=== PATIENT | male | born 1930 | race Caucasian/White ===

== ENCOUNTER 2016-08-01 09:15 | Inpatient (IN) | payer OTHER ==
[~2016-08-01] VITALS: Ht 180.3 cm; Wt 95.8 kg
[2016-08-01] MEDS ORDERED: IV NORMAL SALINE 500ML BAG 500 ML IV SCH (09:30)
--- NOTE | 2016-08-01 09:42 | ED.ADGEN ---
Adult General HPI HPI Patient is a 86 year old man, with history of CAD status post a "silent" IA that occurred about 14 years ago, no stents in place, hypertension, who presents to the emergency department with report of generalized weakness, dizziness and diaphoresis that occurred shortly after eating breakfast this morning. He was seated in the cafeteria at [facility], he comes her daily to visit his who is in rehabilitation, and had eaten breakfast, when he began to feel sweaty, slightly dizzy, and generally weak. He denies any chest pain or shortness of breath, any nausea or vomiting, any focal weakness numbness or tingling, any similar symptoms previously. He states he was feeling well up until this happened this morning. He states that he takes all of his medications as directed by his primary care provider, he does follow at the [place] for [place]. He states that he does not check his blood sugars on a regular basis, blood sugars noted to be 217 in the ED. Denies any injuries, any recent travel or surgery, any swelling in his extremities. 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 States that he did not feel as though he was going to quite pass out, although he was dizzy, denies any loss of consciousness. Does not take any blood thinners. Review of Systems Review of Systems Constitutional: Denies fever or chills. [] Eyes: Denies change in visual acuity. [] HENT: Denies nasal congestion or sore throat. [] Respiratory: Denies cough or shortness of breath. [] Cardiovascular: Denies chest pain or edema. [] GI: Denies abdominal pain, nausea, vomiting, bloody stools or diarrhea. [] : Denies dysuria. [] Musculoskeletal: Denies back pain or joint pain. [] Integument: Denies rash. [] Neurologic: Denies headache, focal weakness or sensory changes. Generalized weakness. Diaphoresis, lightheadedness and dizziness. [] Endocrine: Denies polyuria or polydipsia. [] Lymphatic: Denies swollen glands. [] Psychiatric: Denies depression or anxiety. [] Current Medications Current Medications Current Medications Medications (Trade) Dose Ordered Sig/Brendon Start Time Stop Time Status Last Admin Dose Admin Sodium Chloride (Iv Sodium Chloride 0.9% 1000ml Bag) 1,000 ml @ 1,000 mls/hr 1X ONCE 08/01/16 10:45 08/01/16 11:44 DC 08/01/16 11:17 1,000 MLS/HR Vancomycin HCl 250 ml @ 250 mls/hr 1X ONCE 08/01/16 12:30 08/01/16 13:29 UNV Vancomycin HCl 1 each 1 each PRN DAILY PRN 08/01/16 12:30 Allergies Allergies Allergies Coded Allergies Type Severity Reaction Last Updated Verified Penicillins Allergy Unknown Hives 08/01/16 Yes Physical Exam Physical Exam Constitutional: Well developed, well nourished, no acute distress, non-toxic appearance. [] HENT: Normocephalic, atraumatic, bilateral external ears normal, oropharynx moist, no oral exudates, nose normal. [] Eyes: PERRLA, EOMI, conjunctiva normal, no discharge. [] Neck: Normal range of motion, no tenderness, supple, no stridor. [] Cardiovascular:Heart rate irregular, no murmur , S1, S2, soft heart sounds, no rubs or gallops. [] Lungs & Thorax: Bilateral breath sounds clear to auscultation, no wheezing, rhonchi, rales. No chest wall tenderness or crepitus. [] Abdomen: Bowel sounds normal, soft, no tenderness, no masses, no rebound, rigidity, no guarding, no pulsatile masses. [] Skin: Warm, dry, no erythema, no rash. [] Back: No tenderness, no CVA tenderness. [] Extremities: No tenderness, no cyanosis, no clubbing, ROM intact, no edema. Negative Homans sign. Patient able to the cane at baseline.] Neurologic: Alert and oriented X 3, normal motor function, normal sensory function, no focal deficits noted. [] 5 out of 5 strength in all extremities, normal neurologic examination. Psychologic: Affect normal, judgement normal, mood normal. [] Current Patient Data Vital Signs Vital Signs Date Time Temp Pulse Resp B/P Pulse Ox O2 Delivery O2 Flow Rate FiO2 08/01/16 11:52 60 18 99/62 97 Room Air 08/01/16 09:15 97.7 97.7 Lab Values Laboratory Tests Test 08/01/16 09:30 08/01/16 09:37 08/01/16 09:38 08/01/16 10:35 White Blood Count 8.1x10^3/uL (4.0-11.0) Red Blood Count 4.71x10^6/uL (4.30-5.70) Hemoglobin 14.8g/dL (13.0-17.5) Hematocrit 43.2% (39.0-53.0) Mean Corpuscular Volume 92fL (79-100) Mean Corpuscular Hemoglobin 32pg (25-35) Mean Corpuscular Hemoglobin Concent 34g/dL (31-37) Red Cell Distribution Width 14.0% (11.5-14.5) Platelet Count 168x10^3/uL (140-400) Neutrophils (%) (Auto) 81% (31-73) H Lymphocytes (%) (Auto) 11% (24-48) L Monocytes (%) (Auto) 6% (0-9) Eosinophils (%) (Auto) 1% (0-3) Basophils (%) (Auto) 1% (0-3) Neutrophils # (Auto) 6.5x10^3uL (1.8-7.7) Lymphocytes # (Auto) 0.9x10^3/uL (1.0-4.8) L Monocytes # (Auto) 0.5x10^3/uL (0.0-1.1) Eosinophils # (Auto) 0.1x10^3/uL (0.0-0.7) Basophils # (Auto) 0.1x10^3/uL (0.0-0.2) Prothrombin Time 13.7SEC (11.7-14.0) Prothrombin Time INR 1.1 (0.8-1.1) PTT 26SEC (24-38) Sodium Level 141mmol/L (136-145) Potassium Level 4.2mmol/L (3.5-5.1) Chloride Level 105mmol/L (98-107) Carbon Dioxide Level 27mmol/L (21-32) Anion Gap 9 (6-14) 20mmol/L (6-14) H Blood Urea Nitrogen 26mg/dL (8-26) Creatinine 1.5mg/dL (0.7-1.3) H Estimated GFR (Cockcroft-Gault) 44.4 BUN/Creatinine Ratio 17 (6-20) Glucose Level 257mg/dL (70-99) H 239mg/dL (70-99) H Lactic Acid Level 4.2mmol/L (0.4-2.0) *H 4.1mmol/L (0.4-2.0) *H Calcium Level 8.9mg/dL (8.5-10.1) Total Bilirubin 0.8mg/dL (0.2-1.0) Aspartate Amino Transferase (AST) 18U/L (15-37) Alanine Aminotransferase (ALT) 18U/L (16-63) Alkaline Phosphatase 83U/L (46-116) Troponin I Quantitative < 0.017ng/mL (0.000-0.055) LX-Sfp-Q-Type Natriuretic Peptide 308pg/mL (0-449) Total Protein 6.9g/dL (6.4-8.2) Albumin 3.6g/dL (3.4-5.0) Albumin/Globulin Ratio 1.1 (1.0-1.7) POC Troponin I 0.00ng/ml (<0.08) POC Hemoglobin 13.6g/dL (14-18) L POC Hematocrit 40% (37-52) POC Sodium 140mmol/L (135-145) POC Potassium 4.2mmol/L (3.5-5.0) POC Chloride 105mmol/L (98-110) POC Total CO2 21mmol/L (23-32) L POC Blood Urea Nitrogen 26mg/dL (8-26) POC Creatinine 1.3mg/dL (0.5-1.4) POC Ionized Calcium (Dewayne) 1.05mmol/L (1.13-1.32) L Test 08/01/16 11:00 08/01/16 11:08 Influenza Type A Antigen Negative (NEGATIVE) Influenza Type B Antigen Negative (NEGATIVE) Urine Collection Type U cath Urine Color Yellow Urine Clarity Clear Urine pH 5.5 Urine Specific [place] 1.020 Urine Protein Negativemg/dL (NEG-TRACE) Urine Glucose (UA) 500mg/dL (NEG) Urine Ketones (Stick) Negativemg/dL (NEG) Urine Blood Negative (NEG) Urine Nitrite Negative (NEG) Urine Bilirubin Negative (NEG) Urine Urobilinogen Dipstick 0.2mg/dL (0.2 mg/dL) Urine Leukocyte Esterase Negative (NEG) Urine RBC 0/HPF (0-2) Urine WBC 0/HPF (0-4) Urine Bacteria 0/HPF (0-FEW) Urine Opiates Screen Neg (NEG) Urine Methadone Screen Neg (NEG) Urine Barbiturates Neg (NEG) Urine Phencyclidine Screen Neg (NEG) Urine Amphetamine/Methamphetamine Neg (NEG) Urine Benzodiazepines Screen Neg (NEG) Urine Cocaine Screen Neg (NEG) Urine Cannabinoids Screen Neg (NEG) Urine Ethyl Alcohol Neg (NEG) Laboratory Tests 08/01/16 09:30 Laboratory Tests 08/01/16 09:30 08/01/16 09:38 EKG EKG EC: Irregular rhythm, atrial flutter, heart rate 56 bpm, left axis deviation, Q waves noted in the inferior leads, QTc of 417, QRS of 84, mild baseline artifact noted, low limb lead voltage noted, no prior for comparison. As interpreted by me. [] Radiology/Procedures Radiology/Procedures [] [facility] [address] [place] [address] IMAGING REPORT Signed PATIENT: NANCY LYNN ACCOUNT: [id number] : 1930 LOCATION: ER AGE: 86 SEX: M EXAM STATUS: PRE ER ORD. PHYSICIAN: KELLY MANE DO REASON: near syncope PROCEDURE: PORTABLE CHEST 1V Portable chest, 08/01/2016: History: Near syncope The heart size and pulmonary vascularity are normal. There is calcific plaquing and tortuosity of the thoracic aorta. A small dense nodule in the left midlung is probably a granuloma. No acute infiltrates are seen. There is no evidence of pleural fluid. Moderate hypertrophic spurring is present in the spine IMPRESSION: No acute cardiopulmonary abnormality is detected. DICTATED and SIGNED BY: LEXX MARIE MD DATE: 08/01/16 1006 CC: KELLY MANE DO ~ Course & Med Decision Making Course & Med Decision Making Pertinent Labs and Imaging studies reviewed. (See chart for details) Patient noted to be atrial fibrillation, heart rate is in the 50s to 60s, no history of arrhythmia. He denies any chest pain, shortness of breath, nausea, vomiting, or any symptoms or complaints at this time, denies any preceding symptoms, states that he was feeling fairly well until this episode of diaphoresis and lightheadedness occurred this morning. Blood pressures noted to be low 100s over 60s on arrival, patient did drop his pressure is 80/50, received fluid bolus in the ED, noted to have a lactic of 4.2, a second 500 L bolus was given, patient's blood pressures did improve to low 100s, and 90s over 60s. He continues to deny any complaints at this time. Chest x-ray was unremarkable, laboratory studies do not reveal any evidence of infection or other significant abnormality, aside from the lactic acidosis stated. Patient placed on additional IV fluids, repeat lactic ordered, along with troponins. Although no source of infection identified, due to lactic acidosis, patient given a dose of broad-spectrum antibiotics, and infectious disease was consulted for further evaluation. Blood and urine cultures are pending, although urine culture was negative for bacteria. Findings as above discussed with Dr. Andino of internal medicine, patient accepted to her service as a full admission to the cardiac telemetry floor, with consultation for cardiology and infectious disease as stated. Patient remained comfortable, atrial flutter on the monitor, transfer to the floor without issue. Dragon Disclaimer Dragon Disclaimer This electronic medical record was generated, in whole or in part, using a voice recognition dictation system. Departure Impression: Primary Impression: Near syncope Additional Impressions: Hypotension Lactic acidosis Disposition: 09 ADMITTED INPATIENT Admitting Physician: Jorge Andino Condition: IMPROVED Problem Qualifiers Additional Impressions: Hypotension Hypotension type: unspecified hypotension type Qualified Code: I95.9 - Hypotension, unspecified KELLY MANE DO Aug 01, 2016 09:42
[2016-08-01 09:43] LABS: BASO # 0.1 x10^3/uL (0.0-0.2); BASO % 1 % (0-3); EOS % 1 % (0-3); HEMATOCRIT 43.2 % (39.0-53.0); HEMOGLOBIN 14.8 g/dL (13.0-17.5); LYMPH # 0.9 x10^3/uL (1.0-4.8); LYMPH % 11 % (24-48); MEAN CORPUSCULAR HEMOGLOBIN 32 pg (25-35); MEAN CORPUSCULAR HGB CONC 34 g/dL (31-37); MEAN CORPUSCULAR VOLUME 92 fL (79-100); MONO % 6 % (0-9); NEUT % 81 % (31-73); PLATELET COUNT 168 x10^3/uL (140-400); RED BLOOD COUNT 4.71 x10^6/uL (4.30-5.70); WHITE BLOOD COUNT 8.1 x10^3/uL (4.0-11.0)
[2016-08-01 09:44] LABS: POTASSIUM ISTAT 4.2 mmol/L (3.5-5.0)
[2016-08-01 09:54] LABS: CALCIUM 8.9 mg/dL (8.5-10.1); CREATININE 1.5 mg/dL (0.7-1.3); GFR 44.4; POTASSIUM 4.2 mmol/L (3.5-5.1)
[2016-08-01 09:59] LABS: INR 1.1 (0.8-1.1); PROTHROMBIN TIME PATIENT 13.7 SEC (11.7-14.0)
[2016-08-01 10:00] LABS: ALBUMIN 3.6 g/dL (3.4-5.0); ALBUMIN/GLOBULIN RATIO 1.1 (1.0-1.7); TOTAL BILIRUBIN 0.8 mg/dL (0.2-1.0); TOTAL PROTEIN 6.9 g/dL (6.4-8.2)
[2016-08-01] MEDS ORDERED: IV NORMAL SALINE 500ML BAG 500 ML IV ONE ×2 (10:00→10:30)
--- NOTE | 2016-08-01 10:09 | RAD ---
Portable chest, 08/01/2016: History: Near syncope The heart size and pulmonary vascularity are normal. There is calcific plaquing and tortuosity of the thoracic aorta. A small dense nodule in the left midlung is probably a granuloma. No acute infiltrates are seen. There is no evidence of pleural fluid. Moderate hypertrophic spurring is present in the spine IMPRESSION: No acute cardiopulmonary abnormality is detected.
[2016-08-01] MEDS ORDERED: IV NORMAL SALINE 1000ML BAG 1,000 ML IV ONE (10:45)
[2016-08-01 11:22] LABS: BILIRUBIN,URINE NEGATIVE (NEG); GLUCOSE,URINE 500 mg/dL (NEG); NITRITE,URINE NEGATIVE (NEG); PH,URINE 5.5; PROTEIN,URINE NEGATIVE (NEG-TRACE); UROBILINOGEN,URINE 0.2 mg/dL (0.2 mg/dL)
[2016-08-01 11:29] LABS: BARBITURATES NEG (NEG); BENZODIAZEPINES NEG (NEG); CANNABINOIDS NEG (NEG); COCAINE NEG (NEG); METHADONE NEG (NEG); OPIATES NEG (NEG); PHENCYCLIDINE NEG (NEG)
[2016-08-01 11:31] LABS: BACTERIA,URINE 0 /HPF (0-FEW); RBC,URINE 0 /HPF (0-2); WBC,URINE 0 /HPF (0-4)
[2016-08-01 11:34] LABS: ETHANOL, URINE NEG (NEG)
--- NOTE | 2016-08-01 11:45 | EKG ---
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
[2016-08-01 12:04] LABS: OBC FLU VALID
[2016-08-01] MEDS ORDERED: VANCOMYCIN 1GM IVPB FOR OMNI 250 ML IV ONE (12:30)
[2016-08-01] MEDS ORDERED: VANCOMYCIN PER PHARMACY MC PRN (12:30)
[2016-08-01] MEDS ORDERED: VANCOMYCIN 2 GM in IV NORMAL SALINE 500ML BAG 500 ML IV ONE (12:45)
[2016-08-01] MEDS ORDERED: CEFEPIME HCL 2 GM in IV NORMAL SALINE 100ML 100 ML IV ONE (13:00)
[2016-08-01] MEDS ORDERED: ONDANSETRON PF 4 MG/2 ML VIAL. IV PRN ×2 (14:00→15:30)
[2016-08-01] MEDS ORDERED: ACETAMINOPHEN 325 MG TABLET. PO PRN ×2 (14:00→15:30)
[2016-08-01] MEDS ORDERED: DEXTROSE 50% 25 GM / 50ML DISP.SYRIN. IV PRN (14:00)
[2016-08-01 15:00] VITALS: BP 108/65
--- NOTE | 2016-08-01 15:25 | PDOC1 ---
History and Physical Date of Admission Date of Admission 08/01/16 Identification/Chief Complaint Chief Complaint lightheaded, shaky Problems: Source Source: Chart review, Patient History of Present Illness History of Present Illness Patient is a 86 year old man, with history of CAD status post a "silent" [place] that occurred about 14 years ago, no stents in place, denies HTN, was sen to ER for lightheaded and shaky today. pt was in our cafeteria and will visit his in [facility] for [facility]. He suddenly feels lightheadd, diaphoresis, shaky, cannot stand up or walk. Some nurse get wheelchair and sent him to ER. pT DEnies fever, cough, sob. He said he dosento remember if had irregular heart beat, saying normal IN the past few days, no N/V, Diarrhea. Denies feeling fainting. He said not taking any home meds, not seen a Vice [employer]ing Services. blood sugars noted to be 217 in the ED. Denies any injuries, any recent travel or surgery, any swelling in his extremities. in ER was found santiago A flutter, which is new to him , low BP, got 2L ivf BOLUS ,back to sinus later. LA 4 Past Medical History Cardiovascular: [place] Past Surgical History Past Surgical History: No pertinent history Family History Family History: No Significant Social History Smoke: No ALCOHOL: none Drugs: None Current Problem List Problem List Problems Medical Problems: (1) Hypotension Status: Acute (2) Lactic acidosis Status: Acute (3) Near syncope Status: Acute Current Medications Current Medications Current Medications Medications (Trade) Dose Ordered Sig/Brendon Start Time Stop Time Status Last Admin Dose Admin Acetaminophen (Tylenol) 650 mg PRN Q4HRS PRN 08/01/16 14:00 08/02/16 13:59 Cefepime HCl/ Sodium Chloride (Maxipime/Iv Sodium Chloride 0.9% 100ml) 100 ml @ 200 mls/hr 1X ONCE 08/01/16 13:00 08/01/16 13:29 DC 08/01/16 12:59 200 MLS/HR Dextrose 12.5 gm PRN Q15MIN PRN 08/01/16 14:00 Insulin Aspart (Novolog) 0-5 UNITS TIDWMEALS 08/01/16 17:00 Ondansetron HCl 4 mg 4 mg PRN Q8HRS PRN 08/01/16 14:00 08/02/16 13:59 Sodium Chloride (Iv Sodium Chloride 0.9% 1000ml Bag) 1,000 ml @ 125 mls/hr Q8H 08/01/16 13:46 08/02/16 13:45 Vancomycin HCl 250 ml @ 250 mls/hr 1X ONCE 08/01/16 12:30 08/01/16 13:29 UNV Vancomycin HCl 1 each 1 each PRN DAILY PRN 08/01/16 12:30 Vancomycin HCl/ Sodium Chloride (Iv Sodium Chloride 0.9% 500ml Bag) 500 ml @ 250 mls/hr 1X ONCE 08/01/16 12:45 08/01/16 14:44 DC Allergies Allergies Allergies Coded Allergies Type Severity Reaction Last Updated Verified Penicillins Allergy Unknown Hives 08/01/16 Yes ROS Review of System CONSTITUTIONAL: No fever or chills EYES: No recent changes SKIN: No rash or itching CARDIOVASCULAR: No chest pain, syncope, palpitations, or edema RESPIRATORY: No SOB or cough GASTROINTESTINAL: No nausea, vomiting or abdominal pain NEUROLOGICAL: No headaches or weakness ENDOCRINE: No cold or heat intolerance GENITOURINARY: No urgency or frequency of urination MUSCULOSKELETAL: No back pain or joint pain LYMPHATICS: No enlarged lymph nodes PSYCHIATRIC: No anxiety or depression Physical Exam Physical Exam GEN.: No apparent distress. Alert and oriented. HEENT: Head is normocephalic, atraumatic NECK: Supple. LUNGS: Clear to auscultation. HEART: RRR, S1, S2 present. Peripheral pulses intact ABDOMEN: Soft, nontender. Positive bowel sounds. EXTREMITIES: Without any cyanosis. bl legs 1+edema NEUROLOGIC: Normal speech, normal tone PSYCHIATRIC: Normal affect, normal mood. SKIN: No ulcerations Vitals Vitals Vital Signs Date Time Temp Pulse Resp B/P Pulse Ox O2 Delivery O2 Flow Rate FiO2 08/01/16 12:52 75 18 108/66 97 Room Air 08/01/16 09:15 97.7 97.7 Labs Labs Laboratory Tests Test 08/01/16 09:30 08/01/16 09:37 08/01/16 09:38 08/01/16 10:35 White Blood Count 8.1x10^3/uL (4.0-11.0) Red Blood Count 4.71x10^6/uL (4.30-5.70) Hemoglobin 14.8g/dL (13.0-17.5) Hematocrit 43.2% (39.0-53.0) Mean Corpuscular Volume 92fL (79-100) Mean Corpuscular Hemoglobin 32pg (25-35) Mean Corpuscular Hemoglobin Concent 34g/dL (31-37) Red Cell Distribution Width 14.0% (11.5-14.5) Platelet Count 168x10^3/uL (140-400) Neutrophils (%) (Auto) 81% (31-73) Lymphocytes (%) (Auto) 11% (24-48) Monocytes (%) (Auto) 6% (0-9) Eosinophils (%) (Auto) 1% (0-3) Basophils (%) (Auto) 1% (0-3) Neutrophils # (Auto) 6.5x10^3uL (1.8-7.7) Lymphocytes # (Auto) 0.9x10^3/uL (1.0-4.8) Monocytes # (Auto) 0.5x10^3/uL (0.0-1.1) Eosinophils # (Auto) 0.1x10^3/uL (0.0-0.7) Basophils # (Auto) 0.1x10^3/uL (0.0-0.2) Prothrombin Time 13.7SEC (11.7-14.0) Prothromb Time International Ratio 1.1 (0.8-1.1) Activated Partial Thromboplast Time 26SEC (24-38) Sodium Level 141mmol/L (136-145) Potassium Level 4.2mmol/L (3.5-5.1) Chloride Level 105mmol/L (98-107) Carbon Dioxide Level 27mmol/L (21-32) Anion Gap 9 (6-14) 20mmol/L (6-14) Blood Urea Nitrogen 26mg/dL (8-26) Creatinine 1.5mg/dL (0.7-1.3) Estimated GFR (Cockcroft-Gault) 44.4 BUN/Creatinine Ratio 17 (6-20) Glucose Level 257mg/dL (70-99) 239mg/dL (70-99) Lactic Acid Level 4.2mmol/L (0.4-2.0) 4.1mmol/L (0.4-2.0) Calcium Level 8.9mg/dL (8.5-10.1) Total Bilirubin 0.8mg/dL (0.2-1.0) Aspartate Amino Transf (AST/SGOT) 18U/L (15-37) Alanine Aminotransferase (ALT/SGPT) 18U/L (16-63) Alkaline Phosphatase 83U/L (46-116) Troponin I Quantitative < 0.017ng/mL (0.000-0.055) OQ-Aip-X-Type Natriuretic Peptide 308pg/mL (0-449) Total Protein 6.9g/dL (6.4-8.2) Albumin 3.6g/dL (3.4-5.0) Albumin/Globulin Ratio 1.1 (1.0-1.7) Bedside Troponin I 0.00ng/ml (<0.08) Bedside Hemoglobin 13.6g/dL (14-18) Bedside Hematocrit 40% (37-52) Bedside Sodium 140mmol/L (135-145) Bedside Potassium 4.2mmol/L (3.5-5.0) Bedside Chloride 105mmol/L (98-110) Bedside Total CO2 21mmol/L (23-32) Bedside Blood Urea Nitrogen 26mg/dL (8-26) Bedside Creatinine 1.3mg/dL (0.5-1.4) Bedside Ionized Calcium (Dewayne) 1.05mmol/L (1.13-1.32) Test 08/01/16 11:00 08/01/16 11:08 Influenza Type A Antigen Negative (NEGATIVE) Influenza Type B Antigen Negative (NEGATIVE) Urine Collection Type U cath Urine Color Yellow Urine Clarity Clear Urine pH 5.5 Urine Specific [place] 1.020 Urine Protein Negativemg/dL (NEG-TRACE) Urine Glucose (UA) 500mg/dL (NEG) Urine Ketones (Stick) Negativemg/dL (NEG) Urine Blood Negative (NEG) Urine Nitrite Negative (NEG) Urine Bilirubin Negative (NEG) Urine Urobilinogen Dipstick 0.2mg/dL (0.2 mg/dL) Urine Leukocyte Esterase Negative (NEG) Urine RBC 0/HPF (0-2) Urine WBC 0/HPF (0-4) Urine Bacteria 0/HPF (0-FEW) Urine Opiates Screen Neg (NEG) Urine Methadone Screen Neg (NEG) Urine Barbiturates Neg (NEG) Urine Phencyclidine Screen Neg (NEG) Urine Amphetamine/Methamphetamine Neg (NEG) Urine Benzodiazepines Screen Neg (NEG) Urine Cocaine Screen Neg (NEG) Urine Cannabinoids Screen Neg (NEG) Urine Ethyl Alcohol Neg (NEG) Laboratory Tests Test 08/01/16 09:30 08/01/16 09:37 08/01/16 09:38 08/01/16 10:35 White Blood Count 8.1x10^3/uL (4.0-11.0) Red Blood Count 4.71x10^6/uL (4.30-5.70) Hemoglobin 14.8g/dL (13.0-17.5) Hematocrit 43.2% (39.0-53.0) Mean Corpuscular Volume 92fL (79-100) Mean Corpuscular Hemoglobin 32pg (25-35) Mean Corpuscular Hemoglobin Concent 34g/dL (31-37) Red Cell Distribution Width 14.0% (11.5-14.5) Platelet Count 168x10^3/uL (140-400) Neutrophils (%) (Auto) 81% (31-73) Lymphocytes (%) (Auto) 11% (24-48) Monocytes (%) (Auto) 6% (0-9) Eosinophils (%) (Auto) 1% (0-3) Basophils (%) (Auto) 1% (0-3) Neutrophils # (Auto) 6.5x10^3uL (1.8-7.7) Lymphocytes # (Auto) 0.9x10^3/uL (1.0-4.8) Monocytes # (Auto) 0.5x10^3/uL (0.0-1.1) Eosinophils # (Auto) 0.1x10^3/uL (0.0-0.7) Basophils # (Auto) 0.1x10^3/uL (0.0-0.2) Prothrombin Time 13.7SEC (11.7-14.0) Prothromb Time International Ratio 1.1 (0.8-1.1) Activated Partial Thromboplast Time 26SEC (24-38) Sodium Level 141mmol/L (136-145) Potassium Level 4.2mmol/L (3.5-5.1) Chloride Level 105mmol/L (98-107) Carbon Dioxide Level 27mmol/L (21-32) Anion Gap 9 (6-14) 20mmol/L (6-14) Blood Urea Nitrogen 26mg/dL (8-26) Creatinine 1.5mg/dL (0.7-1.3) Estimated GFR (Cockcroft-Gault) 44.4 BUN/Creatinine Ratio 17 (6-20) Glucose Level 257mg/dL (70-99) 239mg/dL (70-99) Lactic Acid Level 4.2mmol/L (0.4-2.0) 4.1mmol/L (0.4-2.0) Calcium Level 8.9mg/dL (8.5-10.1) Total Bilirubin 0.8mg/dL (0.2-1.0) Aspartate Amino Transf (AST/SGOT) 18U/L (15-37) Alanine Aminotransferase (ALT/SGPT) 18U/L (16-63) Alkaline Phosphatase 83U/L (46-116) Troponin I Quantitative < 0.017ng/mL (0.000-0.055) HT-Vij-P-Type Natriuretic Peptide 308pg/mL (0-449) Total Protein 6.9g/dL (6.4-8.2) Albumin 3.6g/dL (3.4-5.0) Albumin/Globulin Ratio 1.1 (1.0-1.7) Bedside Troponin I 0.00ng/ml (<0.08) Bedside Hemoglobin 13.6g/dL (14-18) Bedside Hematocrit 40% (37-52) Bedside Sodium 140mmol/L (135-145) Bedside Potassium 4.2mmol/L (3.5-5.0) Bedside Chloride 105mmol/L (98-110) Bedside Total CO2 21mmol/L (23-32) Bedside Blood Urea Nitrogen 26mg/dL (8-26) Bedside Creatinine 1.3mg/dL (0.5-1.4) Bedside Ionized Calcium (Dewayne) 1.05mmol/L (1.13-1.32) Test 08/01/16 11:00 08/01/16 11:08 Influenza Type A Antigen Negative (NEGATIVE) Influenza Type B Antigen Negative (NEGATIVE) Urine Collection Type U cath Urine Color Yellow Urine Clarity Clear Urine pH 5.5 Urine Specific [place] 1.020 Urine Protein Negativemg/dL (NEG-TRACE) Urine Glucose (UA) 500mg/dL (NEG) Urine Ketones (Stick) Negativemg/dL (NEG) Urine Blood Negative (NEG) Urine Nitrite Negative (NEG) Urine Bilirubin Negative (NEG) Urine Urobilinogen Dipstick 0.2mg/dL (0.2 mg/dL) Urine Leukocyte Esterase Negative (NEG) Urine RBC 0/HPF (0-2) Urine WBC 0/HPF (0-4) Urine Bacteria 0/HPF (0-FEW) Urine Opiates Screen Neg (NEG) Urine Methadone Screen Neg (NEG) Urine Barbiturates Neg (NEG) Urine Phencyclidine Screen Neg (NEG) Urine Amphetamine/Methamphetamine Neg (NEG) Urine Benzodiazepines Screen Neg (NEG) Urine Cocaine Screen Neg (NEG) Urine Cannabinoids Screen Neg (NEG) Urine Ethyl Alcohol Neg (NEG) VTE Prophylaxis Ordered VTE Prophylaxis Devices: Yes VTE Pharmacological Prophylaxi: Yes Assessment/Plan Assessment/Plan 1. new syncope 2. bradycardia with aflutter with hypotension 3. lactate acidosis 4. CKD3 plan: 1. card, id consult 2. ivf 2 L in ER 3. repeat LA 4. echo 5. check tsh, cycle CE pt likely dosenot have infection, got vanco and cefepime in ER, waiting for ID consult. fu miguelx, bcx EMI MOORE MD Aug 01, 2016 15:25
--- NOTE | 2016-08-01 16:05 | PDOC ---
Infectious Disease Note Vital Sign Vital Signs Vital Signs Date Time Temp Pulse Resp B/P Pulse Ox O2 Delivery O2 Flow Rate FiO2 08/01/16 12:52 75 18 108/66 97 Room Air 08/01/16 09:15 97.7 97.7 Labs Lab Laboratory Tests Test 08/01/16 09:30 08/01/16 09:37 08/01/16 09:38 08/01/16 10:35 White Blood Count 8.1x10^3/uL (4.0-11.0) Red Blood Count 4.71x10^6/uL (4.30-5.70) Hemoglobin 14.8g/dL (13.0-17.5) Hematocrit 43.2% (39.0-53.0) Mean Corpuscular Volume 92fL (79-100) Mean Corpuscular Hemoglobin 32pg (25-35) Mean Corpuscular Hemoglobin Concent 34g/dL (31-37) Red Cell Distribution Width 14.0% (11.5-14.5) Platelet Count 168x10^3/uL (140-400) Neutrophils (%) (Auto) 81% (31-73) Lymphocytes (%) (Auto) 11% (24-48) Monocytes (%) (Auto) 6% (0-9) Eosinophils (%) (Auto) 1% (0-3) Basophils (%) (Auto) 1% (0-3) Neutrophils # (Auto) 6.5x10^3uL (1.8-7.7) Lymphocytes # (Auto) 0.9x10^3/uL (1.0-4.8) Monocytes # (Auto) 0.5x10^3/uL (0.0-1.1) Eosinophils # (Auto) 0.1x10^3/uL (0.0-0.7) Basophils # (Auto) 0.1x10^3/uL (0.0-0.2) Prothrombin Time 13.7SEC (11.7-14.0) Prothromb Time International Ratio 1.1 (0.8-1.1) Activated Partial Thromboplast Time 26SEC (24-38) Sodium Level 141mmol/L (136-145) Potassium Level 4.2mmol/L (3.5-5.1) Chloride Level 105mmol/L (98-107) Carbon Dioxide Level 27mmol/L (21-32) Anion Gap 9 (6-14) 20mmol/L (6-14) Blood Urea Nitrogen 26mg/dL (8-26) Creatinine 1.5mg/dL (0.7-1.3) Estimated GFR (Cockcroft-Gault) 44.4 BUN/Creatinine Ratio 17 (6-20) Glucose Level 257mg/dL (70-99) 239mg/dL (70-99) Lactic Acid Level 4.2mmol/L (0.4-2.0) 4.1mmol/L (0.4-2.0) Calcium Level 8.9mg/dL (8.5-10.1) Total Bilirubin 0.8mg/dL (0.2-1.0) Aspartate Amino Transf (AST/SGOT) 18U/L (15-37) Alanine Aminotransferase (ALT/SGPT) 18U/L (16-63) Alkaline Phosphatase 83U/L (46-116) Troponin I Quantitative < 0.017ng/mL (0.000-0.055) QB-Owl-M-Type Natriuretic Peptide 308pg/mL (0-449) Total Protein 6.9g/dL (6.4-8.2) Albumin 3.6g/dL (3.4-5.0) Albumin/Globulin Ratio 1.1 (1.0-1.7) Bedside Troponin I 0.00ng/ml (<0.08) Bedside Hemoglobin 13.6g/dL (14-18) Bedside Hematocrit 40% (37-52) Bedside Sodium 140mmol/L (135-145) Bedside Potassium 4.2mmol/L (3.5-5.0) Bedside Chloride 105mmol/L (98-110) Bedside Total CO2 21mmol/L (23-32) Bedside Blood Urea Nitrogen 26mg/dL (8-26) Bedside Creatinine 1.3mg/dL (0.5-1.4) Bedside Ionized Calcium (Dewayne) 1.05mmol/L (1.13-1.32) Test 08/01/16 11:00 08/01/16 11:08 Influenza Type A Antigen Negative (NEGATIVE) Influenza Type B Antigen Negative (NEGATIVE) Urine Collection Type U cath Urine Color Yellow Urine Clarity Clear Urine pH 5.5 Urine Specific [place] 1.020 Urine Protein Negativemg/dL (NEG-TRACE) Urine Glucose (UA) 500mg/dL (NEG) Urine Ketones (Stick) Negativemg/dL (NEG) Urine Blood Negative (NEG) Urine Nitrite Negative (NEG) Urine Bilirubin Negative (NEG) Urine Urobilinogen Dipstick 0.2mg/dL (0.2 mg/dL) Urine Leukocyte Esterase Negative (NEG) Urine RBC 0/HPF (0-2) Urine WBC 0/HPF (0-4) Urine Bacteria 0/HPF (0-FEW) Urine Opiates Screen Neg (NEG) Urine Methadone Screen Neg (NEG) Urine Barbiturates Neg (NEG) Urine Phencyclidine Screen Neg (NEG) Urine Amphetamine/Methamphetamine Neg (NEG) Urine Benzodiazepines Screen Neg (NEG) Urine Cocaine Screen Neg (NEG) Urine Cannabinoids Screen Neg (NEG) Urine Ethyl Alcohol Neg (NEG) Objective Assessment Lactic acidosis Hypotension PCN allergy A-flutter Renal insufficiency Diabetes Plan Plan of Care vanc and cefepime Check procalcitonin level monitor labs/temp f/u BC Supportive care Thank you Patient examined. Chart reviewed. Case discussed with TRAIN CONDUCTOR. Agree with above plan. MILLIE LINDER APRN Aug 01, 2016 16:05 ZAN CARRERA MD Aug 01, 2016 16:31
[2016-08-01] MEDS: IV NORMAL SALINE 1000ML BAG 1,000 ML IV SCH (16:35)
[2016-08-01] MEDS: ENOXAPARIN 40 MG/0.4 ML DISP.SYRIN. SQ SCH (16:49)
[2016-08-01] MEDS: VANCOMYCIN 1.5 GM in IV NORMAL SALINE 500ML BAG 500 ML IV SCH (17:00)
[2016-08-01] MEDS: INSULIN ASPART 300 UNITS/3 ML INSULN.PEN SQ SCH (17:00)
[2016-08-01] MEDS ORDERED: METF10002 PO (18:53)
[2016-08-01] MEDS ORDERED: LORA10TA3 PO (18:53)
[2016-08-01] MEDS ORDERED: TERA5CAP3 PO (18:54)
[2016-08-01] MEDS ORDERED: SIMV80TA3 PO (18:54)
[2016-08-01] MEDS ORDERED: FOSI20TA PO (18:55)
[2016-08-01] MEDS ORDERED: GLIP10TA13 PO (18:55)
[2016-08-01] MEDS ORDERED: OMEP20CA9 PO (18:56)
[2016-08-01] MEDS ORDERED: METO25TA4 PO (18:56)
[2016-08-01] MEDS ORDERED: CHOL10003 PO (18:57)
[2016-08-01 20:05] VITALS: BP 112/56
[2016-08-01] MEDS ORDERED: PANTOPRAZOLE 40 MG TABLET. PO ONE (23:00)
[2016-08-01 23:25] VITALS: BP 112/61
[2016-08-02] MEDS: IV NORMAL SALINE 1000ML BAG 1,000 ML IV SCH ×2 (01:30→09:19)
[2016-08-02 02:09] LABS: BASO # 0.1 x10^3/uL (0.0-0.2); BASO % 1 % (0-3); EOS % 1 % (0-3); HEMATOCRIT 36.4 % (39.0-53.0); HEMOGLOBIN 12.6 g/dL (13.0-17.5); LYMPH # 1.1 x10^3/uL (1.0-4.8); LYMPH % 14 % (24-48); MEAN CORPUSCULAR HEMOGLOBIN 32 pg (25-35); MEAN CORPUSCULAR HGB CONC 35 g/dL (31-37); MEAN CORPUSCULAR VOLUME 92 fL (79-100); MONO % 8 % (0-9); NEUT % 77 % (31-73); PLATELET COUNT 142 x10^3/uL (140-400); RED BLOOD COUNT 3.95 x10^6/uL (4.30-5.70); WHITE BLOOD COUNT 8.4 x10^3/uL (4.0-11.0)
[2016-08-02 02:17] LABS: CALCIUM 7.9 mg/dL (8.5-10.1); CREATININE 1.1 mg/dL (0.7-1.3); GFR 63.5; POTASSIUM 4.1 mmol/L (3.5-5.1)
[2016-08-02 03:35] VITALS: BP 130/72
[2016-08-02 07:22] VITALS: BP 123/75
--- NOTE | 2016-08-02 07:25 | CONS ---
DATE OF CONSULTATION: 08/01/2016 Mark Eastman APRN dictating for Zan Carrera MD, infectious disease. REFERRING PHYSICIAN: Dr. Dumont. REASON FOR CONSULTATION: Lactic acidosis. HISTORY OF PRESENT ILLNESS: This patient is an 86-year-old gentleman with a history of diabetes mellitus who was having breakfast in our hospital cafeteria earlier this morning. After he ate, he became acutely weak, diaphoretic and lightheaded. He was sent to the emergency room where he was found to be bradycardic, hypotensive and in atrial flutter. His pressures improved with IV fluid boluses. He had a normal white blood cell count with a lactic acid of 4.2. Troponin was less than 0.017. Urinalysis was unremarkable for infection. Blood cultures were obtained. The patient was started on vancomycin and cefepime by the ER doctor out of concern for possible infection. PAST MEDICAL HISTORY: Diabetes mellitus and "silent myocardial infarction." PAST SURGICAL HISTORY: No recent surgeries. SOCIAL HISTORY: The patient is . He lives at home and is independent of his activities of daily living. His is currently residing in a custodial where he visits her daily. 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 ALLERGIES: PENICILLIN causing a rash-type reaction. MEDICATIONS: Vancomycin and cefepime. Other medications are available and have been reviewed on the MAR. He is unable to recall home medications. His daughter is apparently working on getting a list from the [employer]. REVIEW OF SYSTEMS: Denies fever. The patient is feeling better. He had the shakes earlier, for which he attributes to a cold room. He has a runny nose. Denies headaches, sinus congestion or sore throat. Denies cough, shortness of air or wheezing. Denies chest pain, palpitations or swelling. Denies nausea, vomiting or diarrhea. He has some mild dysuria after being straight cathed in the ER. Denies back pain. He is ambulatory with a cane. Denies rash. Denies joint pain or muscle aches. PHYSICAL EXAMINATION: GENERAL: male lying in bed, in no apparent distress. VITAL SIGNS: Temperature is 97.7, blood pressure 108/66, heart rate 75, respiratory rate 18, pulse oximetry is 97% on room air. Weight is 215 pounds. HEENT: Pupils are equally round. Normal conjunctivae. Oral mucosa is pink and moist. Edentulous. NECK: Supple. LUNGS: Clear to auscultation bilaterally. HEART: Normal S1 and S2. ABDOMEN: Bowel sounds are present, soft, nontender. EXTREMITIES: No gross edema or cyanosis. SKIN: Without rash. Warm to touch. NEUROLOGIC: Alert and oriented x 3. Moves all extremities. LABORATORY DATA: WBC 8.1, hemoglobin 14.8, platelet count 168,000. Sodium 140, potassium 4.2, creatinine 1.5, BUN 26, glucose 239. Lactic acid 4.1, total bilirubin 0.8, AST 18, ALT 18. Troponin less than 0.017, albumin 3.6. MICROBIOLOGY DATA: Urinalysis unremarkable for infection. Urine toxicology negative. Influenza screen negative. RADIOLOGICAL STUDIES: Chest x-ray: No acute infiltrates or evidence of pleural fluid. A small dense nodule in the left midlung noted, probably a granuloma. IMPRESSION: 1. Lactic acidosis. 2. Hypotension. 3. PENICILLIN ALLERGY. 4. Atrial flutter. 5. Renal insufficiency. 6. Diabetes mellitus. PLAN: For now, continue the vancomycin and cefepime. Check a procalcitonin level. Monitor laboratory values and temperature. We will follow up on blood cultures. Supportive care. Thank you, Dr. Dumont, for asking us to participate in this patient's care. Should you have further questions or concerns, please call. The patient seen and examined and plan of care implemented by Dr. Zan Carrera. ZAN CARRERA MD DR: JONY/sharon JOB#: [id number] / [id number] IRON
[2016-08-02] MEDS: METFORMIN 1,000 MG TABLET PO SCH ×3 (08:00→16:46)
[2016-08-02] MEDS: INSULIN ASPART 300 UNITS/3 ML INSULN.PEN SQ SCH ×3 (08:00→17:00)
--- NOTE | 2016-08-02 08:14 | PDOC ---
Infectious Disease Note Subjective Subjective Didn't sleep well with noises Has Upper resp symptoms. in rehab with a lot of "runny nosed women" ROS ROS GEN: Denies fevers, chills, sweats HEENT: Denies blurred vision, sore throat CV: Denies chest pain RESP: Denies shortness of air. Occ cough with mild congestion GI: Denies n/v/d NEURO: Denies confusion, dizziness MSK: Denies weakness, joint pain/swelling Vital Sign Vital Signs Vital Signs Date Time Temp Pulse Resp B/P Pulse Ox O2 Delivery O2 Flow Rate FiO2 08/02/16 07:22 98.3 61 21 123/75 93 Room Air 98.3 Physical Exam PHYSICAL EXAM GENERAL: NAD, Alert HEENT: PERRL, OC/OP -clear NECK: Supple, no JVD, no LN LUNGS: Clear HEART: S1S2, no gallop, no murmur ABD: Soft, NT, no organomegaly, no rebound EXT: No edema, no cyanosis IMMIGRATION ASSOCIATE: Alert, oriented x 3, no focal neurologic deficit SKIN: No rash IV: ok Labs Lab Laboratory Tests Test 08/01/16 09:30 08/01/16 09:37 08/01/16 09:38 08/01/16 10:00 White Blood Count 8.1x10^3/uL (4.0-11.0) Red Blood Count 4.71x10^6/uL (4.30-5.70) Hemoglobin 14.8g/dL (13.0-17.5) Hematocrit 43.2% (39.0-53.0) Mean Corpuscular Volume 92fL (79-100) Mean Corpuscular Hemoglobin 32pg (25-35) Mean Corpuscular Hemoglobin Concent 34g/dL (31-37) Red Cell Distribution Width 14.0% (11.5-14.5) Platelet Count 168x10^3/uL (140-400) Neutrophils (%) (Auto) 81% (31-73) Lymphocytes (%) (Auto) 11% (24-48) Monocytes (%) (Auto) 6% (0-9) Eosinophils (%) (Auto) 1% (0-3) Basophils (%) (Auto) 1% (0-3) Neutrophils # (Auto) 6.5x10^3uL (1.8-7.7) Lymphocytes # (Auto) 0.9x10^3/uL (1.0-4.8) Monocytes # (Auto) 0.5x10^3/uL (0.0-1.1) Eosinophils # (Auto) 0.1x10^3/uL (0.0-0.7) Basophils # (Auto) 0.1x10^3/uL (0.0-0.2) Prothrombin Time 13.7SEC (11.7-14.0) Prothromb Time International Ratio 1.1 (0.8-1.1) Activated Partial Thromboplast Time 26SEC (24-38) Sodium Level 141mmol/L (136-145) Potassium Level 4.2mmol/L (3.5-5.1) Chloride Level 105mmol/L (98-107) Carbon Dioxide Level 27mmol/L (21-32) Anion Gap 9 (6-14) 20mmol/L (6-14) Blood Urea Nitrogen 26mg/dL (8-26) Creatinine 1.5mg/dL (0.7-1.3) Estimated GFR (Cockcroft-Gault) 44.4 BUN/Creatinine Ratio 17 (6-20) Glucose Level 257mg/dL (70-99) 239mg/dL (70-99) Lactic Acid Level 4.2mmol/L (0.4-2.0) Calcium Level 8.9mg/dL (8.5-10.1) Total Bilirubin 0.8mg/dL (0.2-1.0) Aspartate Amino Transf (AST/SGOT) 18U/L (15-37) Alanine Aminotransferase (ALT/SGPT) 18U/L (16-63) Alkaline Phosphatase 83U/L (46-116) Troponin I Quantitative < 0.017ng/mL (0.000-0.055) PZ-Lwg-[id number]-Type Natriuretic Peptide 308pg/mL (0-449) Total Protein 6.9g/dL (6.4-8.2) Albumin 3.6g/dL (3.4-5.0) Albumin/Globulin Ratio 1.1 (1.0-1.7) Bedside Troponin I 0.00ng/ml (<0.08) Bedside Hemoglobin 13.6g/dL (14-18) Bedside Hematocrit 40% (37-52) Bedside Sodium 140mmol/L (135-145) Bedside Potassium 4.2mmol/L (3.5-5.0) Bedside Chloride 105mmol/L (98-110) Bedside Total CO2 21mmol/L (23-32) Bedside Blood Urea Nitrogen 26mg/dL (8-26) Bedside Creatinine 1.3mg/dL (0.5-1.4) Bedside Ionized Calcium (Dewayne) 1.05mmol/L (1.13-1.32) Procalcitonin < 0.05ng/mL (0.00-0.10) Test 08/01/16 10:35 08/01/16 11:00 08/01/16 11:08 08/01/16 16:05 Lactic Acid Level 4.1mmol/L (0.4-2.0) 2.2mmol/L (0.4-2.0) Influenza Type A Antigen Negative (NEGATIVE) Influenza Type B Antigen Negative (NEGATIVE) Urine Collection Type U cath Urine Color Yellow Urine Clarity Clear Urine pH 5.5 Urine Specific [place] 1.020 Urine Protein Negativemg/dL (NEG-TRACE) Urine Glucose (UA) 500mg/dL (NEG) Urine Ketones (Stick) Negativemg/dL (NEG) Urine Blood Negative (NEG) Urine Nitrite Negative (NEG) Urine Bilirubin Negative (NEG) Urine Urobilinogen Dipstick 0.2mg/dL (0.2 mg/dL) Urine Leukocyte Esterase Negative (NEG) Urine RBC 0/HPF (0-2) Urine WBC 0/HPF (0-4) Urine Bacteria 0/HPF (0-FEW) Urine Opiates Screen Neg (NEG) Urine Methadone Screen Neg (NEG) Urine Barbiturates Neg (NEG) Urine Phencyclidine Screen Neg (NEG) Urine Amphetamine/Methamphetamine Neg (NEG) Urine Benzodiazepines Screen Neg (NEG) Urine Cocaine Screen Neg (NEG) Urine Cannabinoids Screen Neg (NEG) Urine Ethyl Alcohol Neg (NEG) Test 08/01/16 17:14 08/01/16 19:40 08/01/16 20:39 08/02/16 01:50 Glucose (Fingerstick) 100mg/dL (70-99) 159mg/dL (70-99) Troponin I Quantitative < 0.017ng/mL (0.000-0.055) < 0.017ng/mL (0.000-0.055) White Blood Count 8.4x10^3/uL (4.0-11.0) Red Blood Count 3.95x10^6/uL (4.30-5.70) Hemoglobin 12.6g/dL (13.0-17.5) Hematocrit 36.4% (39.0-53.0) Mean Corpuscular Volume 92fL (79-100) Mean Corpuscular Hemoglobin 32pg (25-35) Mean Corpuscular Hemoglobin Concent 35g/dL (31-37) Red Cell Distribution Width 14.0% (11.5-14.5) Platelet Count 142x10^3/uL (140-400) Neutrophils (%) (Auto) 77% (31-73) Lymphocytes (%) (Auto) 14% (24-48) Monocytes (%) (Auto) 8% (0-9) Eosinophils (%) (Auto) 1% (0-3) Basophils (%) (Auto) 1% (0-3) Neutrophils # (Auto) 6.4x10^3uL (1.8-7.7) Lymphocytes # (Auto) 1.1x10^3/uL (1.0-4.8) Monocytes # (Auto) 0.6x10^3/uL (0.0-1.1) Eosinophils # (Auto) 0.1x10^3/uL (0.0-0.7) Basophils # (Auto) 0.1x10^3/uL (0.0-0.2) Sodium Level 145mmol/L (136-145) Potassium Level 4.1mmol/L (3.5-5.1) Chloride Level 111mmol/L (98-107) Carbon Dioxide Level 24mmol/L (21-32) Anion Gap 10 (6-14) Blood Urea Nitrogen 23mg/dL (8-26) Creatinine 1.1mg/dL (0.7-1.3) Estimated GFR (Cockcroft-Gault) 63.5 Glucose Level 146mg/dL (70-99) Calcium Level 7.9mg/dL (8.5-10.1) Test 08/02/16 04:04 Lactic Acid Level 0.9mmol/L (0.4-2.0) Objective Assessment Lactic acidosis - better. Normal procalcitonin Hypotension - ? syncope ? viral process PCN allergy A-flutter Renal insufficiency Diabetes Plan Plan of Care Cont vanc and cefepime for now but wean soon Add po Doxy for atypical monitor labs/temp f/u Supportive care ARVIND DELANEY MD Aug 02, 2016 08:14
[2016-08-02] MEDS ORDERED: CHOLECALCIFEROL (VITAMIN D3) 1,000 UNIT TABLET PO SCH (09:00)
[2016-08-02] MEDS ORDERED: DOXYCYCLINE HYCLATE 100 MG TABLET PO SCH (09:00)
[2016-08-02] MEDS ORDERED: METOPROLOL TART IMMED RELEASE 25 MG TABLET PO SCH (09:00)
[2016-08-02] MEDS ORDERED: CETIRIZINE HCL 10 MG TABLET PO SCH (09:00)
[2016-08-02] MEDS ORDERED: LISINOPRIL 10 MG TABLET PO SCH (09:00)
--- NOTE | 2016-08-02 09:01 | PDOC2 ---
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 LH, diaphoretic at PP visiting no routine home meds. does not see field observer BG was [id number] This is a pleasant 86 yo male admitted for complains of lightheadedness. Reports that he was having breakfast at [facility] cafeteria, getting ready to see his at the senior care. He was eating when suddenly he felt lightheaded, drowsy and diaphoretic. He attempted to stand up but he could not because he felt weak. No lost of consciousness. There was no complains of any paresthesias , visual/auditory disturbances, unilateral weakness, or dysarthria. No complains of chest pain nor SOA and no complains of WHITE nor palpitations. Reports that he has not had this episode in a long while. He does have a history of CAD with silent ID accdg to him remotely around 1999. The last time he saw a field observer was >2 yrs ago. [facility] No prior hx of AFIB or any arrhythmias. He does have HTN, HLP, and DM2 and in the last 6 months he has been intermittent with most of his medications claiming that he has been quite busy and sometimes he forgets or no time for it. 24hr prior to his presyncopal event he drank close to 1 liter of fluid and could not tell me exactly if he has been taking his BG medications. He also noted decreased UOP and has been having black stools. Reports no nausea, vomiting, nor diarrhea. No fever or chills. Denies any PUD nor VTE in the past. Upon admission he was noted with controlled afib. PAST MEDICAL HISTORY Cardiovascular: HTN, Hyperlipidemia Pulmonary: No pertinent hx CENTRAL NERVOUS SYSTEM: Other (No pertinent history) GI: GERD Heme/Onc: No pertinent hx Hepatobiliary: No pertinent hx Psych: No pertinent hx Musculoskeletal: Osteoarthritis Rheumatologic: No pertinent hx Infectious disease: No pertinent hx ENT: Allergic Rhinitis Renal/: Benign prostatic enlarg. Endocrine: Diabetes (2) Dermatology: No pertinent hx PAST SURGICAL HISTORY Past Surgical History: Appendectomy, Cataract Removal, Total knee replacement ( right in 1999), Other (right trigger finger release) FAMILY HISTORY Family History noncontributory to age SOCIAL HISTORY Smoke: No (quit remotely over 45 yrs ago, 5 pk yr) ALCOHOL: none Drugs: None Lives: Alone CURRENT MEDICATIONS CURRENT MEDICATIONS Current Medications Medications (Trade) Dose Ordered Sig/Brendon Route PRN Reason Start Time Stop Time Status Last Admin Dose Admin Sodium Chloride 500 ml @ 500 mls/hr 1X ONCE IV 08/01/16 10:00 08/01/16 10:59 DC 08/01/16 10:00 Sodium Chloride 500 ml @ 500 mls/hr 1X ONCE IV 08/01/16 10:30 08/01/16 11:29 DC 08/01/16 10:37 Sodium Chloride 1,000 ml @ 1,000 mls/hr 1X ONCE IV 08/01/16 10:45 08/01/16 11:44 DC 08/01/16 11:17 Cefepime HCl/ Sodium Chloride (Maxipime/Iv Sodium Chloride 0.9% 100ml) 100 ml @ 200 mls/hr 1X ONCE IV 08/01/16 13:00 08/01/16 13:29 DC 08/01/16 12:59 Vancomycin HCl 1 each 1 each PRN DAILY PRN MC SEE COMMENTS 08/01/16 12:30 08/01/16 16:30 Vancomycin HCl 2 gm/Sodium Chloride 500 ml @ 250 mls/hr 1X ONCE IV 08/01/16 12:45 08/01/16 14:44 DC 08/01/16 16:37 Sodium Chloride (Iv Sodium Chloride 0.9% 1000ml Bag) 1,000 ml @ 125 mls/hr Q8H IV 08/01/16 13:46 08/02/16 13:45 08/02/16 01:30 Enoxaparin Sodium (Lovenox 40mg Syringe) 40 mg Q24H SQ 08/01/16 15:45 08/01/16 16:49 ALLERGIES ALLERGIES: Coded Allergies: Penicillins (Verified Allergy, Intermediate, Hives, 08/01/16) ROS Review of System 14 point ROS evaluated with pertinent positives noted per HPI PHYSICAL EXAM General: Alert, Oriented X3, Cooperative, No acute distress HEENT: Atraumatic, Mucous membr. moist/pink Lungs: Clear to auscultation, Normal air movement Heart: Regular rate, Normal S1, Normal S2, Other (2/6 systolic murmur to LLS border) Extremities: No cyanosis, Other (1+ bilateral LE pitting edema) Skin: No breakdown Neuro: Normal speech, Sensation intact Psych/Mental Status: Mental status NL, Mood NL MUSCULOSKELETAL: Osteoarthritic changes both hands VITALS VITALS Vital Signs Date Time Temp Pulse Resp B/P Pulse Ox O2 Delivery O2 Flow Rate FiO2 08/02/16 07:22 98.3 61 21 123/75 93 Room Air 98.3 LABS Lab: Laboratory Tests Test 08/01/16 09:30 08/01/16 09:37 08/01/16 09:38 08/01/16 10:00 White Blood Count 8.1x10^3/uL (4.0-11.0) Red Blood Count 4.71x10^6/uL (4.30-5.70) Hemoglobin 14.8g/dL (13.0-17.5) Hematocrit 43.2% (39.0-53.0) Mean Corpuscular Volume 92fL (79-100) Mean Corpuscular Hemoglobin 32pg (25-35) Mean Corpuscular Hemoglobin Concent 34g/dL (31-37) Red Cell Distribution Width 14.0% (11.5-14.5) Platelet Count 168x10^3/uL (140-400) Neutrophils (%) (Auto) 81% (31-73) Lymphocytes (%) (Auto) 11% (24-48) Monocytes (%) (Auto) 6% (0-9) Eosinophils (%) (Auto) 1% (0-3) Basophils (%) (Auto) 1% (0-3) Neutrophils # (Auto) 6.5x10^3uL (1.8-7.7) Lymphocytes # (Auto) 0.9x10^3/uL (1.0-4.8) Monocytes # (Auto) 0.5x10^3/uL (0.0-1.1) Eosinophils # (Auto) 0.1x10^3/uL (0.0-0.7) Basophils # (Auto) 0.1x10^3/uL (0.0-0.2) Prothrombin Time 13.7SEC (11.7-14.0) Prothromb Time International Ratio 1.1 (0.8-1.1) Activated Partial Thromboplast Time 26SEC (24-38) Sodium Level 141mmol/L (136-145) Potassium Level 4.2mmol/L (3.5-5.1) Chloride Level 105mmol/L (98-107) Carbon Dioxide Level 27mmol/L (21-32) Anion Gap 9 (6-14) 20mmol/L (6-14) Blood Urea Nitrogen 26mg/dL (8-26) Creatinine 1.5mg/dL (0.7-1.3) Estimated GFR (Cockcroft-Gault) 44.4 BUN/Creatinine Ratio 17 (6-20) Glucose Level 257mg/dL (70-99) 239mg/dL (70-99) Lactic Acid Level 4.2mmol/L (0.4-2.0) Calcium Level 8.9mg/dL (8.5-10.1) Total Bilirubin 0.8mg/dL (0.2-1.0) Aspartate Amino Transf (AST/SGOT) 18U/L (15-37) Alanine Aminotransferase (ALT/SGPT) 18U/L (16-63) Alkaline Phosphatase 83U/L (46-116) Troponin I Quantitative < 0.017ng/mL (0.000-0.055) UT-Odx-T-Type Natriuretic Peptide 308pg/mL (0-449) Total Protein 6.9g/dL (6.4-8.2) Albumin 3.6g/dL (3.4-5.0) Albumin/Globulin Ratio 1.1 (1.0-1.7) Bedside Troponin I 0.00ng/ml (<0.08) Bedside Hemoglobin 13.6g/dL (14-18) Bedside Hematocrit 40% (37-52) Bedside Sodium 140mmol/L (135-145) Bedside Potassium 4.2mmol/L (3.5-5.0) Bedside Chloride 105mmol/L (98-110) Bedside Total CO2 21mmol/L (23-32) Bedside Blood Urea Nitrogen 26mg/dL (8-26) Bedside Creatinine 1.3mg/dL (0.5-1.4) Bedside Ionized Calcium (Dewayne) 1.05mmol/L (1.13-1.32) Procalcitonin < 0.05ng/mL (0.00-0.10) Test 08/01/16 10:35 08/01/16 11:00 08/01/16 11:08 08/01/16 16:05 Lactic Acid Level 4.1mmol/L (0.4-2.0) 2.2mmol/L (0.4-2.0) Influenza Type A Antigen Negative (NEGATIVE) Influenza Type B Antigen Negative (NEGATIVE) Urine Collection Type U cath Urine Color Yellow Urine Clarity Clear Urine pH 5.5 Urine Specific Stephens 1.020 Urine Protein Negativemg/dL (NEG-TRACE) Urine Glucose (UA) 500mg/dL (NEG) Urine Ketones (Stick) Negativemg/dL (NEG) Urine Blood Negative (NEG) Urine Nitrite Negative (NEG) Urine Bilirubin Negative (NEG) Urine Urobilinogen Dipstick 0.2mg/dL (0.2 mg/dL) Urine Leukocyte Esterase Negative (NEG) Urine RBC 0/HPF (0-2) Urine WBC 0/HPF (0-4) Urine Bacteria 0/HPF (0-FEW) Urine Opiates Screen Neg (NEG) Urine Methadone Screen Neg (NEG) Urine Barbiturates Neg (NEG) Urine Phencyclidine Screen Neg (NEG) Urine Amphetamine/Methamphetamine Neg (NEG) Urine Benzodiazepines Screen Neg (NEG) Urine Cocaine Screen Neg (NEG) Urine Cannabinoids Screen Neg (NEG) Urine Ethyl Alcohol Neg (NEG) Test 08/01/16 17:14 08/01/16 19:40 08/01/16 20:39 08/02/16 01:50 Glucose (Fingerstick) 100mg/dL (70-99) 159mg/dL (70-99) Troponin I Quantitative < 0.017ng/mL (0.000-0.055) < 0.017ng/mL (0.000-0.055) White Blood Count 8.4x10^3/uL (4.0-11.0) Red Blood Count 3.95x10^6/uL (4.30-5.70) Hemoglobin 12.6g/dL (13.0-17.5) Hematocrit 36.4% (39.0-53.0) Mean Corpuscular Volume 92fL (79-100) Mean Corpuscular Hemoglobin 32pg (25-35) Mean Corpuscular Hemoglobin Concent 35g/dL (31-37) Red Cell Distribution Width 14.0% (11.5-14.5) Platelet Count 142x10^3/uL (140-400) Neutrophils (%) (Auto) 77% (31-73) Lymphocytes (%) (Auto) 14% (24-48) Monocytes (%) (Auto) 8% (0-9) Eosinophils (%) (Auto) 1% (0-3) Basophils (%) (Auto) 1% (0-3) Neutrophils # (Auto) 6.4x10^3uL (1.8-7.7) Lymphocytes # (Auto) 1.1x10^3/uL (1.0-4.8) Monocytes # (Auto) 0.6x10^3/uL (0.0-1.1) Eosinophils # (Auto) 0.1x10^3/uL (0.0-0.7) Basophils # (Auto) 0.1x10^3/uL (0.0-0.2) Sodium Level 145mmol/L (136-145) Potassium Level 4.1mmol/L (3.5-5.1) Chloride Level 111mmol/L (98-107) Carbon Dioxide Level 24mmol/L (21-32) Anion Gap 10 (6-14) Blood Urea Nitrogen 23mg/dL (8-26) Creatinine 1.1mg/dL (0.7-1.3) Estimated GFR (Cockcroft-Gault) 63.5 Glucose Level 146mg/dL (70-99) Calcium Level 7.9mg/dL (8.5-10.1) Test 08/02/16 04:04 08/02/16 07:24 Lactic Acid Level 0.9mmol/L (0.4-2.0) Glucose (Fingerstick) 120mg/dL (70-99) ASSESSMENT/PLAN ASSESSMENT/PLAN 1. Presyncope: multifactorial. Possible vasovagal with deglutition complicated by underlying AFIB, dehydration, and acidosis. 2. PAFIB: New? Likely induced by extracardiac conditions. Spontaneous conversion noted after correction of the latter. EKG noted with HR at 56 with LAFB. Currently on SR 60-70s. Will continue with home metoprolol. 3. Anion gap metabolic acidosis: due to lactic acidosis, likely from dehydration and metformin use. 4. Possible GI bleed: has been complaining of black stools. 5. Hypotension: multifactorial as above. Much better overnight after IV hydration. 6. Hx of CAD: "silent ID" in 1999. Last seen field observer >2 yrs ago. CP free and no SOA. Stable. 7. DM2 8. HLP 9. HTN 10. Hx of GERD Plan 1. Continue with IV hydration, hold metformin for now if ok with PCP. 2. Check for orthostasis. 3. TSH, lipid panel, Mg (replace as warranted), Additional recommendation pending TTE result. 4. At his age SSS would be a possibility as well. Plan for outpt [facility] and will note afib burden. Metoprolol for rhythm maintenance. 5. GI consult to defer to PCP. Start on ECASA once cleared by GI. 6. Continue secondary prevention. Pt is to follow up in our office post [facility]. [id number] 4. Will consider for OAC/NOAC pending result of [facility]OT and GI recommendation. 7. Resume BB/ACEi once BP is consistently adequate. Problems: SREEKANTH CONNER MD 08/02/16 1746: CARDIAC CONSULT ALLERGIES ALLERGIES: Coded Allergies: Penicillins (Verified Allergy, Intermediate, Hives, 08/01/16) ASSESSMENT/PLAN ASSESSMENT/PLAN Patient seen and examined. Agree with the nurse practitioner note. 86-year-old male presenting with near syncope. On examination he has no significant cardiovascular abnormalities. Echocardiogram is within normal limits. Medications reviewed and orthostatics are negative. No clear precipitant although arrhythmia is still a possibility. We will consider an outpatient event monitor and follow up in approximately 4-6 weeks. Attempted to call the patient's family but was unable to reach them and we will send him an event monitor through the mail. Problems: RENEE GOSS APRN Aug 02, 2016 09:01 SREEKANTH CONNER MD Aug 02, 2016 17:46
[2016-08-02] MEDS: GLIPIZIDE 5 MG TABLET PO SCH ×2 (09:18→17:16)
[2016-08-02 09:42] LABS: CHOLESTEROL/HDL RATIO 2.6; MAGNESIUM 1.6 mg/dL (1.8-2.4)
[2016-08-02] MEDS ORDERED: MAGNESIUM SULFATE 2GM 50 ML IV ONE (10:30)
--- NOTE | 2016-08-02 10:51 | PDOC ---
PROGRESS NOTES Chief Complaint Chief Complaint light headedness, shaky - near syncope - lactic acidosis - hypotension - h/o [place] - melena History of Present Illness History of Present Illness 86 y/o M sitting up in bed when evaluated this AM. Pt reports feeling relatively well. Denies any return of symptoms. Is no longer feeling light- headed, shaky, or diaphoretic. Pt has been in sinus rhythm per floor monitoring. Pt endorsing having black stools; agreeable to be seen by GI. Vitals Vitals Vital Signs Date Time Temp Pulse Resp B/P Pulse Ox O2 Delivery O2 Flow Rate FiO2 08/02/16 09:18 61 08/02/16 09:18 123/75 08/02/16 07:22 98.3 21 93 Room Air 98.3 Physical Exam General: Alert, Oriented X3 Heart: Regular rate, Normal S1, No murmurs Lungs: Clear Abdomen: Soft, No tenderness Extremities: No clubbing, No cyanosis, Other (bl legs 1+edema) Skin: No significant lesion Labs LABS Laboratory Tests Test 08/01/16 11:00 08/01/16 11:08 08/01/16 16:05 08/01/16 17:14 Influenza Type A Antigen Negative (NEGATIVE) Influenza Type B Antigen Negative (NEGATIVE) Urine Collection Type U cath Urine Color Yellow Urine Clarity Clear Urine pH 5.5 Urine Specific [place] 1.020 Urine Protein Negativemg/dL (NEG-TRACE) Urine Glucose (UA) 500mg/dL (NEG) Urine Ketones (Stick) Negativemg/dL (NEG) Urine Blood Negative (NEG) Urine Nitrite Negative (NEG) Urine Bilirubin Negative (NEG) Urine Urobilinogen Dipstick 0.2mg/dL (0.2 mg/dL) Urine Leukocyte Esterase Negative (NEG) Urine RBC 0/HPF (0-2) Urine WBC 0/HPF (0-4) Urine Bacteria 0/HPF (0-FEW) Urine Opiates Screen Neg (NEG) Urine Methadone Screen Neg (NEG) Urine Barbiturates Neg (NEG) Urine Phencyclidine Screen Neg (NEG) Urine Amphetamine/Methamphetamine Neg (NEG) Urine Benzodiazepines Screen Neg (NEG) Urine Cocaine Screen Neg (NEG) Urine Cannabinoids Screen Neg (NEG) Urine Ethyl Alcohol Neg (NEG) Lactic Acid Level 2.2mmol/L (0.4-2.0) Glucose (Fingerstick) 100mg/dL (70-99) Test 08/01/16 19:40 08/01/16 20:39 08/02/16 01:50 08/02/16 04:04 Troponin I Quantitative < 0.017ng/mL (0.000-0.055) < 0.017ng/mL (0.000-0.055) Glucose (Fingerstick) 159mg/dL (70-99) White Blood Count 8.4x10^3/uL (4.0-11.0) Red Blood Count 3.95x10^6/uL (4.30-5.70) Hemoglobin 12.6g/dL (13.0-17.5) Hematocrit 36.4% (39.0-53.0) Mean Corpuscular Volume 92fL (79-100) Mean Corpuscular Hemoglobin 32pg (25-35) Mean Corpuscular Hemoglobin Concent 35g/dL (31-37) Red Cell Distribution Width 14.0% (11.5-14.5) Platelet Count 142x10^3/uL (140-400) Neutrophils (%) (Auto) 77% (31-73) Lymphocytes (%) (Auto) 14% (24-48) Monocytes (%) (Auto) 8% (0-9) Eosinophils (%) (Auto) 1% (0-3) Basophils (%) (Auto) 1% (0-3) Neutrophils # (Auto) 6.4x10^3uL (1.8-7.7) Lymphocytes # (Auto) 1.1x10^3/uL (1.0-4.8) Monocytes # (Auto) 0.6x10^3/uL (0.0-1.1) Eosinophils # (Auto) 0.1x10^3/uL (0.0-0.7) Basophils # (Auto) 0.1x10^3/uL (0.0-0.2) Sodium Level 145mmol/L (136-145) Potassium Level 4.1mmol/L (3.5-5.1) Chloride Level 111mmol/L (98-107) Carbon Dioxide Level 24mmol/L (21-32) Anion Gap 10 (6-14) Blood Urea Nitrogen 23mg/dL (8-26) Creatinine 1.1mg/dL (0.7-1.3) Estimated GFR (Cockcroft-Gault) 63.5 Glucose Level 146mg/dL (70-99) Calcium Level 7.9mg/dL (8.5-10.1) Lactic Acid Level 0.9mmol/L (0.4-2.0) Magnesium Level 1.6mg/dL (1.8-2.4) Triglycerides Level 74mg/dL (0-150) Cholesterol Level 119mg/dL (0-200) LDL Cholesterol, Calculated 59mg/dL (0-100) VLDL Cholesterol, Calculated 15mg/dL (0-40) HDL Cholesterol 45mg/dL (40-60) Cholesterol/HDL Ratio 2.6 Thyroid Stimulating Hormone (TSH) 2.669uIU/mL (0.358-3.74) Test 08/02/16 07:24 Glucose (Fingerstick) 120mg/dL (70-99) Review of Systems Review of Systems + black stools denies fever, chills denies chest pain, soa, cough Assessment and Plan Assessmemt and Plan ASSESSMENT: light headedness, shaky - near syncope - lactic acidosis, resolved - bradycardia with aflutter with hypotension - h/o [place] - melena PLAN: - consult GI for c/o melena - appreciate cardiology and ID input. - cont empiric vanc/cefepime/doxy for now - negative sepsis workup; procalcitonin lvl nrml, lactic acid now 0.9, wbc 8.5 - hold metformin for now - PT/OT as tolerated - repeat labs Problems: Comment Review of Relevant I have reviewed the following items david (where applicable) has been applied. Labs Laboratory Tests Test 08/01/16 09:30 08/01/16 09:37 08/01/16 09:38 08/01/16 10:00 White Blood Count 8.1x10^3/uL (4.0-11.0) Red Blood Count 4.71x10^6/uL (4.30-5.70) Hemoglobin 14.8g/dL (13.0-17.5) Hematocrit 43.2% (39.0-53.0) Mean Corpuscular Volume 92fL (79-100) Mean Corpuscular Hemoglobin 32pg (25-35) Mean Corpuscular Hemoglobin Concent 34g/dL (31-37) Red Cell Distribution Width 14.0% (11.5-14.5) Platelet Count 168x10^3/uL (140-400) Neutrophils (%) (Auto) 81% (31-73) Lymphocytes (%) (Auto) 11% (24-48) Monocytes (%) (Auto) 6% (0-9) Eosinophils (%) (Auto) 1% (0-3) Basophils (%) (Auto) 1% (0-3) Neutrophils # (Auto) 6.5x10^3uL (1.8-7.7) Lymphocytes # (Auto) 0.9x10^3/uL (1.0-4.8) Monocytes # (Auto) 0.5x10^3/uL (0.0-1.1) Eosinophils # (Auto) 0.1x10^3/uL (0.0-0.7) Basophils # (Auto) 0.1x10^3/uL (0.0-0.2) Prothrombin Time 13.7SEC (11.7-14.0) Prothromb Time International Ratio 1.1 (0.8-1.1) Activated Partial Thromboplast Time 26SEC (24-38) Sodium Level 141mmol/L (136-145) Potassium Level 4.2mmol/L (3.5-5.1) Chloride Level 105mmol/L (98-107) Carbon Dioxide Level 27mmol/L (21-32) Anion Gap 9 (6-14) 20mmol/L (6-14) Blood Urea Nitrogen 26mg/dL (8-26) Creatinine 1.5mg/dL (0.7-1.3) Estimated GFR (Cockcroft-Gault) 44.4 BUN/Creatinine Ratio 17 (6-20) Glucose Level 257mg/dL (70-99) 239mg/dL (70-99) Lactic Acid Level 4.2mmol/L (0.4-2.0) Calcium Level 8.9mg/dL (8.5-10.1) Total Bilirubin 0.8mg/dL (0.2-1.0) Aspartate Amino Transf (AST/SGOT) 18U/L (15-37) Alanine Aminotransferase (ALT/SGPT) 18U/L (16-63) Alkaline Phosphatase 83U/L (46-116) Troponin I Quantitative < 0.017ng/mL (0.000-0.055) HH-Sle-I-Type Natriuretic Peptide 308pg/mL (0-449) Total Protein 6.9g/dL (6.4-8.2) Albumin 3.6g/dL (3.4-5.0) Albumin/Globulin Ratio 1.1 (1.0-1.7) Bedside Troponin I 0.00ng/ml (<0.08) Bedside Hemoglobin 13.6g/dL (14-18) Bedside Hematocrit 40% (37-52) Bedside Sodium 140mmol/L (135-145) Bedside Potassium 4.2mmol/L (3.5-5.0) Bedside Chloride 105mmol/L (98-110) Bedside Total CO2 21mmol/L (23-32) Bedside Blood Urea Nitrogen 26mg/dL (8-26) Bedside Creatinine 1.3mg/dL (0.5-1.4) Bedside Ionized Calcium ([place]) 1.05mmol/L (1.13-1.32) Procalcitonin < 0.05ng/mL (0.00-0.10) Test 08/01/16 10:35 08/01/16 11:00 08/01/16 11:08 08/01/16 16:05 Lactic Acid Level 4.1mmol/L (0.4-2.0) 2.2mmol/L (0.4-2.0) Influenza Type A Antigen Negative (NEGATIVE) Influenza Type B Antigen Negative (NEGATIVE) Urine Collection Type U cath Urine Color Yellow Urine Clarity Clear Urine pH 5.5 Urine Specific [place] 1.020 Urine Protein Negativemg/dL (NEG-TRACE) Urine Glucose (UA) 500mg/dL (NEG) Urine Ketones (Stick) Negativemg/dL (NEG) Urine Blood Negative (NEG) Urine Nitrite Negative (NEG) Urine Bilirubin Negative (NEG) Urine Urobilinogen Dipstick 0.2mg/dL (0.2 mg/dL) Urine Leukocyte Esterase Negative (NEG) Urine RBC 0/HPF (0-2) Urine WBC 0/HPF (0-4) Urine Bacteria 0/HPF (0-FEW) Urine Opiates Screen Neg (NEG) Urine Methadone Screen Neg (NEG) Urine Barbiturates Neg (NEG) Urine Phencyclidine Screen Neg (NEG) Urine Amphetamine/Methamphetamine Neg (NEG) Urine Benzodiazepines Screen Neg (NEG) Urine Cocaine Screen Neg (NEG) Urine Cannabinoids Screen Neg (NEG) Urine Ethyl Alcohol Neg (NEG) Test 08/01/16 17:14 08/01/16 19:40 08/01/16 20:39 08/02/16 01:50 Glucose (Fingerstick) 100mg/dL (70-99) 159mg/dL (70-99) Troponin I Quantitative < 0.017ng/mL (0.000-0.055) < 0.017ng/mL (0.000-0.055) White Blood Count 8.4x10^3/uL (4.0-11.0) Red Blood Count 3.95x10^6/uL (4.30-5.70) Hemoglobin 12.6g/dL (13.0-17.5) Hematocrit 36.4% (39.0-53.0) Mean Corpuscular Volume 92fL (79-100) Mean Corpuscular Hemoglobin 32pg (25-35) Mean Corpuscular Hemoglobin Concent 35g/dL (31-37) Red Cell Distribution Width 14.0% (11.5-14.5) Platelet Count 142x10^3/uL (140-400) Neutrophils (%) (Auto) 77% (31-73) Lymphocytes (%) (Auto) 14% (24-48) Monocytes (%) (Auto) 8% (0-9) Eosinophils (%) (Auto) 1% (0-3) Basophils (%) (Auto) 1% (0-3) Neutrophils # (Auto) 6.4x10^3uL (1.8-7.7) Lymphocytes # (Auto) 1.1x10^3/uL (1.0-4.8) Monocytes # (Auto) 0.6x10^3/uL (0.0-1.1) Eosinophils # (Auto) 0.1x10^3/uL (0.0-0.7) Basophils # (Auto) 0.1x10^3/uL (0.0-0.2) Sodium Level 145mmol/L (136-145) Potassium Level 4.1mmol/L (3.5-5.1) Chloride Level 111mmol/L (98-107) Carbon Dioxide Level 24mmol/L (21-32) Anion Gap 10 (6-14) Blood Urea Nitrogen 23mg/dL (8-26) Creatinine 1.1mg/dL (0.7-1.3) Estimated GFR (Cockcroft-Gault) 63.5 Glucose Level 146mg/dL (70-99) Calcium Level 7.9mg/dL (8.5-10.1) Test 08/02/16 04:04 08/02/16 07:24 Lactic Acid Level 0.9mmol/L (0.4-2.0) Magnesium Level 1.6mg/dL (1.8-2.4) Triglycerides Level 74mg/dL (0-150) Cholesterol Level 119mg/dL (0-200) LDL Cholesterol, Calculated 59mg/dL (0-100) VLDL Cholesterol, Calculated 15mg/dL (0-40) HDL Cholesterol 45mg/dL (40-60) Cholesterol/HDL Ratio 2.6 Thyroid Stimulating Hormone (TSH) 2.669uIU/mL (0.358-3.74) Glucose (Fingerstick) 120mg/dL (70-99) Laboratory Tests Test 08/01/16 11:00 08/01/16 11:08 08/01/16 16:05 08/01/16 17:14 Influenza Type A Antigen Negative (NEGATIVE) Influenza Type B Antigen Negative (NEGATIVE) Urine Collection Type U cath Urine Color Yellow Urine Clarity Clear Urine pH 5.5 Urine Specific [place] 1.020 Urine Protein Negativemg/dL (NEG-TRACE) Urine Glucose (UA) 500mg/dL (NEG) Urine Ketones (Stick) Negativemg/dL (NEG) Urine Blood Negative (NEG) Urine Nitrite Negative (NEG) Urine Bilirubin Negative (NEG) Urine Urobilinogen Dipstick 0.2mg/dL (0.2 mg/dL) Urine Leukocyte Esterase Negative (NEG) Urine RBC 0/HPF (0-2) Urine WBC 0/HPF (0-4) Urine Bacteria 0/HPF (0-FEW) Urine Opiates Screen Neg (NEG) Urine Methadone Screen Neg (NEG) Urine Barbiturates Neg (NEG) Urine Phencyclidine Screen Neg (NEG) Urine Amphetamine/Methamphetamine Neg (NEG) Urine Benzodiazepines Screen Neg (NEG) Urine Cocaine Screen Neg (NEG) Urine Cannabinoids Screen Neg (NEG) Urine Ethyl Alcohol Neg (NEG) Lactic Acid Level 2.2mmol/L (0.4-2.0) Glucose (Fingerstick) 100mg/dL (70-99) Test 08/01/16 19:40 08/01/16 20:39 08/02/16 01:50 08/02/16 04:04 Troponin I Quantitative < 0.017ng/mL (0.000-0.055) < 0.017ng/mL (0.000-0.055) Glucose (Fingerstick) 159mg/dL (70-99) White Blood Count 8.4x10^3/uL (4.0-11.0) Red Blood Count 3.95x10^6/uL (4.30-5.70) Hemoglobin 12.6g/dL (13.0-17.5) Hematocrit 36.4% (39.0-53.0) Mean Corpuscular Volume 92fL (79-100) Mean Corpuscular Hemoglobin 32pg (25-35) Mean Corpuscular Hemoglobin Concent 35g/dL (31-37) Red Cell Distribution Width 14.0% (11.5-14.5) Platelet Count 142x10^3/uL (140-400) Neutrophils (%) (Auto) 77% (31-73) Lymphocytes (%) (Auto) 14% (24-48) Monocytes (%) (Auto) 8% (0-9) Eosinophils (%) (Auto) 1% (0-3) Basophils (%) (Auto) 1% (0-3) Neutrophils # (Auto) 6.4x10^3uL (1.8-7.7) Lymphocytes # (Auto) 1.1x10^3/uL (1.0-4.8) Monocytes # (Auto) 0.6x10^3/uL (0.0-1.1) Eosinophils # (Auto) 0.1x10^3/uL (0.0-0.7) Basophils # (Auto) 0.1x10^3/uL (0.0-0.2) Sodium Level 145mmol/L (136-145) Potassium Level 4.1mmol/L (3.5-5.1) Chloride Level 111mmol/L (98-107) Carbon Dioxide Level 24mmol/L (21-32) Anion Gap 10 (6-14) Blood Urea Nitrogen 23mg/dL (8-26) Creatinine 1.1mg/dL (0.7-1.3) Estimated GFR (Cockcroft-Gault) 63.5 Glucose Level 146mg/dL (70-99) Calcium Level 7.9mg/dL (8.5-10.1) Lactic Acid Level 0.9mmol/L (0.4-2.0) Magnesium Level 1.6mg/dL (1.8-2.4) Triglycerides Level 74mg/dL (0-150) Cholesterol Level 119mg/dL (0-200) LDL Cholesterol, Calculated 59mg/dL (0-100) VLDL Cholesterol, Calculated 15mg/dL (0-40) HDL Cholesterol 45mg/dL (40-60) Cholesterol/HDL Ratio 2.6 Thyroid Stimulating Hormone (TSH) 2.669uIU/mL (0.358-3.74) Test 08/02/16 07:24 Glucose (Fingerstick) 120mg/dL (70-99) Microbiology 08/01/16 Blood Culture - Preliminary, Resulted NO GROWTH AFTER 1 DAY Medications Current Medications Sodium Chloride 500 ml @ 500 mls/hr Q1H IV ; Start 08/01/16 at 09:30; Status Cancel Sodium Chloride 500 ml @ 500 mls/hr 1X ONCE IV Last administered on 10:00; Start 08/01/16 at 10:00; Stop 08/01/16 at 10:59; Status DC Sodium Chloride 500 ml @ 500 mls/hr 1X ONCE IV Last administered on 10:37; Start 08/01/16 at 10:30; Stop 08/01/16 at 11:29; Status DC Sodium Chloride 1,000 ml @ 1,000 mls/hr 1X ONCE IV Last administered on 11:17; Start 08/01/16 at 10:45; Stop 08/01/16 at 11:44; Status DC Cefepime HCl/ Sodium Chloride (Maxipime/Iv Sodium Chloride 0.9% 100ml) 100 ml @ 200 mls/hr 1X ONCE IV Last administered on 08/01/16 12:59; Start 08/01/16 at 13:00; Stop 08/01/16 at 13:29; Status DC Vancomycin HCl 1 each 1 each PRN DAILY PRN MC SEE COMMENTS Last administered on 08/01/16 16:30; Start 08/01/16 at 12:30 Vancomycin HCl 250 ml @ 250 mls/hr 1X ONCE IV ; Start 08/01/16 at 12:30; Stop 08/01/16 at 13:29; Status UNV Vancomycin HCl/ Sodium Chloride (Iv Sodium Chloride 0.9% 500ml Bag) 500 ml @ 250 mls/hr 1X ONCE IV Last administered on 08/01/16 16:37; Start 08/01/16 at 12:45; Stop 08/01/16 at 14:44; Status DC Ondansetron HCl 4 mg 4 mg PRN Q8HRS PRN IV NAUSEA/VOMITING; Start 08/01/16 at 14:00; Stop 08/02/16 at 13:59 Sodium Chloride (Iv Sodium Chloride 0.9% 1000ml Bag) 1,000 ml @ 125 mls/hr Q8H IV Last administered on 08/02/16 09:19; Start 08/01/16 at 13:46; Stop at 13:45 Acetaminophen (Tylenol) 650 mg PRN Q4HRS PRN PO FEVER; Start 08/01/16 at 14:00 ; Stop 08/02/16 at 13:59 Insulin Aspart (Novolog) 0-5 UNITS TIDWMEALS SQ ; Start 08/01/16 at 17:00 Dextrose 12.5 gm PRN Q15MIN PRN IV SEE COMMENTS; Start 08/01/16 at 14:00 Acetaminophen (Tylenol) 650 mg PRN Q6HRS PRN PO MILD PAIN / TEMP; Start at 15:30 Ondansetron HCl (Zofran) 4 mg PRN Q6HRS PRN IV NAUSEA/VOMITING; Start 08/01/16 at 15:30 Enoxaparin Sodium 40 mg 40 mg Q24H SQ Last administered on 08/01/16 16:49; Start 08/01/16 at 15:45 Vancomycin HCl/ Sodium Chloride (Iv Sodium Chloride 0.9% 500ml Bag) 500 ml @ 250 mls/hr Q24H IV ; Start 08/01/16 at 17:00 Vancomycin HCl 1 each 1X ONCE MC ; Start 08/03/16 at 16:30; Stop 08/03/16 at 16 :31 Vitamin D (Vitamin D3) 1,000 unit DAILY PO Last administered on 08/02/16 09:19 ; Start 08/02/16 at 09:00 Lisinopril (Prinivil) 10 mg DAILY PO Last administered on 08/02/16 09:18; Start 08/02/16 at 09:00 Glipizide (Glucotrol) 10 mg BIDBFRMEAL PO Last administered on 08/02/16 09:18 ; Start 08/02/16 at 07:30 Cetirizine HCl (Zyrtec) 10 mg DAILY PO Last administered on 08/02/16 09:17; Start 08/02/16 at 09:00 Metformin HCl (Glucophage) 1,000 mg BIDWMEALS PO ; Start 08/02/16 at 08:00 Metoprolol Tartrate (Lopressor) 25 mg BID PO Last administered on 08/02/16 09: 18; Start 08/02/16 at 09:00 Simvastatin (Zocor) 80 mg QHS PO ; Start 08/02/16 at 21:00 Terazosin HCl (Hytrin) 5 mg QHS PO ; Start 08/02/16 at 21:00 Pantoprazole Sodium (Protonix) 40 mg 1X ONCE PO ; Start 08/01/16 at 23:00; Stop 08/01/16 at 23:01; Status DC Doxycycline Hyclate 100 mg 100 mg BID PO Last administered on 08/02/16 09:19; Start 08/02/16 at 09:00 Magnesium Sulfate/ Dextrose (Magnesium Sulfate PREMIX 2GM) 50 ml @ 25 mls/hr 1X ONCE IV ; Start 08/02/16 at 10:30; Stop 08/02/16 at 12:29 Active Scripts Active Reported Vitamin D3 (Cholecalciferol (Vitamin D3)) 1,000 Unit Tablet 1 Tab PO DAILY Metoprolol Tartrate 25 Mg Tablet 1 Tab PO BID Omeprazole 20 Mg Capsule.dr 1 Cap PO DAILY Glipizide 10 Mg Tablet 2 Tab PO BID Fosinopril Sodium 20 Mg Tablet 0.5 Tab PO BID Terazosin Hcl 5 Mg Capsule 1 Cap PO QHS Simvastatin 80 Mg Tablet 1 Tab PO QHS Loratadine 10 Mg Tablet 1 Tab PO DAILY Metformin Hcl 1,000 Mg Tablet 1 Tab PO BID Vitals/I & O Vital Sign - Last 24 Hours 08/01/16 08/01/16 08/01/16 08/01/16 10:52 11:52 12:52 15:00 Temp 98.1 98.1 Pulse 72 60 75 73 Resp 18 18 18 20 B/P 92/58 99/62 108/66 108/65 Pulse Ox 97 97 97 O2 Delivery Room Air Room Air Room Air Room Air 08/01/16 08/01/16 08/01/16 08/01/16 19:00 19:12 20:05 20:12 Temp 98.4 98.4 Pulse 69 68 Resp 22 B/P 112/56 Pulse Ox 94 O2 Delivery Room Air Room Air Room Air 08/01/16 08/02/16 08/02/16 08/02/16 23:25 03:35 07:22 09:18 Temp 98.4 98.3 98.3 98.4 98.3 98.3 Pulse 75 65 61 61 Resp 21 B/P 112/61 130/72 123/75 123/75 Pulse Ox 94 95 93 O2 Delivery Room Air Room Air Room Air 08/02/16 09:18 Pulse 61 Intake and Output 08/01/16 08/01/16 08/02/16 15:00 23:00 07:00 Intake Total 2100 ml 420 ml 480 ml Output Total 300 ml Balance 1800 ml 420 ml 480 ml YOKO OCONNOR III DO Aug 02, 2016 10:50
--- NOTE | 2016-08-02 11:02 | ACF ---
Admission Forms Criteria HEMODYNAMIC INSTABILITY Clinical Indications for Inpatient Care (Place 'X' for any and all applicable criteria): Ongoing inpatient care may be indicated for hemodynamic instability as indicated by ANY ONE of the following (1)(2)(3)(4)(10): [ ]I) Marked hemodynamic change from baseline (eg, SBP 20 mm Hg below patient's usual pressure) [x ]II) New SBP less than 90 mm Hg or mean arterial pressure less than 70 mm Hg [B](15) [ ]IIII) Symptomatic heart rate greater than 100 or less than 60 beats per minute unresponsive to treatment (eg, analgesia, fluids) [x ]IV) Inadequate perfusion as indicated by ANY ONE of the following: [x ]a) Lactic acidosis, with lactic acid greater than 18 mg/dL (2 mmol /L) or base excess less than -5 mEq/L [ ]b) New abnormal capillary refill (longer than 3 seconds) [ ]c) New altered mental status [ ]d) Reduced urine output [ ]V) Orthostatic vital sign changes [B] that are symptomatic and unresponsive to treatment (eg, fluids) [ ]) IV inotropic or vasopressor medication required(26) Extended stay beyond goal length of stay for primary condition may be needed until ALL of the following are present(1)(2)(3): [ ]a) Heart rate > 60 and < 100 beats per minute or patient is clinically stable at current rate (eg, baseline) [ ]b) SBP >100 mm Hg and <160 mm Hg or patient is clinically stable at current pressure (eg, baseline) [ ]c) DBP greater than 50 mm Hg and less than 100 mm Hg or patient is clinically stable at current pressure (eg, baseline) [ ]d) Urine output greater than 0.5 mL/kg per hour [ ]e) Room air oxygen saturation 90% or greater or at baseline [ ]f) Orthostatic vital sign changes absent, asymptomatic, at baseline, or manageable at lower level of care [ ]g) Medical comorbidities manageable at lower level of care The original [employer] content created by [employer] has been revised. The portions of the content which have been revised are identified through the use of italic text or in bold, and [facility] [employer] has neither reviewed nor approved the modified material. All other unmodified content is copyright [facility]. Please see references footnoted in the original [facility] edition 2016 Admission Criteria Met?: Yes FLASH KAUR Aug 01, 2016 13:14
--- NOTE | 2016-08-02 11:47 | PDOC2 ---
GI CONSULT Reason For Consult: Melena HPI: HPI: 86 y/o male admitted w/ lightheadedness and diaphoresis in the cafeteria. Feeling okay now. Poor historian. Followed by cardiology w/ REMBERTO planned, ID has also seen for lactic acidosis (resolved) and hypotension (improved). Other notes indicate patient has reports "black stools." No BMs or bleeding noted by or reported to RN, and to me, pt denies hematochezia, melena, or dark/black stools. Instead, he says "blocked stools" meaning constipation. Reports BM this morning was normal in color. Often has to strain, does not take anything for this. Recalls previous colonoscopies w/ polyps. Denies other GI symptoms including reflux/heartburn (note home medication list includes omeprazole), dysphagia, abdominal pain, weight loss, change in appetite, or diarrhea. PMH: PMH: HTN, HLD, GERD, OA, allergic rhinitis, BPH, DM, appendectomy, cataract removal, right TKR, right trigger finger release FH: Family History: No pertinent hx Social History: Smoke: No (quit remotely over 45 yrs ago, 5 pk yr) ALCOHOL: none Drugs: None ROS: GEN: +sweats HEENT: Denies blurred vision, sore throat CV: Denies chest pain RESP: Denies shortness of air, cough GI: Per HPI : Denies hematuria, dysuria ENDO: Denies weight changes NEURO: +dizziness MSK: Denies weakness, joint pain/swelling SKIN: Denies jaundice, pruritus VItals: Vitals: Vital Signs Date Time Temp Pulse Resp B/P Pulse Ox O2 Delivery O2 Flow Rate FiO2 08/02/16 09:18 61 08/02/16 09:18 123/75 08/02/16 07:22 98.3 21 93 Room Air 98.3 Labs: Labs: Laboratory Tests Test 08/01/16 16:05 08/01/16 17:14 08/01/16 19:40 08/01/16 20:39 Lactic Acid Level 2.2mmol/L (0.4-2.0) Glucose (Fingerstick) 100mg/dL (70-99) 159mg/dL (70-99) Troponin I Quantitative < 0.017ng/mL (0.000-0.055) Test 08/02/16 01:50 08/02/16 04:04 08/02/16 07:24 White Blood Count 8.4x10^3/uL (4.0-11.0) Red Blood Count 3.95x10^6/uL (4.30-5.70) Hemoglobin 12.6g/dL (13.0-17.5) Hematocrit 36.4% (39.0-53.0) Mean Corpuscular Volume 92fL (79-100) Mean Corpuscular Hemoglobin 32pg (25-35) Mean Corpuscular Hemoglobin Concent 35g/dL (31-37) Red Cell Distribution Width 14.0% (11.5-14.5) Platelet Count 142x10^3/uL (140-400) Neutrophils (%) (Auto) 77% (31-73) Lymphocytes (%) (Auto) 14% (24-48) Monocytes (%) (Auto) 8% (0-9) Eosinophils (%) (Auto) 1% (0-3) Basophils (%) (Auto) 1% (0-3) Neutrophils # (Auto) 6.4x10^3uL (1.8-7.7) Lymphocytes # (Auto) 1.1x10^3/uL (1.0-4.8) Monocytes # (Auto) 0.6x10^3/uL (0.0-1.1) Eosinophils # (Auto) 0.1x10^3/uL (0.0-0.7) Basophils # (Auto) 0.1x10^3/uL (0.0-0.2) Sodium Level 145mmol/L (136-145) Potassium Level 4.1mmol/L (3.5-5.1) Chloride Level 111mmol/L (98-107) Carbon Dioxide Level 24mmol/L (21-32) Anion Gap 10 (6-14) Blood Urea Nitrogen 23mg/dL (8-26) Creatinine 1.1mg/dL (0.7-1.3) Estimated GFR (Cockcroft-Gault) 63.5 Glucose Level 146mg/dL (70-99) Calcium Level 7.9mg/dL (8.5-10.1) Troponin I Quantitative < 0.017ng/mL (0.000-0.055) Lactic Acid Level 0.9mmol/L (0.4-2.0) Magnesium Level 1.6mg/dL (1.8-2.4) Triglycerides Level 74mg/dL (0-150) Cholesterol Level 119mg/dL (0-200) LDL Cholesterol, Calculated 59mg/dL (0-100) VLDL Cholesterol, Calculated 15mg/dL (0-40) HDL Cholesterol 45mg/dL (40-60) Cholesterol/HDL Ratio 2.6 Thyroid Stimulating Hormone (TSH) 2.669uIU/mL (0.358-3.74) Glucose (Fingerstick) 120mg/dL (70-99) Allergies: Coded Allergies: Penicillins (Verified Allergy, Intermediate, Hives, 08/01/16) Medications: Current Medications Medications (Trade) Dose Ordered Sig/Brendon Route PRN Reason Start Time Stop Time Status Last Admin Dose Admin Cefepime HCl/ Sodium Chloride (Maxipime/Iv Sodium Chloride 0.9% 100ml) 100 ml @ 200 mls/hr 1X ONCE IV 08/01/16 13:00 08/01/16 13:29 DC 08/01/16 12:59 Vancomycin HCl 1 each 1 each PRN DAILY PRN MC SEE COMMENTS 08/01/16 12:30 08/01/16 16:30 Vancomycin HCl 2 gm/Sodium Chloride 500 ml @ 250 mls/hr 1X ONCE IV 08/01/16 12:45 08/01/16 14:44 DC 08/01/16 16:37 Sodium Chloride (Iv Sodium Chloride 0.9% 1000ml Bag) 1,000 ml @ 125 mls/hr Q8H IV 08/01/16 13:46 08/02/16 13:45 08/02/16 09:19 Enoxaparin Sodium (Lovenox 40mg Syringe) 40 mg Q24H SQ 08/01/16 15:45 08/01/16 16:49 Vitamin D (Vitamin D3) 1,000 unit DAILY PO 08/02/16 09:00 08/02/16 09:19 Lisinopril (Prinivil) 10 mg DAILY PO 08/02/16 09:00 08/02/16 09:18 Glipizide (Glucotrol) 10 mg BIDBFRMEAL PO 08/02/16 07:30 08/02/16 09:18 Cetirizine HCl (Zyrtec) 10 mg DAILY PO 08/02/16 09:00 08/02/16 09:17 Metoprolol Tartrate (Lopressor) 25 mg BID PO 08/02/16 09:00 08/02/16 09:18 Doxycycline Hyclate (Vibra-Tab) 100 mg BID PO 08/02/16 09:00 08/02/16 09:19 Imaging: Imaging: CXR 08/01/16 IMPRESSION: No acute cardiopulmonary abnormality is detected. PE: GEN: NAD, in WC on way to cardiac center HEENT: Atraumatic, PERRL LUNGS: CTAB HEART: RRR +murm ABD: NABS, S/ND/NT EXTREMITY: BLE edema SKIN: No rashes, no jaundice NEURO/PSYCH: A & O 3 A/P: A/P: Constipation -history of this, untreated, last stool this morning CRC screen, h/o colon polyps ?GERD "Black stool" reported - apparently he was actually indicating "blocked stool" -Hgb 12.6, BUN 23/Cr 1.1 Presyncope -cardiology workup in process Lactic acidosis -resolved -- Will add Miralax and PO PPI. Monitor labs. D/w cardiology - no apparent bleeding at this time. Will follow. BISI CORONADO Aug 02, 2016 11:47
[2016-08-02] MEDS ORDERED: POLYETHYLENE GLYCOL 3350 17 GM PACKET. PO SCH (12:00)
[2016-08-02] MEDS ORDERED: ASPIRIN ENTERIC COATED 81 MG TABLET.DR. PO SCH (12:00)
--- NOTE | 2016-08-02 14:08 | CARD ---
APPROVED REPORT EXAM: Two-dimensional and M-mode echocardiogram with Doppler and color Doppler. Other Information Quality : GoodHR: 60bpm Rhythm : NSR INDICATION Bradycardia 2D DIMENSIONS RVDd2.5 (2.9-3.5cm)Left Atrium(2D)3.2 (1.6-4.0cm) IVSd0.8 (0.7-1.1cm)Aortic Root(2D)2.6 (2.0-3.7cm) LVDd5.2 (3.9-5.9cm)LVOT Diameter2.2 (1.8-2.4cm) LVDs3.1 (2.5-4.0cm)FS (%) 41.1 % SV93.7 ml Aortic Valve AoV Peak Ander.101.6cm/sAoV VTI23.2cm AO Peak GR.4.1mmHgLVOT Peak Ander.78.4cm/s LVOT VTI 17.55cmAO Mean GR.3mmHg FABIO (VMAX)3.90gc9WCS (VTI)3.00cm2 Mitral Valve MV E Hrhwazrl867.9cm/sMV E Peak Gr.70mmHg MV DECEL [id number] A Pvgmwhdb77.1cm/s MV E Mean Gr.2mmHgMV LDF44cm E/A Ratio1.6MVA (PHT)3.66cm2 TDI E/Lateral E'11.5E/Medial E'15.0 Pulmonary Valve PV Peak Wisrdyvs54.6cm/sPV Peak Grad.1mmHg Tricuspid Valve TR P. Yhjbpefd440nt/sTR Peak Gr.21mmHg Pulmonary Vein S1 Ndabdxoc39.2cm/sD2 Gdrdrnky14.3cm/s PVa myttaotx09eqsi LEFT VENTRICLE The left ventricle is normal size. There is normal left ventricular wall thickness. The left ventricu lar systolic function is normal and the ejection fraction is within normal range. The Ejection Fracti on is 60-65%. There is normal LV segmental wall motion. The left ventricular diastolic function and f illing is normal for age. RIGHT VENTRICLE The right ventricle is normal size. There is normal right ventricular wall thickness. The right ventr icular systolic function is normal. ATRIA The left atrium size is normal. The right atrium size is normal. The interatrial septum is intact wit h no evidence for an atrial septal defect or patent foramen ovale as noted on 2-D or Doppler imaging. AORTIC VALVE The aortic valve is mildly thickened. Doppler and Color Flow revealed no significant aortic regurgita tion. There is no significant aortic valvular stenosis. MITRAL VALVE The mitral valve leaflets are thickened. There is no evidence of mitral valve prolapse. There is no m itral valve stenosis. Doppler and Color Flow revealed mild mitral regurgitation. TRICUSPID VALVE The tricuspid valve is normal in structure and function. Doppler and Color Flow revealed trace to mil d tricuspid regurgitation. The pulmonary artery systolic pressure is estimated at 25 mmHg. PULMONIC VALVE The pulmonary valve is normal in structure and function. Doppler and Color Flow revealed trace pulmon ic valvular regurgitation. GREAT VESSELS The aortic root is normal in size. The ascending aorta is normal in size. The pulmonary artery is nor mal. The IVC is normal in size and collapses >50% with inspiration. PERICARDIAL EFFUSION There is no evidence of significant pericardial effusion. Critical Notification Critical Value: No <Conclusion> The left ventricle is normal size. The left ventricular systolic function is normal and the ejection fraction is within normal range. The Ejection Fraction is 60-65%. There is no significant aortic valvular stenosis. Doppler and Color Flow revealed no significant aortic regurgitation. Doppler and Color Flow revealed mild mitral regurgitation. Doppler and Color Flow revealed trace to mild tricuspid regurgitation. The pulmonary artery systolic pressure is estimated at 25 mmHg.
--- NOTE | 2016-08-02 15:38 | EKG ---
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
[2016-08-02] MEDS: ENOXAPARIN 40 MG/0.4 ML DISP.SYRIN. SQ SCH (15:45)
[2016-08-02 16:46] VITALS: BP_SYST 139; BP_SYST 143; BP_SYST 145; BP_DIAS 79; BP_DIAS 84; BP_DIAS 89
[2016-08-02] MEDS: VANCOMYCIN 1.5 GM in IV NORMAL SALINE 500ML BAG 500 ML IV SCH (17:00)
[2016-08-02] MEDS ORDERED: SIMVASTATIN 40 MG TABLET. PO SCH (21:00)
[2016-08-02] MEDS ORDERED: TERAZOSIN 5 MG CAPSULE. PO SCH (21:00)
[2016-08-03] MEDS ORDERED: PANTOPRAZOLE 40 MG TABLET. PO SCH (07:30)
--- NOTE | 2016-08-18 20:05 | DS ---
DATE OF DISCHARGE: 08/02/2016 ADMISSION DIAGNOSIS: Syncope. DISCHARGE DIAGNOSES: Resolving syncope. CONSULTS: Dr. Antonio, Cardiology PROCEDURES: None. HOSPITAL COURSE: The patient is a pleasant middle-aged male who presented with syncopal episode. He was admitted. We checked serial enzymes and serial EKGs. We did cardiac monitoring and consulted Cardiology. His workup was negative. We discharged him to home. DISPOSITION: Home. ACTIVITY: As tolerated. DIET: Low sodium. MEDICATIONS: Please see the MRAD. TOTAL TIME: 31 minutes. YOKO OCONNOR DO DR: ROSANNA/sharon JOB#: [id number] / [id number]
== END 2016-08-02 19:45 | disposition home or self-care (01) | DRG 683 ==
LOC: ER 09:15 → 2 NORTH 12:37
PROVIDERS: ADMIT Internal Medicine; ATTEND Internal Medicine
DX: N17.0 Acute kidney failure with tubular necrosis (principal); I48.92 Unspecified atrial flutter; E87.2 Acidosis; R55 Syncope and collapse; I48.0 Paroxysmal atrial fibrillation; E78.5 Hyperlipidemia, unspecified; I12.9 Hypertensive chronic kidney disease with stage 1 through stage 4 chronic kidney disease, or unspecified chronic kidney disease; I25.10 Atherosclerotic heart disease of native coronary artery without angina pectoris; J30.9 Allergic rhinitis, unspecified; K21.9 Gastro-esophageal reflux disease without esophagitis; K59.00 Constipation, unspecified; Z60.2 Problems related to living alone; E11.22 Type 2 diabetes mellitus with diabetic chronic kidney disease; M19.90 Unspecified osteoarthritis, unspecified site; N18.3 Chronic kidney disease, stage 3 (moderate); Z96.651 Presence of right artificial knee joint; I95.9 Hypotension, unspecified; N40.0 Benign prostatic hyperplasia without lower urinary tract symptoms; Z86.010 Personal history of colon polyps; Z88.0 Allergy status to penicillin; Z90.49 Acquired absence of other specified parts of digestive tract; Z98.49 Cataract extraction status, unspecified eye; E86.0 Dehydration
CPT/HCPCS: 36415; 51701; 71010; 80047; 80048; 80053; 80061; 81001; 82947; 83036; 83605; 83735; 83880; 84145; 84443; 84484; 85027; 85610; 85730; 87040; 87804; 93005; 93306; 96361; 96365; G0481; J0692; J1650; J1815; J3370; J7030; J7040; J7060; 99285-25

== ENCOUNTER 2016-09-23 07:36 | Observation (INO) | payer OTHER ==
[2016-09-23] VITALS (12 sets, daily range): BP systolic 86–139; BP diastolic 56–95
[~2016-09-23] VITALS: Ht 177.8 cm; Wt 88.9 kg
[~2016-09-23 07:36] MED LIST: CHOL10003 PO; FOSI20TA PO; GLIP10TA13 PO; LORA10TA3 PO; METF10002 PO; METO25TA4 PO; OMEP20CA9 PO; SIMV80TA3 PO; TERA5CAP3 PO
[2016-09-23] MEDS ORDERED: BACITRACIN 50,000 UNIT in IV NORMAL SALINE 250ML 250 ML IRR ONE ×2 (08:15→16:00)
[2016-09-23] MEDS ORDERED: VANCOMYCIN 1 GM in IV NORMAL SALINE 250ML 250 ML IV ONE ×2 (08:15→23:00)
[2016-09-23] MEDS ORDERED: LIDOCAINE 2%/EPI 1:100,000 20 ML VIAL. ONE ×2 (08:23→15:27)
--- NOTE | 2016-09-23 08:36 | EKG ---
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
[2016-09-23 08:37] LABS: HEMATOCRIT 43.4 % (39.0-53.0); RED BLOOD COUNT 4.74 x10^6/uL (4.30-5.70); RED CELL DISTRIBUTION WIDTH 13.6 % (11.5-14.5); WHITE BLOOD COUNT 8.9 x10^3/uL (4.0-11.0)
[2016-09-23 08:46] LABS: CREATININE 1.2 mg/dL (0.7-1.3); GFR 57.4; POTASSIUM 4.1 mmol/L (3.5-5.1)
[2016-09-23 08:52] LABS: PROTHROMBIN TIME PATIENT 12.9 SEC (11.7-14.0)
[2016-09-23] MEDS ORDERED: MIDAZOLAM HCL/PF 5 MG/5 ML VIAL ONE (09:58)
[2016-09-23] MEDS ORDERED: FENTANYL PF 100 MCG/2 ML VIAL. ONE ×2 (09:58→10:14)
[2016-09-23] MEDS ORDERED: LIDOCAINE 2%/EPI 1:100,000 20 ML VIAL. IJ ONE ×2 (10:00→16:00)
[2016-09-23] MEDS ORDERED: FENTANYL PF 100 MCG/2 ML VIAL. IV ONE ×2 (10:00→16:00)
[2016-09-23] MEDS ORDERED: MIDAZOLAM HCL/PF 5 MG/5 ML VIAL IV ONE (10:00)
[2016-09-23] MEDS ORDERED: IOHEXOL 300 MG/ML 100ML VIAL. ONE (10:15)
--- NOTE | 2016-09-23 11:38 | CARD ---
APPROVED REPORT HISTORY The Patient is a 86 year-old male with a history of near syncope and pauses > 3.5 seconds PROCEDURES Insertion Dual Chamber Pacemaker 30 mL of 2% lidocaine was infiltrated into the skin and subcutaneous tissues for local anesthesia. A n incision was made over the left infraclavicular fossa and using blunt dissection and cautery a pock et was created. Venous access was obtained in the left subclavian vein and two 6F sheaths were inser mike. Subsequently, a [employer] Arik bipolar active fixation right ventricular lead model 2088TC/52, serial numbe r [id number] was advanced under fluoroscopic guidance and the tip was positioned in the right ventric ular apex. Following this, a [employer] Arik bipolar active fixation right atrial lead model 2088TC/46 seri al number [id number] was placed in the right atrial appendage under fluoroscopy guidance. The leads w ere secured into place and were attached to a [employer] Arik dual-chamber permanent pacemaker generator mod el [id number], serial number [id number]. This was placed in the pocket that was subsequently closed in 3 layers. Hemostasis was secured. At the end of procedure, the right ventricular lead showed sensing amplitude of 13.9mV, impedance of 912 ohms and a threshold of 0.5volts. The right atrial lead showed a sensing amplitude of 3.7 milliv olts, impedance of 512 volts and threshold unable to be tested due to afib. Patient tolerated the pro cedure well. There were no immediate complications. CONCLUSION Successful insertion of a dual chamber [employer] Arik pacemaker for near syncope and pauses of greater than 3.5 seconds.
[2016-09-23] MEDS ORDERED: LORA10TA3 PO (12:00)
[2016-09-23] MEDS ORDERED: NO ANTICOAGULANT THERAPY. MC PRN (13:15)
[2016-09-23] MEDS ORDERED: OXYCODONE/APAP 5/325 TABLET. PO PRN (13:15)
[2016-09-23] MEDS ORDERED: ONDANSETRON PF 4 MG/2 ML VIAL. IV PRN (13:15)
--- NOTE | 2016-09-23 13:29 | RAD ---
Portable chest, 09/23/2016: History: Post pacemaker insertion Comparison is made to a study from 08/01/2016. A left-sided transvenous pacemaker has been inserted with one lead extending into the right ventricle. The tip of the other lead overlies the inferior aspect of the right atrium near the level of the tricuspid valve. The heart is probably at the upper limits of normal in size. There is tortuosity and calcific plaquing of the thoracic aorta. The pulmonary vascularity is normal. No pulmonary infiltrates are seen. There is no evidence of pneumothorax or pleural fluid. IMPRESSION: 1. Interval insertion of a left-sided transvenous pacing device. 2. No other significant interval change.
[2016-09-23] MEDS ORDERED: CETIRIZINE HCL 10 MG TABLET PO PRN (14:00)
[2016-09-23] MEDS: METOPROLOL TART IMMED RELEASE 25 MG TABLET PO SCH ×2 (15:24→21:23)
[2016-09-23] MEDS ORDERED: MIDAZOLAM HCL 2 MG/2 ML VIAL. IV ONE (16:00)
[2016-09-23] MEDS ORDERED: MIDAZOLAM HCL 2 MG/2 ML VIAL. ONE (16:01)
--- NOTE | 2016-09-23 17:48 | CARD ---
APPROVED REPORT HISTORY The Patient is a 86 year-old male with a history of pacemaker implantation. PROCEDURES Post-procedure CXR suggestive but not confirmatory of right atrial lead dislodgement. Therefore, bonifacio ent brought to supervisor laboratory animal facility. Fluoro images demonstrated normal lead placement without evidence of dislodg ement. Repeat diagnostics revealed stable thresholds and impedences. Patient had sterile dressing rep laced and transferred back to floor. INDICATIONS Abnormal cxr
[2016-09-23] MEDS: GLIPIZIDE 5 MG TABLET PO SCH (17:51)
[2016-09-23] MEDS: METFORMIN 1,000 MG TABLET PO SCH (17:51)
[2016-09-23] MEDS ORDERED: TERAZOSIN 5 MG CAPSULE. PO SCH (21:00)
[2016-09-23] MEDS ORDERED: SIMVASTATIN 40 MG TABLET. PO SCH (21:00)
[2016-09-23] MEDS: LISINOPRIL 10 MG TABLET PO SCH (21:24)
[2016-09-24 03:00] VITALS: BP 95/67
[2016-09-24] MEDS: GLIPIZIDE 5 MG TABLET PO SCH (06:43)
[2016-09-24 07:00] VITALS: BP 93/58
[2016-09-24] MEDS ORDERED: PANTOPRAZOLE 40 MG TABLET. PO SCH (07:30)
--- NOTE | 2016-09-24 09:11 | RAD ---
Examination: 2 view of the chest History: History of one day post pacemaker placement Comparison: 09/23/2016 Findings: Left-sided cardiac pacemaker reasons unchanged. The cardiomediastinal silhouette grossly appears unremarkable. There is no acute infiltrate or visualized pneumothorax identified. Impression: No acute cardiopulmonary findings.
[2016-09-24] MEDS: METFORMIN 1,000 MG TABLET PO SCH (09:46)
[2016-09-24] MEDS: METOPROLOL TART IMMED RELEASE 25 MG TABLET PO SCH (10:40)
--- NOTE | 2016-09-24 10:41 | PDOC3 ---
Discharge Summary Visit Information Date of Admission: Sep 23, 2016 Date of Discharge: Sep 24, 2016 Admitting Diagnosis Comment: bradycardia with > 3.5 second pauses hypertension DM, II seasonal allergies Final Diagnosis bradycardia with > 3.5 second pauses hypertension DM, II seasonal allergies Brief Hospital Course Allergies Allergies Coded Allergies Type Severity Reaction Last Updated Verified Penicillins Allergy Intermediate Hives 08/01/16 Yes Vital Signs Vital Signs Date Time Temp Pulse Resp B/P Pulse Ox O2 Delivery O2 Flow Rate FiO2 09/24/16 07:00 98.4 63 18 93/58 97 Nasal Cannula 2.0 98.4 Lab Results Laboratory Tests Test 09/23/16 08:25 09/23/16 11:44 White Blood Count 8.9x10^3/uL (4.0-11.0) Red Blood Count 4.74x10^6/uL (4.30-5.70) Hemoglobin 15.0g/dL (13.0-17.5) Hematocrit 43.4% (39.0-53.0) Mean Corpuscular Volume 92fL (79-100) Mean Corpuscular Hemoglobin 32pg (25-35) Mean Corpuscular Hemoglobin Concent 35g/dL (31-37) Red Cell Distribution Width 13.6% (11.5-14.5) Platelet Count 161x10^3/uL (140-400) Prothrombin Time 12.9SEC (11.7-14.0) Prothromb Time International Ratio 1.0 (0.8-1.1) Activated Partial Thromboplast Time 29SEC (24-38) Sodium Level 141mmol/L (136-145) Potassium Level 4.1mmol/L (3.5-5.1) Chloride Level 103mmol/L (98-107) Carbon Dioxide Level 28mmol/L (21-32) Anion Gap 10 (6-14) Blood Urea Nitrogen 24mg/dL (8-26) Creatinine 1.2mg/dL (0.7-1.3) Estimated GFR (Cockcroft-Gault) 57.4 Glucose Level 252mg/dL (70-99) Calcium Level 9.0mg/dL (8.5-10.1) Glucose (Fingerstick) 235mg/dL (70-99) Laboratory Tests Test 09/23/16 11:44 Glucose (Fingerstick) 235mg/dL (70-99) Brief Hospital Course Mr. Chen is a 86 old male with a prior episode syncope. Outpatient MCOT monitoring demonstrated SB as well as pauses of > 3.5 seconds in duration. PPM implantation was advised with patient agreeable. Underwent placement of dual chamber St[employer] Arik's PPM on 09/23/2016. Post -op CXR with possible lead dislodgement of the RA lead and returned to laboratory administrative director for possible lead revision. Fluoroscopy in the laboratory administrative director did not confirm the lead dislodgement and demonstrated appropriate position of the RA lead. Interrogation on 2016 demonstrated appropriate function. [employer] home monitoring kit delivered for discharge. CXR this a.m. without pneumothorax. Intermittent pacing on tele overnight. Left pectoral wound site C/D/I with steri-strips in place. Mild erythema caudal to incision. No wound separation, edema or ecchymosis. Discharged with printed wound/PPM care instructions. Pulm - CTA bilaterally; CV RRR; Ext - no edema. Discharge Information Condition at Discharge: Stable Follow Up: Weeks (1 week for wound check; 3 months of PPM interrogation; [address] topete) Disposition/Orders: D/C to Home Scheduled Cholecalciferol (Vitamin D3) (Vitamin D3) 1 TAB PO DAILY (Reported) Fosinopril Sodium (Fosinopril Sodium) 0.5 TAB PO BID (Reported) Glipizide (Glipizide) 2 TAB PO BID (Reported) Metformin Hcl (Metformin Hcl) 1 TAB PO BID (Reported) Metoprolol Tartrate (Metoprolol Tartrate) 1 TAB PO BID (Reported) Omeprazole (Omeprazole) 1 CAP PO DAILY (Reported) Simvastatin (Simvastatin) 1 TAB PO QHS (Reported) Terazosin Hcl (Terazosin Hcl) 1 CAP PO QHS (Reported) Scheduled PRN Loratadine (Loratadine) 1 TAB PO DAILY PRN PRN ALLERGIES (Reported) Discontinued Medications Loratadine (Loratadine) 1 TAB PO DAILY (Reported) Patient Instructions Patient Instructions Must know & what to expect after device implant: 1. Your surgical dressing should be removed prior to discharge from the hospital, but allow the steri- strips to fall off naturally. 2. Activity restrictions: DO NOT raise arm above shoulder level, lift anything heavier than a gallon of milk, and no push or pull motions such as vacuuming/lawn mowing, no swinging motions (golf), etc for 4 weeks. 3. It is OK to use a cell phone or other electronic devices just be sure you do not store it in a breast pocket on the side where the device was placed. 4. Device will be interrogated prior to your discharge from the hospital and then every 3 months for defibrillators and every 6 months for pacemakers. You may be asked to have your device checked remotely from home as well, but this will depend on your particular physicians preference. 5. You may remove the arm immobilizer the day after device placement. Wear the arm immobilizer/splint at night (during sleep times) for 2 week to prevent unintended arm movement that can cause lead dislodgement. 6. Do not drive for one week as the task of driving may lead to unintended arm motion that may cause lead dislodgement. The seatbelt will also rub against the incision site & cause irritation. 7. It is our recommendation that you utilize Tylenol at home for pain control. You need to call our office if you are having uncontrollable pain at the incision site. 8. Keep your incision clean and dry. It is OK to shower. DO NOT submerge in bath, pool, or hot tub, until cleared by your doctor, as this could lead to increase risk of infection.. It is OK to use regular soap just do not scrub the incision site. Water spray from shower should not directly hit the incision. Be sure to blot dry not rub. 9. Inspect your incision daily. If you notice any increased redness, swelling , or drainage, or if you start running a fever, call the office immediately. The number is [phone]. 10. For women, if you need to protect against irritation from the bra straps, you can place a piece of gauze over the incision site for cushion. Please be sure to tape it loosely to allow air to the site & remove the gauze when you remove the bra. 11. Be sure to carry your device identification information card in your wallet/purse at all times. 12. It is OK to go through security at the airport with your device, but be sure to let the TSA know prior to proceeding as the security settings change depending on varying factors. Please do whatever is requested by security at that time. 13. Some of the newer devices may be MRI compatible but, currently, the use of these devices is not widespread, so you likely will not be able to have an MRI. Please clarify this with your physician. Call the office at [phone] for any questions or concerns. AUSTIN TAMAYO APRN Sep 24, 2016 10:41
[2016-09-24 11:00] VITALS: BP 94/53
[2016-09-24 12:15] VITALS: BP 105/62
[2016-09-24] MEDS: LISINOPRIL 10 MG TABLET PO SCH (12:15)
== END 2016-09-24 13:00 | disposition home or self-care (01) ==
LOC: CCL 07:36 → 2 NORTH 09:20
PROVIDERS: ADMIT Internal Medicine Cardiovascular Disease; ATTEND Internal Medicine Cardiovascular Disease
DX: R00.1 Bradycardia, unspecified (principal); R55 Syncope and collapse; I10 Essential (primary) hypertension; E11.9 Type 2 diabetes mellitus without complications
CPT/HCPCS: 33208; 36415; 71010; 71020; 76000; 80048; 82947; 85027; 85610; 85730; 93005; 96365; 96366; 96368; 96375; C1785; C1892; C1898; G0378; G0379; J2250; J3010; J3370; J3490; J7050; J7030

== ENCOUNTER → 2017-01-17 | Outpatient (CLI) | payer OTHER ==
[~2017-01-17] MED LIST changes: +METF-620 PO; -METF10002 PO; +REGADENOSON 0.4 MG/5 ML DISP.SYRIN. IV ONE
--- NOTE | 2017-01-18 16:40 | RAD ---
APPROVED REPORT Test Type: Pharmacological Stress Nurse/Tech: Blanca Covarrubias R.N. Test Indications: PAF, arrythmia Cardiac History: High cholesterol, [place] 4 yrs ago, pacemaker Medications: See Electronic Medical Record Medical History: See Electronic Medical Record Resting ECG: A. fib, with intermittent paced beats Resting Heart Rate: 70 bpm Resting Blood Pressure: 134/78mmHg Pretest Chest Pain: No chest pain Nurse/Tech Notes S1S2, lungs souns clear Consent: The procedure was explained to the patient in lay terms. Informed consent was witnessed. Placido eout was entered into [employer]. History and Stress Test performed by Blanca Covarrubias R.N. Pharm. Details Pharmacologic stress testing was performed using 0.4mg per 5ml of regadenoson given intravenously ove r 7-10 seconds. Stress Symptoms No chest pain or symptoms. POST EXERCISE Reason for Termination: Infusion complete Max HR: 113 bpm Max Blood Pressure: 154/78mmHg Blood Pressure response to exercise: Normal blood pressure response during stress. Chest Pain: No. Arrhythmia: No. ST Change: No. INTERPRETATION Stress EKG Conclusion: No evidence of stress induced EKG changes. Imaging Protocol IMAGE PROTOCOL: Rest Tc-99m/stress Tc-99m 1 day Rest: Stress: Viability: Radiopharm.Tc99m SheuwojejDa62v Sestamibi Dose11.7mCi 32mCi Duration 15min. 10min. Img Date 01/17/2017 01/17/2017 Inj-Img Ponp95ltp. 75min. Rest Admin Site:IV - Right AntecubitalAdministrator:ESTRADA Pike Stress Admin Site: IV - Right AntecubitalAdministrator: TORRES Sim, ARRT (R)(N) STRESS DATA End Diast. Vol.61.0mlAv. Heart Rate76.0bpm End Syst. Vol.18.0mlCO Index BSA3.3L/min Myocardial Ogey739.0gEject. Rvvnijad49.0% Stress Rates Pk. Fill Rate3.37EDV/secLVtime Pk. Fill 230.20msec Pk. Empty Rate4.59ESV/secLVtime Pk. Mcqzs693.23msec 07/13 Pk. Fill1.55EDV/sec Stress Scores Regional WT1.00Summed WT12.00 Regional WM0.00Summed WM2.00 LV Perfusion There is a small apical reversible perfusion defect suggestive of impaired perfusion reserve without ischemia or prior infarct. There is also transient ischemic dilation noted, suggestive of balanced is chemia. Wall Motion Normal wall motion. EF 70%. LV Perf. Quant 17 Seg. SSS5.00 17 Seg. SRS4.00 17 Seg. SDS3.00 Stress Defect Extent (% LAD)4.40Rest Defect Extent (% LAD)0.00Rev. Defect Extent (% LAD)4.40 Stress Defect Extent (% LCX) 21.30Rest Defect Extent (% LCX)26.30Rev. Defect Extent (% LCX)0.00 Stress Defect Extent (% RCA)0.00Rest Defect Extent (% RCA)0.00Rev. Defect Extent (% RCA)0.00 Stress Defect Extent (% HEATHER)9.60Rest Defect Extent (% HEATHER)5.20Rev. Defect Extent (% HEATHER)3.50 Other Information Quality:Good Risk Assessment: Moderate-High Risk Conclusion 1. No evidence of stress induced EKG changes. 2. Apical reversible perfusion defect as noted above. 3. 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 4. Normal EF at > 70% 5. Moderate to high risk study.
== END | disposition home or self-care (01) ==
LOC: NM 07:23
PROVIDERS: ATTEND Internal Medicine Cardiovascular Disease
DX: I48.0 Paroxysmal atrial fibrillation (principal)
CPT/HCPCS: 78452; 93017; 96374; 96375; 96376; A9500; J2785

== ENCOUNTER 2017-08-03 10:28 | Emergency (ER) | payer OTHER ==
[2017-08-03 11:19] LABS: ADD MAN DIFF? NO
[2017-08-03 11:32] LABS: ANION GAP 12 (6-14); BLOOD UREA NITROGEN 27 mg/dL (8-26); BUN/CREATININE RATIO 21 (6-20); CALCIUM 8.7 mg/dL (8.5-10.1); CARBON DIOXIDE 27 mmol/L (21-32); CHLORIDE 101 mmol/L (98-107); CREATININE 1.3 mg/dL (0.7-1.3); GFR 52.2; GLUCOSE 354 mg/dL (70-99); POTASSIUM 4.2 mmol/L (3.5-5.1); SODIUM 140 mmol/L (136-145)
[2017-08-03 11:34] LABS: BASO % 1 % (0-3); EOS # 0.1 x10^3/uL (0.0-0.7); EOS % 1 % (0-3); HEMOGLOBIN 15.1 g/dL (13.0-17.5); LYMPH # 0.8 x10^3/uL (1.0-4.8); LYMPH % 11 % (24-48); MEAN CORPUSCULAR HEMOGLOBIN 32 pg (25-35); MEAN CORPUSCULAR HGB CONC 35 g/dL (31-37); MEAN CORPUSCULAR VOLUME 92 fL (79-100); MONO # 0.5 x10^3/uL (0.0-1.1); MONO % 7 % (0-9); NEUT # 5.8 x10^3uL (1.8-7.7); NEUT % 81 % (31-73); PLATELET COUNT 161 x10^3/uL (140-400); RED BLOOD COUNT 4.67 x10^6/uL (4.30-5.70); RED CELL DISTRIBUTION WIDTH 13.2 % (11.5-14.5); WHITE BLOOD COUNT 7.2 x10^3/uL (4.0-11.0)
[2017-08-03 11:36] LABS: BILIRUBIN,URINE NEGATIVE (NEG); CLARITY,URINE CLEAR; COLOR,URINE YELLOW; GLUCOSE,URINE >=1000 mg/dL (NEG); NITRITE,URINE NEGATIVE (NEG); PH,URINE 6.5; PROTEIN,URINE NEGATIVE (NEG-TRACE); UROBILINOGEN,URINE 0.2 mg/dL (0.2 mg/dL)
[2017-08-03 11:39] LABS: ALBUMIN 3.7 g/dL (3.4-5.0); ALBUMIN/GLOBULIN RATIO 1.1 (1.0-1.7); ALK PHOS 93 U/L (46-116); ALT (SGPT) 21 U/L (16-63); AST (SGOT) 10 U/L (15-37); TOTAL BILIRUBIN 0.6 mg/dL (0.2-1.0)
[2017-08-03 12:14] LABS: BACTERIA,URINE FEW /HPF (0-FEW); RBC,URINE RARE /HPF (0-2); WBC,URINE RARE /HPF (0-4)
[2017-08-03 12:15] LABS: SQUAMOUS EPITHELIAL CELL,UR OCC /LPF
== END 2017-08-03 12:55 | disposition home or self-care (01) ==
LOC: ER 10:28
DX: R41.82 Altered mental status, unspecified (principal); E11.65 Type 2 diabetes mellitus with hyperglycemia; I48.91 Unspecified atrial fibrillation; I25.10 Atherosclerotic heart disease of native coronary artery without angina pectoris; Z88.0 Allergy status to penicillin
CPT/HCPCS: 36415; 70450; 71045; 80053; 81001; 85025; 93005; 99285-25

== ENCOUNTER 2018-02-08 22:50 | Inpatient (IN) | payer OTHER, MEDICARE ==
[2018-02-08] MEDS: IV NORMAL SALINE 1000ML BAG 1,000 ML IV (23:10)
[2018-02-08 23:19] LABS: BASO # 0.1 x10^3/uL (0.0-0.2); BASO % 1 % (0-3); EOS % 0 % (0-3); HEMATOCRIT 41.5 % (39.0-53.0); HEMOGLOBIN 14.6 g/dL (13.0-17.5); LYMPH # 0.6 x10^3/uL (1.0-4.8); LYMPH % 4 % (24-48); MEAN CORPUSCULAR HEMOGLOBIN 33 pg (25-35); MEAN CORPUSCULAR HGB CONC 35 g/dL (31-37); MEAN CORPUSCULAR VOLUME 92 fL (79-100); MONO # 1.1 x10^3/uL (0.0-1.1); MONO % 8 % (0-9); NEUT % 88 % (31-73); PLATELET COUNT 171 x10^3/uL (140-400); RED BLOOD COUNT 4.51 x10^6/uL (4.30-5.70); RED CELL DISTRIBUTION WIDTH 13.5 % (11.5-14.5); WHITE BLOOD COUNT 13.7 x10^3/uL (4.0-11.0)
[2018-02-08 23:20] LABS: ADD MAN DIFF? YES
[2018-02-08 23:28] LABS: INR 1.1 (0.8-1.1); PARTIAL THROMBOPLASTIN TIME 26 SEC (24-38)
[2018-02-08 23:35] LABS: % BANDS 1 % (0-9); % BASOS 1 % (0-3); % LYMPHS 4 % (24-48); % MONOS 5 % (0-10); % SEGS 89 % (35-66); PLT ESTIMATE ADEQUATE (ADEQUATE)
[2018-02-08 23:38] LABS: ANION GAP 14 (6-14); BLOOD UREA NITROGEN 31 mg/dL (8-26); BUN/CREATININE RATIO 16 (6-20); CALCIUM 9.1 mg/dL (8.5-10.1); CARBON DIOXIDE 23 mmol/L (21-32); CHLORIDE 103 mmol/L (98-107); CREATININE 1.9 mg/dL (0.7-1.3); GFR 33.7; GLUCOSE 330 mg/dL (70-99); SODIUM 140 mmol/L (136-145)
[2018-02-08 23:39] LABS: TROPONINI < 0.017 ng/mL (0.000-0.055)
[2018-02-08 23:42] LABS: ALBUMIN 3.8 g/dL (3.4-5.0); ALBUMIN/GLOBULIN RATIO 1.2 (1.0-1.7); ALK PHOS 93 U/L (46-116); ALT (SGPT) 17 U/L (16-63); AST (SGOT) 10 U/L (15-37); MAGNESIUM 1.9 mg/dL (1.8-2.4); TOTAL BILIRUBIN 0.8 mg/dL (0.2-1.0); TOTAL PROTEIN 7.1 g/dL (6.4-8.2)
[2018-02-08 23:44] LABS: CKMB INDEX 0.9 % (0-4); CKMB MASS 1.4 ng/mL (0.0-3.6); CREATINE KINASE 148 U/L (39-308)
[2018-02-09 00:51] LABS: BILIRUBIN,URINE SMALL (NEG); CLARITY,URINE CLEAR; COLOR,URINE YELLOW; GLUCOSE,URINE >=1000 mg/dL (NEG); PROTEIN,URINE NEGATIVE (NEG-TRACE)
[2018-02-09 00:52] LABS: AMORPHOUS SEDIMENT,UR PRESENT /HPF; BACTERIA,URINE 0 /HPF (0-FEW); HYALINE CASTS, URINE MODERATE /HPF; NITRITE,URINE NEGATIVE (NEG); RBC,URINE 0 /HPF (0-2); SQUAMOUS EPITHELIAL CELL,UR OCC /LPF; WBC,URINE RARE /HPF (0-4)
[2018-02-09] MEDS ORDERED: CETIRIZINE HCL 10 MG TABLET. PO (03:45)
[2018-02-09] MEDS ORDERED: DEXTROSE 50% 25 GM / 50ML DISP.SYRIN. IV ×2 (04:00→09:45)
[2018-02-09] MEDS ORDERED: INSULIN LISPRO 300 UNITS/3 ML INSULN.PEN. SQ (08:00)
[2018-02-09 09:13] LABS: POC GLUCOSE 161 mg/dL (70-99)
[2018-02-09] MEDS: PANTOPRAZOLE 40 MG TABLET.DR. PO (09:26)
[2018-02-09] MEDS: ASPIRIN CHEWABLE 81 MG TABLET. PO (09:27)
[2018-02-09] MEDS: METOPROLOL TART IMMED RELEASE 25 MG TABLET. PO ×2 (09:27→20:56)
[2018-02-09] MEDS: LISINOPRIL 10 MG TABLET PO ×2 (09:28→20:56)
[2018-02-09] MEDS: glipiZIDE 5 MG TABLET PO ×2 (09:29→17:52)
[2018-02-09] MEDS: CLOPIDOGREL BISULFATE 75 MG TABLET PO (09:30)
[2018-02-09] MEDS: CHOLECALCIFEROL (VITAMIN D3) 1,000 UNIT TABLET PO (09:34)
[2018-02-09] MEDS ORDERED: ACETAMINOPHEN 500 MG TABLET PO (09:45)
[2018-02-09] MEDS ORDERED: ONDANSETRON PF 4 MG/2 ML VIAL. IV (09:45)
[2018-02-09] MEDS ORDERED: ONDANSETRON ODT 4 MG TAB.RAPDIS. PO (09:45)
[2018-02-09] MEDS: INSULIN LISPRO 300 UNITS/3 ML INSULN.PEN. SQ ×2 (10:00→17:00)
[2018-02-09] MEDS: IV NORMAL SALINE 1000ML BAG 1,000 ML IV ×2 (11:12→20:59)
[2018-02-09 11:31] LABS: ANION GAP 9 (6-14); BLOOD UREA NITROGEN 28 mg/dL (8-26); CALCIUM 8.9 mg/dL (8.5-10.1); CARBON DIOXIDE 26 mmol/L (21-32); CHLORIDE 104 mmol/L (98-107); CREATININE 1.3 mg/dL (0.7-1.3); GFR 52.2; GLUCOSE 226 mg/dL (70-99); POTASSIUM 3.8 mmol/L (3.5-5.1); SODIUM 139 mmol/L (136-145)
[2018-02-09 17:30] LABS: POC GLUCOSE 90 mg/dL (70-99)
[2018-02-09] MEDS: SIMVASTATIN 40 MG TABLET. PO (20:56)
[2018-02-09] MEDS: TERAZOSIN 5 MG CAPSULE. PO (20:56)
[2018-02-09 21:13] LABS: POC GLUCOSE 142 mg/dL (70-99)
[2018-02-09 21:17] LABS: POC GLUCOSE 140 mg/dL (70-99)
[2018-02-09 23:12] LABS: MRSA BY PCR Negative (Negative)
[2018-02-10 02:19] LABS: HEMOGLOBIN A1C 7.7 % (4.8-5.6)
[2018-02-10] MEDS: IV NORMAL SALINE 1000ML BAG 1,000 ML IV ×2 (06:36→16:14)
[2018-02-10] MEDS: INSULIN LISPRO 300 UNITS/3 ML INSULN.PEN. SQ ×3 (08:00→17:00)
[2018-02-10 08:14] LABS: POC GLUCOSE 125 mg/dL (70-99)
[2018-02-10] MEDS: glipiZIDE 5 MG TABLET PO ×2 (08:15→17:50)
[2018-02-10] MEDS: PANTOPRAZOLE 40 MG TABLET.DR. PO (08:15)
[2018-02-10] MEDS: ASPIRIN CHEWABLE 81 MG TABLET. PO (08:15)
[2018-02-10] MEDS: CHOLECALCIFEROL (VITAMIN D3) 1,000 UNIT TABLET PO (08:15)
[2018-02-10] MEDS: CLOPIDOGREL BISULFATE 75 MG TABLET PO (08:15)
[2018-02-10] MEDS: METOPROLOL TART IMMED RELEASE 25 MG TABLET. PO ×2 (08:18→20:07)
[2018-02-10] MEDS: LISINOPRIL 10 MG TABLET PO ×2 (08:19→20:06)
[2018-02-10 11:08] LABS: POC GLUCOSE 166 mg/dL (70-99)
[2018-02-10] MEDS: HYDROcodone/APAP 5/325MG 1 TAB TABLET PO (12:04)
[2018-02-10 17:25] LABS: POC GLUCOSE 93 mg/dL (70-99)
[2018-02-10] MEDS: TERAZOSIN 5 MG CAPSULE. PO (20:05)
[2018-02-10] MEDS: SIMVASTATIN 40 MG TABLET. PO (20:07)
[2018-02-10 20:51] LABS: POC GLUCOSE 147 mg/dL (70-99)
[2018-02-11] MEDS: IV NORMAL SALINE 1000ML BAG 1,000 ML IV ×2 (03:27→11:05)
[2018-02-11 04:28] LABS: ADD MAN DIFF? NO
[2018-02-11 04:54] LABS: BASO % 1 % (0-3); EOS # 0.2 x10^3/uL (0.0-0.7); EOS % 3 % (0-3); HEMATOCRIT 34.7 % (39.0-53.0); HEMOGLOBIN 12.3 g/dL (13.0-17.5); LYMPH # 0.7 x10^3/uL (1.0-4.8); LYMPH % 12 % (24-48); MEAN CORPUSCULAR HEMOGLOBIN 33 pg (25-35); MEAN CORPUSCULAR HGB CONC 36 g/dL (31-37); MEAN CORPUSCULAR VOLUME 93 fL (79-100); MONO # 0.6 x10^3/uL (0.0-1.1); MONO % 9 % (0-9); NEUT # 4.7 x10^3uL (1.8-7.7); NEUT % 76 % (31-73); PLATELET COUNT 123 x10^3/uL (140-400); RED BLOOD COUNT 3.74 x10^6/uL (4.30-5.70); RED CELL DISTRIBUTION WIDTH 13.3 % (11.5-14.5); WHITE BLOOD COUNT 6.2 x10^3/uL (4.0-11.0)
[2018-02-11 05:10] LABS: ANION GAP 9 (6-14); BLOOD UREA NITROGEN 21 mg/dL (8-26); CALCIUM 8.2 mg/dL (8.5-10.1); CARBON DIOXIDE 25 mmol/L (21-32); CHLORIDE 106 mmol/L (98-107); GFR 70.7; GLUCOSE 116 mg/dL (70-99); POTASSIUM 3.6 mmol/L (3.5-5.1); SODIUM 140 mmol/L (136-145)
[2018-02-11] MEDS: HYDROcodone/APAP 5/325MG 1 TAB TABLET PO (06:12)
[2018-02-11 07:36] LABS: POC GLUCOSE 114 mg/dL (70-99)
[2018-02-11] MEDS: INSULIN LISPRO 300 UNITS/3 ML INSULN.PEN. SQ ×2 (08:00→12:00)
[2018-02-11] MEDS: ASPIRIN CHEWABLE 81 MG TABLET. PO (08:14)
[2018-02-11] MEDS: CHOLECALCIFEROL (VITAMIN D3) 1,000 UNIT TABLET PO (08:14)
[2018-02-11] MEDS: PANTOPRAZOLE 40 MG TABLET.DR. PO (08:14)
[2018-02-11] MEDS: CLOPIDOGREL BISULFATE 75 MG TABLET PO (08:14)
[2018-02-11] MEDS: METOPROLOL TART IMMED RELEASE 25 MG TABLET. PO (08:17)
[2018-02-11] MEDS: LISINOPRIL 10 MG TABLET PO (08:17)
[2018-02-11] MEDS: glipiZIDE 5 MG TABLET PO (11:06)
[2018-02-11 12:33] LABS: POC GLUCOSE 90 mg/dL (70-99)
== END 2018-02-11 14:30 | disposition home or self-care (01) | DRG 637 ==
LOC: 1 WEST ICU 02-09 01:25 → ER 22:50 → 6 SOUTH 02-09 14:47
DX: E11.65 Type 2 diabetes mellitus with hyperglycemia (principal); N17.0 Acute kidney failure with tubular necrosis; E86.0 Dehydration; E86.1 Hypovolemia; N28.9 Disorder of kidney and ureter, unspecified; E78.5 Hyperlipidemia, unspecified; I10 Essential (primary) hypertension; I25.10 Atherosclerotic heart disease of native coronary artery without angina pectoris; K21.9 Gastro-esophageal reflux disease without esophagitis; D72.828 Other elevated white blood cell count; Z96.659 Presence of unspecified artificial knee joint; M19.90 Unspecified osteoarthritis, unspecified site; Z88.0 Allergy status to penicillin; Z79.899 Other long term (current) drug therapy; Z90.49 Acquired absence of other specified parts of digestive tract; Z79.4 Long term (current) use of insulin; Z95.0 Presence of cardiac pacemaker
CPT/HCPCS: 36415; 70450; 71045; 72125; 80048; 80053; 81001; 82553; 82962; 83036; 83735; 84484; 85007; 85025; 85610; 85730; 87641; 93005; 93306; 96360; 97161-GP; 97166-GO; 97530-GO; 97535-GO; 99285; 99285-25; J1815; J7030

== ENCOUNTER 2018-03-12 14:08 | Emergency (ER) | payer OTHER, MEDICARE ==
[~2018-03-12] VITALS: Ht 177.8 cm; Wt 77.1 kg
[~2018-03-12 14:08] MED LIST changes: +APIX5TAB PO; +ASPI-630 PO; +CLOP75TA PO; -FOSI20TA PO; +FOSI20TA3 PO; -METF-620 PO; +METF10007 PO; -REGADENOSON 0.4 MG/5 ML DISP.SYRIN. IV ONE; -SIMV80TA3 PO; +SIMV80TA7 PO
[2018-03-12 14:13] VITALS: BP 134/91
--- NOTE | 2018-03-12 14:47 | PHYS DOC ---
Past Medical History Past Medical History: Arthritis, CAD, Diabetes-Type II Past Surgical History: Knee Replacement, Pacemaker, Other Additional Past Surgical Histo: PTCA, STENTS Alcohol Use: Rarely Drug Use: None Adult General Chief Complaint Chief Complaint: EYE PROBLEMS [facility] HPI Patient is a 88 year old male who presents with bruising under the right eye after scratching it yesterday. Review of Systems Review of Systems Constitutional: Denies fever or chills [] Eyes: Denies change in visual acuity, redness, or eye pain, Purple Bruising under right eye. [] HENT: Denies nasal congestion or sore throat [] Respiratory: Denies cough or shortness of breath [] Cardiovascular: No additional information not addressed in HPI [] GI: Denies abdominal pain, nausea, vomiting, bloody stools or diarrhea [] : Denies dysuria or hematuria [] Musculoskeletal: Denies back pain or joint pain [] Integument: Denies rash or skin lesions [] Neurologic: Denies headache, focal weakness or sensory changes [] Endocrine: Denies polyuria or polydipsia [] All other systems were reviewed and found to be within normal limits, except as documented in this note. Allergies Allergies Allergies Coded Allergies Type Severity Reaction Last Updated Verified Penicillins Allergy Intermediate Hives 08/01/16 Yes Physical Exam Physical Exam Constitutional: Well developed, well nourished, no acute distress, non-toxic appearance. [] HENT: Normocephalic, atraumatic, bilateral external ears normal, oropharynx moist, no oral exudates, nose normal. [] Eyes: PERRLA, EOMI, conjunctiva normal, no discharge. [] Neck: Normal range of motion, no tenderness, supple, no stridor. [] Cardiovascular:Heart rate regular rhythm, no murmur [] Lungs & Thorax: Bilateral breath sounds clear to auscultation [] Abdomen: Bowel sounds normal, soft, no tenderness, no masses, no pulsatile masses. [] Skin: Warm, dry, no erythema, no rash. Bruising under right eye but without swelling or pain. [] Back: No tenderness, no CVA tenderness. [] Extremities: No tenderness, no cyanosis, no clubbing, ROM intact, no edema. [] Neurologic: Alert and oriented X 3, normal motor function, normal sensory function, no focal deficits noted. [] Psychologic: Affect normal, judgement normal, mood normal. [] Current Patient Data Vital Signs Vital Signs Date Time Temp Pulse Resp B/P (MAP) Pulse Ox O2 Delivery O2 Flow Rate FiO2 03/12/18 14:13 98.2 67 18 134/91 (105) 98 Room Air 98.2 EKG EKG [] Radiology/Procedures Radiology/Procedures [] Course & Med Decision Making Course & Med Decision Making Patient states that yesterday he kept scratching under his right eye and there was just a small area of redness yesterday but awoke today with a bruise under the right eye where he was scratching. Is on aliquots blood thinner and fell last week has been on naproxen for swelling in his feet [facility] Patients eye exam is unremarkable and patient complains of no pain, discharge, visual difficulties. Conjunctiva is without hemorrhages. Patient denies any pain. Patient denies any injury. Area under the patients eye with the bruising is nontender to palpation. Patient is neurologically intact. Patient is not bleeding from anywhere else on his body. I did go over this patient with Dr. Tapia and he stated that the patient needs to not be taking naproxen. The patient and daughter are told to not take any kind of NSAID and not to take the naproxen any longer. Patient should follow-up with his doctor. Patient is to take Tylenol only for pain. Patient is agreeable to this discharge plan. [] Dragon Disclaimer Dragon Disclaimer This electronic medical record was generated, in whole or in part, using a voice recognition dictation system. Departure Departure Impression: Primary Impression: Bruise of eye Disposition: 01 HOME, SELF-CARE Condition: STABLE Referrals: UNKNOWN PCP NAME (PCP) Patient Instructions: Contusion Additional Instructions: Follow-up with her primary care provider. Problem Qualifiers Primary Impression: Bruise of eye Encounter type: initial encounter Laterality: right Qualified Codes: S05.11XA - Contusion of eyeball and orbital tissues, right eye, initial encounter SARAH BETHEA AWARD MACHINE OPERATOR Mar 12, 2018 14:47
== END 2018-03-12 14:58 | disposition home or self-care (01) ==
LOC: ER 14:08
DX: S05.11XA Contusion of eyeball and orbital tissues, right eye, initial encounter (principal); E11.9 Type 2 diabetes mellitus without complications; I25.10 Atherosclerotic heart disease of native coronary artery without angina pectoris; Z95.5 Presence of coronary angioplasty implant and graft; Z95.0 Presence of cardiac pacemaker; Z88.0 Allergy status to penicillin; X58.XXXA Exposure to other specified factors, initial encounter; Y93.89 Activity, other specified; Y92.89 Other specified places as the place of occurrence of the external cause; Y99.8 Other external cause status
CPT/HCPCS: 99281

== ENCOUNTER 2018-03-26 12:37 | Inpatient (IN) | payer OTHER, MEDICARE ==
[~2018-03-26] VITALS: Ht 177.8 cm; Wt 89.8 kg
--- NOTE | 2018-03-26 12:47 | EKG ---
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
--- NOTE | 2018-03-26 13:12 | RAD ---
Portable chest, 03/26/2018: HISTORY: Syncope Comparison is made to a study from 02/09/2018. A left-sided transvenous pacemaker is unchanged in position. The heart size and pulmonary vascularity are normal. There is tortuosity and calcific plaquing of the aorta. No pulmonary infiltrate is seen. There is no evidence of pleural fluid. IMPRESSION: No acute cardiopulmonary abnormality is detected. Electronically signed by: William Car MD (03/26/2018 1:08 PM) [facility]
[2018-03-26 13:29] LABS: BASO # 0.1 x10^3/uL (0.0-0.2); BASO % 1 % (0-3); EOS # 0.1 x10^3/uL (0.0-0.7); EOS % 1 % (0-3); HEMATOCRIT 39.9 % (39.0-53.0); HEMOGLOBIN 14.3 g/dL (13.0-17.5); LYMPH # 0.6 x10^3/uL (1.0-4.8); LYMPH % 6 % (24-48); MEAN CORPUSCULAR HEMOGLOBIN 33 pg (25-35); MEAN CORPUSCULAR HGB CONC 36 g/dL (31-37); MEAN CORPUSCULAR VOLUME 93 fL (79-100); MONO # 0.5 x10^3/uL (0.0-1.1); MONO % 6 % (0-9); NEUT # 7.8 x10^3uL (1.8-7.7); NEUT % 86 % (31-73); PLATELET COUNT 144 x10^3/uL (140-400); RED BLOOD COUNT 4.31 x10^6/uL (4.30-5.70); RED CELL DISTRIBUTION WIDTH 13.3 % (11.5-14.5)
--- NOTE | 2018-03-26 13:35 | PHYS DOC ---
Past Medical History Past Medical History: A-Fib, Arthritis, CAD, Diabetes-Type II Past Surgical History: Knee Replacement, Pacemaker, Other Additional Past Surgical Histo: PTCA, STENTS Additional Information: Denies a smoking Alcohol Use: Rarely Drug Use: None Adult General Chief Complaint Chief Complaint: SYNCOPE HPI HPI Patient is a 88 year old male who brought in by EMS because of syncope. Patient was at a restaurant with his son-in-law and after drinking half a bottle of beer started dropping.stuff and then became unresponsive for 2 minutes without seizure activity. Patient was pale and cool with very slow breathing and after rubbing his right side of chest by his son-in-law started to become awake and did not know what was happened to him. Patient had history of pacemaker placement and A fib on Eliquis and did not have history of syncope. Patient states he feels a little bit weak but denies chest pain, palpitation, focal neuro deficit, nausea and vomiting Review of Systems Review of Systems Constitutional: Denies fever or chills [] Eyes: Denies change in visual acuity, redness, or eye pain [] HENT: Denies nasal congestion or sore throat [] Respiratory: Denies cough or shortness of breath [] Cardiovascular: No additional information not addressed in HPI [] GI: Denies abdominal pain, nausea, vomiting, bloody stools or diarrhea [] : Denies dysuria or hematuria [] Musculoskeletal: Denies back pain or joint pain [] Integument: Denies rash or skin lesions [] Neurologic: Denies headache, focal weakness or sensory changes [] Endocrine: Denies polyuria or polydipsia [] All other systems were reviewed and found to be within normal limits, except as documented in this note. Allergies Allergies Allergies Coded Allergies Type Severity Reaction Last Updated Verified Penicillins Allergy Intermediate Hives 08/01/16 Yes Physical Exam Physical Exam Constitutional: Well developed, well nourished, no acute distress, non-toxic appearance. [] HENT: Normocephalic, atraumatic, bilateral external ears normal, oropharynx moist, no oral exudates, nose normal. [] Eyes: PERRLA, EOMI, conjunctiva normal, no discharge. [] Neck: Normal range of motion, no tenderness, supple, no stridor. [] Cardiovascular:Heart rate regular rhythm, no murmur [] Lungs & Thorax: Bilateral breath sounds clear to auscultation [] Abdomen: Bowel sounds normal, soft, no tenderness, no masses, no pulsatile masses. [] Skin: Warm, dry, no erythema, no rash. [] Back: No tenderness, no CVA tenderness. [] Extremities: No tenderness, no cyanosis, no clubbing, ROM intact, no edema. [] Neurologic: Alert and oriented X 3, normal motor function, normal sensory function, no focal deficits noted. [] Psychologic: Affect normal, judgement normal, mood normal. [] Current Patient Data Vital Signs Vital Signs Date Time Temp Pulse Resp B/P (MAP) Pulse Ox O2 Delivery O2 Flow Rate FiO2 03/26/18 12:50 98.1 65 16 109/63 (78) 98 Room Air 98.1 Lab Values Laboratory Tests Test 03/26/18 13:12 White Blood Count 9.0 x10^3/uL (4.0-11.0) Red Blood Count 4.31 x10^6/uL (4.30-5.70) Hemoglobin 14.3 g/dL (13.0-17.5) Hematocrit 39.9 % (39.0-53.0) Mean Corpuscular Volume 93 fL (79-100) Mean Corpuscular Hemoglobin 33 pg (25-35) Mean Corpuscular Hemoglobin Concent 36 g/dL (31-37) Red Cell Distribution Width 13.3 % (11.5-14.5) Platelet Count 144 x10^3/uL (140-400) Neutrophils (%) (Auto) 86 % (31-73) H Lymphocytes (%) (Auto) 6 % (24-48) L Monocytes (%) (Auto) 6 % (0-9) Eosinophils (%) (Auto) 1 % (0-3) Basophils (%) (Auto) 1 % (0-3) Neutrophils # (Auto) 7.8 x10^3uL (1.8-7.7) H Lymphocytes # (Auto) 0.6 x10^3/uL (1.0-4.8) L Monocytes # (Auto) 0.5 x10^3/uL (0.0-1.1) Eosinophils # (Auto) 0.1 x10^3/uL (0.0-0.7) Basophils # (Auto) 0.1 x10^3/uL (0.0-0.2) Platelet Estimate Pending Prothrombin Time 15.6 SEC (11.7-14.0) H Prothrombin Time INR 1.3 (0.8-1.1) H D-Dimer (Tiana) 2.51 ug/mlFEU (0.00-0.50) H Sodium Level 141 mmol/L (136-145) Potassium Level 4.2 mmol/L (3.5-5.1) Chloride Level 106 mmol/L (98-107) Carbon Dioxide Level 23 mmol/L (21-32) Anion Gap 12 (6-14) Blood Urea Nitrogen 21 mg/dL (8-26) Creatinine 1.4 mg/dL (0.7-1.3) H Estimated GFR (Cockcroft-Gault) 47.8 BUN/Creatinine Ratio 15 (6-20) Glucose Level 149 mg/dL (70-99) H Calcium Level 8.4 mg/dL (8.5-10.1) L Magnesium Level 1.7 mg/dL (1.8-2.4) L Total Bilirubin 0.6 mg/dL (0.2-1.0) Aspartate Amino Transferase (AST) 9 U/L (15-37) L Alanine Aminotransferase (ALT) 15 U/L (16-63) L Alkaline Phosphatase 86 U/L (46-116) Creatine Kinase 53 U/L (39-308) Troponin I Quantitative < 0.017 ng/mL (0.000-0.055) PJ-Vqr-Z-Type Natriuretic Peptide 183 pg/mL (0-449) Total Protein 6.6 g/dL (6.4-8.2) Albumin 3.5 g/dL (3.4-5.0) Albumin/Globulin Ratio 1.1 (1.0-1.7) Laboratory Tests 03/26/18 13:12 Laboratory Tests 03/26/18 13:12 EKG EKG EKG interpreted by me. EKG at 1242 showed atrial fibrillation with PVCs, abnormal left axis deviation, nonspecific intervals ventricular block, Q waves in inferior leads, no acute ST and T-wave abnormalities. Radiology/Procedures Radiology/Procedures [facility] [address] [place] [address] IMAGING REPORT Signed PATIENT: NANCY LYNN ACCOUNT: [id number] : 1930 LOCATION: ER AGE: 88 SEX: M EXAM STATUS: REG ER ORD. PHYSICIAN: JORGE JESSICA MD REASON: syncope PROCEDURE: PORTABLE CHEST 1V Portable chest, 03/26/2018: HISTORY: Syncope Comparison is made to a study from 02/09/2018. A left-sided transvenous pacemaker is unchanged in position. The heart size and pulmonary vascularity are normal. There is tortuosity and calcific plaquing of the aorta. No pulmonary infiltrate is seen. There is no evidence of pleural fluid. IMPRESSION: No acute cardiopulmonary abnormality is detected. Electronically signed by: William Car MD (03/26/2018 1:08 PM) [facility] DICTATED and SIGNED BY: WILLIAM CAR MD DATE: 03/26/18 1302 Course & Med Decision Making Course & Med Decision Making Pertinent Labs and Imaging studies reviewed. (See chart for details) Evaluation of patient in ER showed 88-year-old male patient with episodes of syncope. Patient had pacemaker and EMS reported that episode of bradycardia bradycardia but evaluation of strip of pacemaker by [employer] technician automated equipment did not show bradycardia and showed atrial fibrillation for the last 8.5 hours. Patient had elevation of d-dimer and has history of right leg pain for almost one month after head injury to right leg. VQ scan requested and pending. Dr. Antonio consulted at [address] Greenberg accepted admission at 1359. Dragon Disclaimer Dragon Disclaimer This electronic medical record was generated, in whole or in part, using a voice recognition dictation system. Departure Departure Impression: Primary Impression: Near syncope Additional Impressions: Elevated d-dimer Renal insufficiency Atrial fibrillation Disposition: ADMITTED INPATIENT (@1359) Admitting Physician: Brenna Berg Condition: IMPROVED Referrals: UNKNOWN PCP NAME (PCP) Problem Qualifiers JORGE JESSICA MD Mar 26, 2018 13:35
[2018-03-26 13:36] LABS: PROTHROMBIN TIME PATIENT 15.6 SEC (11.7-14.0)
[2018-03-26 13:38] LABS: CALCIUM 8.4 mg/dL (8.5-10.1); CREATININE 1.4 mg/dL (0.7-1.3); GFR 47.8; POTASSIUM 4.2 mmol/L (3.5-5.1)
[2018-03-26 13:43] LABS: ALBUMIN 3.5 g/dL (3.4-5.0); ALBUMIN/GLOBULIN RATIO 1.1 (1.0-1.7); MAGNESIUM 1.7 mg/dL (1.8-2.4); TOTAL BILIRUBIN 0.6 mg/dL (0.2-1.0); TOTAL PROTEIN 6.6 g/dL (6.4-8.2)
--- NOTE | 2018-03-26 13:52 | RAD ---
CT of the head without contrast, 03/26/2018: HISTORY: Syncope Comparison is made to a study from 02/08/2018. There is moderate cerebral atrophy. There are moderate patchy lucencies in the deep white matter bilaterally compatible with chronic ischemic change. The ventricles are mildly prominent on a compensatory basis. There is no shift of the midline structures. There is no evidence of acute intracranial hemorrhage or mass effect. There is extensive calcific plaquing involving the distal internal carotid and vertebral arteries. There is mild mucosal thickening in the ethmoid and frontal sinuses. IMPRESSION: 1. Chronic findings as described above. 2. No acute intracranial abnormality is detected. PQRS Compliance Statement: One or more of the following individualized dose reduction techniques were utilized for this examination: 1. Automated exposure control 2. Adjustment of the mA and/or kV according to patient size 3. Use of iterative reconstruction technique Electronically signed by: William Car MD (03/26/2018 1:48 PM) [facility]
[2018-03-26] MEDS ORDERED: ACETAMINOPHEN 500 MG TABLET PO PRN (14:15)
[2018-03-26] MEDS ORDERED: ONDANSETRON ODT 4 MG TAB.RAPDIS. PO PRN (14:15)
[2018-03-26] MEDS ORDERED: ONDANSETRON PF 4 MG/2 ML VIAL. IV PRN (14:15)
[2018-03-26] MEDS ORDERED: ACETAMINOPHEN/CODEINE 300/30MG TABLET. PO PRN (14:15)
--- NOTE | 2018-03-26 14:15 | PDOC1 ---
History and Physical Date of Admission Date of Admission DATE: 03/26/18 TIME: 14:08 Identification/Chief Complaint Chief Complaint passed out in the restaurant witnessed by the son Source Source: Caregiver, Chart review, Patient History of Present Illness History of Present Illness Very pleasant family. Seen at ER. 88-year-old male whom I just discharged maybe few weeks ago this month, he was admitted for presyncope or syncope secondary to dehydration. He was out mowing the lawn and not adequately taking in oral hydration in this hear. He was discharged by my colleague with [facility] Now, the son was having lunch with the patient, patient denied any symptoms prior to passing out. He did lose consciousness, slumped forward. SOn able to catch his fall, hence no head trauma. DId sweeping maneuver in mouth but no food particles, or signs of choking,. CXR is neg, Was out for 2 minutes max, no seizure-like activities, no bladder or bowel incontinence. No history of this similar dramatic syncope in the past. He has history of A. fib on OAC with INR 2.5 and is compliant. Known to Dr. Gonzales. Creatinine is 1.4, magnesium is 1.7 - I will order some replacements. CT head and chest x-ray is negative. Again patient denies any symptoms prior to coming prior to passing out, upon coming to, patient had some transient confusion did not speak at first and then started to talk at the restaurant few minutes afterwards. Patient was radford in color, blue lips, cold clammy as per son, he was trying to wake him up, screaming his name out loud but he did not respond. After 2 minutes, he started to regain consciousness. Blood sugar was okay, EMS does not report any A. fib RVR on field. He was hypotensive 90s on laying down and upon sitting up did drop blood pressure again. They took his blood pressure standing up, and the son could swear that if they let go he would fall again. Pt is now feeling 100 % fine at ER. Patient hence admitted because of the syncope, replace hypomagnesemia, AK I, and have cardiology see the patient. Patient is a full code and follows with Dr. KHOI Holland Past Medical History Cardiovascular: HTN, Hyperlipidemia Pulmonary: No pertinent hx CENTRAL NERVOUS SYSTEM: Other GI: GERD Heme/Onc: No pertinent hx Hepatobiliary: No pertinent hx Psych: No pertinent hx Musculoskeletal: Osteoarthritis Rheumatologic: No pertinent hx Infectious disease: No pertinent hx Renal/: Benign prostatic enlarg. Endocrine: Diabetes Past Surgical History Past Surgical History: Appendectomy, Cataract Removal, Total knee replacement, Other Family History Family History: No Significant Social History Smoke: No ALCOHOL: none Drugs: None Current Medications Current Medications Active Scripts Active Clopidogrel (Clopidogrel Bisulfate) 75 Mg Tablet 75 Mg PO DAILYWBKFT 90 Days Reported Aspirin 81 Mg Tab.chew 81 Mg PO DAILY Loratadine 10 Mg Tablet 1 Tab PO DAILY PRN Vitamin D3 (Cholecalciferol (Vitamin D3)) 1,000 Unit Tablet 1 Tab PO DAILY Metoprolol Tartrate 25 Mg Tablet 1 Tab PO BID Omeprazole 20 Mg Capsule.dr 1 Cap PO DAILY Glipizide 10 Mg Tablet 2 Tab PO BID Fosinopril Sodium 20 Mg Tablet 0.5 Tab PO BID Terazosin Hcl 5 Mg Capsule 1 Cap PO QHS Simvastatin 80 Mg Tablet 1 Tab PO QHS Metformin Hcl 1,000 Mg Tablet 1 Tab PO BID Allergies Allergies: Coded Allergies: Penicillins (Verified Allergy, Intermediate, Hives, 08/01/16) ROS Review of System A 14 point ROS was completed with the following noted as positive: Other systems reviewed and negative. \CONSTITUTIONAL: No fever or chills EYES: No recent changes SKIN: No rash or itching CARDIOVASCULAR: No chest pain, syncope, palpitations, or edema RESPIRATORY: No SOB or cough GASTROINTESTINAL: No nausea, vomiting or abdominal pain NEUROLOGICAL: No headaches or weakness ENDOCRINE: No cold or heat intolerance GENITOURINARY: No urgency or frequency of urination MUSCULOSKELETAL: No back pain or joint pain LYMPHATICS: No enlarged lymph nodes PSYCHIATRIC: No anxiety or depression Physical Exam General: Alert, Oriented X3, Cooperative, No acute distress HEENT: Atraumatic, PERRLA, EOMI Lungs: Clear to auscultation, Normal air movement Heart: S1S2, RRR, no thrills, no rubs, no gallops, no murmurs Cardiovascular: S1, S2 Abdomen: Normal bowel sounds, Soft, No tenderness, No hepatosplenomegaly, No masses Male Genitals Exam: normal genitalia, normal prostate Rectal Exam: not examined Extremities: No clubbing, No cyanosis, No edema, Normal pulses, No tenderness/ swelling Skin: No rashes, No breakdown, No significant lesion Neuro: Normal gait, Normal speech, Strength at 5/5 X4 ext, Normal tone, Sensation intact, Cranial nerves 3-12 NL, Reflexes 2+ Psych/Mental Status: Mental status NL, Mood NL Vitals Vitals Vital Signs Date Time Temp Pulse Resp B/P (MAP) Pulse Ox O2 Delivery O2 Flow Rate FiO2 03/26/18 12:50 98.1 65 16 109/63 (78) 98 Room Air 98.1 Labs Labs Laboratory Tests Test 03/26/18 13:12 White Blood Count 9.0 x10^3/uL (4.0-11.0) Red Blood Count 4.31 x10^6/uL (4.30-5.70) Hemoglobin 14.3 g/dL (13.0-17.5) Hematocrit 39.9 % (39.0-53.0) Mean Corpuscular Volume 93 fL (79-100) Mean Corpuscular Hemoglobin 33 pg (25-35) Mean Corpuscular Hemoglobin Concent 36 g/dL (31-37) Red Cell Distribution Width 13.3 % (11.5-14.5) Platelet Count 144 x10^3/uL (140-400) Neutrophils (%) (Auto) 86 % (31-73) Lymphocytes (%) (Auto) 6 % (24-48) Monocytes (%) (Auto) 6 % (0-9) Eosinophils (%) (Auto) 1 % (0-3) Basophils (%) (Auto) 1 % (0-3) Neutrophils # (Auto) 7.8 x10^3uL (1.8-7.7) Lymphocytes # (Auto) 0.6 x10^3/uL (1.0-4.8) Monocytes # (Auto) 0.5 x10^3/uL (0.0-1.1) Eosinophils # (Auto) 0.1 x10^3/uL (0.0-0.7) Basophils # (Auto) 0.1 x10^3/uL (0.0-0.2) Prothrombin Time 15.6 SEC (11.7-14.0) Prothromb Time International Ratio 1.3 (0.8-1.1) D-Dimer (Tiana) 2.51 ug/mlFEU (0.00-0.50) Sodium Level 141 mmol/L (136-145) Potassium Level 4.2 mmol/L (3.5-5.1) Chloride Level 106 mmol/L (98-107) Carbon Dioxide Level 23 mmol/L (21-32) Anion Gap 12 (6-14) Blood Urea Nitrogen 21 mg/dL (8-26) Creatinine 1.4 mg/dL (0.7-1.3) Estimated GFR (Cockcroft-Gault) 47.8 BUN/Creatinine Ratio 15 (6-20) Glucose Level 149 mg/dL (70-99) Calcium Level 8.4 mg/dL (8.5-10.1) Magnesium Level 1.7 mg/dL (1.8-2.4) Total Bilirubin 0.6 mg/dL (0.2-1.0) Aspartate Amino Transf (AST/SGOT) 9 U/L (15-37) Alanine Aminotransferase (ALT/SGPT) 15 U/L (16-63) Alkaline Phosphatase 86 U/L (46-116) Creatine Kinase 53 U/L (39-308) Troponin I Quantitative < 0.017 ng/mL (0.000-0.055) ZI-Kye-Y-Type Natriuretic Peptide 183 pg/mL (0-449) Total Protein 6.6 g/dL (6.4-8.2) Albumin 3.5 g/dL (3.4-5.0) Albumin/Globulin Ratio 1.1 (1.0-1.7) Laboratory Tests Test 03/26/18 13:12 White Blood Count 9.0 x10^3/uL (4.0-11.0) Red Blood Count 4.31 x10^6/uL (4.30-5.70) Hemoglobin 14.3 g/dL (13.0-17.5) Hematocrit 39.9 % (39.0-53.0) Mean Corpuscular Volume 93 fL (79-100) Mean Corpuscular Hemoglobin 33 pg (25-35) Mean Corpuscular Hemoglobin Concent 36 g/dL (31-37) Red Cell Distribution Width 13.3 % (11.5-14.5) Platelet Count 144 x10^3/uL (140-400) Neutrophils (%) (Auto) 86 % (31-73) Lymphocytes (%) (Auto) 6 % (24-48) Monocytes (%) (Auto) 6 % (0-9) Eosinophils (%) (Auto) 1 % (0-3) Basophils (%) (Auto) 1 % (0-3) Neutrophils # (Auto) 7.8 x10^3uL (1.8-7.7) Lymphocytes # (Auto) 0.6 x10^3/uL (1.0-4.8) Monocytes # (Auto) 0.5 x10^3/uL (0.0-1.1) Eosinophils # (Auto) 0.1 x10^3/uL (0.0-0.7) Basophils # (Auto) 0.1 x10^3/uL (0.0-0.2) Prothrombin Time 15.6 SEC (11.7-14.0) Prothromb Time International Ratio 1.3 (0.8-1.1) D-Dimer (Tiana) 2.51 ug/mlFEU (0.00-0.50) Sodium Level 141 mmol/L (136-145) Potassium Level 4.2 mmol/L (3.5-5.1) Chloride Level 106 mmol/L (98-107) Carbon Dioxide Level 23 mmol/L (21-32) Anion Gap 12 (6-14) Blood Urea Nitrogen 21 mg/dL (8-26) Creatinine 1.4 mg/dL (0.7-1.3) Estimated GFR (Cockcroft-Gault) 47.8 BUN/Creatinine Ratio 15 (6-20) Glucose Level 149 mg/dL (70-99) Calcium Level 8.4 mg/dL (8.5-10.1) Magnesium Level 1.7 mg/dL (1.8-2.4) Total Bilirubin 0.6 mg/dL (0.2-1.0) Aspartate Amino Transf (AST/SGOT) 9 U/L (15-37) Alanine Aminotransferase (ALT/SGPT) 15 U/L (16-63) Alkaline Phosphatase 86 U/L (46-116) Creatine Kinase 53 U/L (39-308) Troponin I Quantitative < 0.017 ng/mL (0.000-0.055) YF-Npo-P-Type Natriuretic Peptide 183 pg/mL (0-449) Total Protein 6.6 g/dL (6.4-8.2) Albumin 3.5 g/dL (3.4-5.0) Albumin/Globulin Ratio 1.1 (1.0-1.7) VTE Prophylaxis Ordered VTE Prophylaxis Devices: Yes VTE Pharmacological Prophylaxi: Yes Assessment/Plan Assessment/Plan Syncope, differentials need rule out PE, arrhythmia, or plain vasovagal syncope History of A. fib on OAC, compliant, no RVR on admission or in the field Mild hypomagnesemia, magnesium 1.7 AK I VMN, creatinine 1.4 Full code History of recent syncope or presyncope secondary to dehydration Plan: Admit, cardiology bed, cards consulted Check orthostatics Replace magnesium Recheck labs tomorrow VQ scan has been ordered to rule out PE, cannot do CTA because of creatinine 1.4 Avoid nephrotoxins Monitor hypomagnesemia and creatinine PT OT Fall risk Full code Seen at ER, #2 Awaiting home WILLIE Hdz MD Mar 26, 2018 14:15
[2018-03-26] MEDS ORDERED: DEXTROSE 50% 25 GM / 50ML DISP.SYRIN. IV PRN (14:30)
[2018-03-26] MEDS ORDERED: MAGNESIUM SULFATE 2GM 50 ML IV ONE (14:30)
[2018-03-26 14:31] LABS: % BANDS 10 % (0-9); % EOS 2 % (0-5); % LYMPHS 6 % (24-48); % MONOS 8 % (0-10); % SEGS 74 % (35-66)
[2018-03-26 14:32] LABS: PLT ESTIMATE ADEQUATE (ADEQUATE)
[2018-03-26] MEDS ORDERED: MAGNESIUM SULFATE 1GM 100 ML IV ONE (15:00)
[2018-03-26 15:30] VITALS: BP 133/64
[2018-03-26] MEDS: INSULIN LISPRO 300 UNITS/3 ML INSULN.PEN. SQ SCH (17:00)
--- NOTE | 2018-03-26 17:07 | RAD ---
Ventilation/perfusion lung scan, 03/26/2018: HISTORY: Syncope, elevated d-dimer The ventilation study was performed utilizing 10 mCi of xenon-133. There is heterogeneous activity in the lungs. There is decreased ventilation in the left base. There is focal retention of activity in the left lung base on the washout phase. Ventilation imaging was performed utilizing 5.5 mCi of technetium 99m MAA. A similar pattern of activity is present in the lungs with a matched perfusion defect in the left base. No unmatched perfusion defects are seen. IMPRESSION: 1. Single matched ventilation and perfusion abnormality in the left base. 2. The probability of pulmonary emboli is considered to be low. Electronically signed by: William Car MD (03/26/2018 5:03 PM) [facility]
[2018-03-26] MEDS: glipiZIDE 5 MG TABLET PO SCH (17:08)
[2018-03-26 18:20] VITALS: BP 102/61
[2018-03-26 18:25] VITALS: BP 119/78
[2018-03-26 18:30] VITALS: BP 124/80
[2018-03-26 19:50] VITALS: BP 128/62
[2018-03-26] MEDS: TERAZOSIN 5 MG CAPSULE. PO SCH (20:48)
[2018-03-26] MEDS: SIMVASTATIN 40 MG TABLET. PO SCH (20:48)
[2018-03-26] MEDS: LISINOPRIL 10 MG TABLET PO SCH (20:48)
[2018-03-26] MEDS: METOPROLOL TART IMMED RELEASE 25 MG TABLET. PO SCH (20:49)
[2018-03-26 22:50] VITALS: BP 97/58
[2018-03-27 03:25] VITALS: BP 98/64
[2018-03-27 05:39] LABS: BILIRUBIN,URINE NEGATIVE (NEG); CLARITY,URINE CLEAR; COLOR,URINE YELLOW; NITRITE,URINE NEGATIVE (NEG); PH,URINE 6.5; PROTEIN,URINE NEGATIVE (NEG-TRACE)
[2018-03-27 05:40] LABS: BACTERIA,URINE 0 /HPF (0-FEW); RBC,URINE OCC /HPF (0-2); SQUAMOUS EPITHELIAL CELL,UR FEW /LPF; WBC,URINE OCC /HPF (0-4)
[2018-03-27 07:00] VITALS: BP 114/79
[2018-03-27] MEDS: INSULIN LISPRO 300 UNITS/3 ML INSULN.PEN. SQ SCH ×3 (08:00→17:00)
[2018-03-27] MEDS: METOPROLOL TART IMMED RELEASE 25 MG TABLET. PO SCH ×2 (08:29→20:24)
[2018-03-27] MEDS: CLOPIDOGREL BISULFATE 75 MG TABLET PO SCH (08:29)
[2018-03-27] MEDS: ASPIRIN CHEWABLE 81 MG TABLET. PO SCH (08:29)
[2018-03-27] MEDS: CHOLECALCIFEROL (VITAMIN D3) 1,000 UNIT TABLET PO SCH (08:29)
[2018-03-27] MEDS: PANTOPRAZOLE 40 MG TABLET.DR. PO SCH (08:30)
[2018-03-27] MEDS: glipiZIDE 5 MG TABLET PO SCH ×2 (08:30→17:31)
[2018-03-27] MEDS: LISINOPRIL 10 MG TABLET PO SCH ×2 (08:31→20:23)
[2018-03-27] MEDS ORDERED: CETIRIZINE HCL 10 MG TABLET. PO PRN (09:00)
--- NOTE | 2018-03-27 09:36 | PDOC2 ---
AUSTIN TAMAYO GRADE RECORDER 03/27/18 0936: CARDIAC CONSULT DATE OF CONSULT Date of Consult DATE: 03/27/18 TIME: 09:32 REASON FOR CONSULT Reason for Consult: syncope REFERRING PHYSICIAN Referring Physician: Samuel SOURCE Source: Chart review, Patient HISTORY OF PRESENT ILLNESS HISTORY OF PRESENT ILLNESS 88 year old male who was eating yesterday when he become syncopal yesterday. Reports dizziness and lightheadedness immediately prior to syncope. Passed out in restaurant prior to eating and after drinking a small amount of beer. Reports not taking his prescribed meds on a regular basis, however, took them Sat night and Sun a.m. Did not eat breakfast Sun morning but drank 2 cups of coffee. Reportedly pale and with cyanotic lips at time of incident. Was here with similar symptoms and diagnosed with dehydration. Pacer interrogation yesterday demonstrated atrial fib which is not a new finding for him, but fastest rate was 119. No further symptoms since admission; then remembered he had diarrhea 4 days ago after eating a lot of fruit and taking laxatives. Reason for Visit: syncope PAST MEDICAL HISTORY Cardiovascular: AFIB, CAD (with PCI/GARRETT to LM and LAD - 05/2017), HTN, Hyperlipidemia, Other (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) FAMILY HISTORY Family History: Family History Unknown SOCIAL HISTORY Smoke: No ALCOHOL: none Drugs: None CURRENT MEDICATIONS CURRENT MEDICATIONS Current Medications Medications (Trade) Dose Ordered Sig/Brendon Route PRN Reason Start Time Stop Time Status Last Admin Dose Admin Aspirin (Children'S Aspirin) 81 mg DAILY PO 03/27/18 09:00 03/27/18 08:29 Vitamin D (Vitamin D3) 1,000 unit DAILY PO 03/27/18 09:00 03/27/18 08:29 Clopidogrel Bisulfate (Plavix) 75 mg DAILYWBKFT PO 03/27/18 08:00 03/27/18 08:29 Metoprolol Tartrate (Lopressor) 25 mg BID PO 03/26/18 21:00 03/27/18 08:29 Lisinopril (Prinivil) 10 mg BID PO 03/26/18 21:00 03/27/18 08:31 Glipizide (Glucotrol) 20 mg BIDBFRMEAL PO 03/26/18 16:30 03/27/18 08:30 Pantoprazole Sodium (Protonix) 40 mg DAILYAC PO 03/27/18 07:30 03/27/18 08:30 Simvastatin (Zocor) 80 mg QHS PO 03/26/18 21:00 03/26/18 20:48 Terazosin HCl (Hytrin) 5 mg QHS PO 03/26/18 21:00 03/26/18 20:48 Magnesium Sulfate/ Dextrose 100 ml @ 100 mls/hr 1X ONCE IV 03/26/18 15:00 03/26/18 15:59 DC 03/26/18 16:09 ALLERGIES ALLERGIES: Coded Allergies: Penicillins (Verified Allergy, Intermediate, Hives, 08/01/16) ROS Review of System 10 point review with pertinent positives in HPI PHYSICAL EXAM General: Alert, Oriented X3, Cooperative, No acute distress HEENT: Atraumatic Lungs: Clear to auscultation Heart: Normal S1, Normal S2, Other (left pectoral region pacemaker) Abdomen: Soft Extremities: No edema Skin: No rashes Neuro: Normal speech Psych/Mental Status: Mental status NL, Mood NL MUSCULOSKELETAL: No deformity VITALS VITALS Vital Signs Date Time Temp Pulse Resp B/P (MAP) Pulse Ox O2 Delivery O2 Flow Rate FiO2 03/27/18 08:31 78 114/79 03/27/18 07:57 Room Air 03/27/18 07:00 98.1 18 97 98.1 LABS Lab: Laboratory Tests Test 03/26/18 13:12 03/26/18 17:22 03/26/18 18:00 03/26/18 21:00 White Blood Count 9.0 x10^3/uL (4.0-11.0) Red Blood Count 4.31 x10^6/uL (4.30-5.70) Hemoglobin 14.3 g/dL (13.0-17.5) Hematocrit 39.9 % (39.0-53.0) Mean Corpuscular Volume 93 fL (79-100) Mean Corpuscular Hemoglobin 33 pg (25-35) Mean Corpuscular Hemoglobin Concent 36 g/dL (31-37) Red Cell Distribution Width 13.3 % (11.5-14.5) Platelet Count 144 x10^3/uL (140-400) Neutrophils (%) (Auto) 86 % (31-73) Lymphocytes (%) (Auto) 6 % (24-48) Monocytes (%) (Auto) 6 % (0-9) Eosinophils (%) (Auto) 1 % (0-3) Basophils (%) (Auto) 1 % (0-3) Neutrophils # (Auto) 7.8 x10^3uL (1.8-7.7) Lymphocytes # (Auto) 0.6 x10^3/uL (1.0-4.8) Monocytes # (Auto) 0.5 x10^3/uL (0.0-1.1) Eosinophils # (Auto) 0.1 x10^3/uL (0.0-0.7) Basophils # (Auto) 0.1 x10^3/uL (0.0-0.2) Segmented Neutrophils % 74 % (35-66) Band Neutrophils % 10 % (0-9) Lymphocytes % 6 % (24-48) Monocytes % 8 % (0-10) Eosinophils % 2 % (0-5) Platelet Estimate Adequate (ADEQUATE) Prothrombin Time 15.6 SEC (11.7-14.0) Prothromb Time International Ratio 1.3 (0.8-1.1) D-Dimer (Tiana) 2.51 ug/mlFEU (0.00-0.50) Sodium Level 141 mmol/L (136-145) Potassium Level 4.2 mmol/L (3.5-5.1) Chloride Level 106 mmol/L (98-107) Carbon Dioxide Level 23 mmol/L (21-32) Anion Gap 12 (6-14) Blood Urea Nitrogen 21 mg/dL (8-26) Creatinine 1.4 mg/dL (0.7-1.3) Estimated GFR (Cockcroft-Gault) 47.8 BUN/Creatinine Ratio 15 (6-20) Glucose Level 149 mg/dL (70-99) Calcium Level 8.4 mg/dL (8.5-10.1) Magnesium Level 1.7 mg/dL (1.8-2.4) Total Bilirubin 0.6 mg/dL (0.2-1.0) Aspartate Amino Transf (AST/SGOT) 9 U/L (15-37) Alanine Aminotransferase (ALT/SGPT) 15 U/L (16-63) Alkaline Phosphatase 86 U/L (46-116) Creatine Kinase 53 U/L (39-308) Troponin I Quantitative < 0.017 ng/mL (0.000-0.055) < 0.017 ng/mL (0.000-0.055) < 0.017 ng/mL (0.000-0.055) IR-Xcq-K-Type Natriuretic Peptide 183 pg/mL (0-449) Total Protein 6.6 g/dL (6.4-8.2) Albumin 3.5 g/dL (3.4-5.0) Albumin/Globulin Ratio 1.1 (1.0-1.7) Glucose (Fingerstick) 133 mg/dL (70-99) Test 03/26/18 21:05 03/27/18 04:45 03/27/18 07:17 Glucose (Fingerstick) 166 mg/dL (70-99) 124 mg/dL (70-99) Urine Collection Type Unknown Urine Color Yellow Urine Clarity Clear Urine pH 6.5 Urine Specific [place] 1.025 Urine Protein Negative mg/dL (NEG-TRACE) Urine Glucose (UA) 100 mg/dL (NEG) Urine Ketones (Stick) Negative mg/dL (NEG) Urine Blood Negative (NEG) Urine Nitrite Negative (NEG) Urine Bilirubin Negative (NEG) Urine Urobilinogen Dipstick 1.0 mg/dL (0.2 mg/dL) Urine Leukocyte Esterase Negative (NEG) Urine RBC Occ /HPF (0-2) Urine WBC Occ /HPF (0-4) Urine Squamous Epithelial Cells Few /LPF Urine Bacteria 0 /HPF (0-FEW) Urine Mucus Mod /LPF IMAGES IMAGES CXR - no acute process EKG EKG atrial fib ECHOCARDIOGRAM ECHOCARDIOGRAM 02/09/2018: TTE: The left ventricular systolic function is normal. The Ejection Fraction is 55-60%. There is normal LV segmental wall motion. Pacer wire noted right atrium and ventricle. Doppler and Color Flow revealed mild tricuspid regurgitation. The PA pressure was estimated at 29 mmHg. There is no evidence of significant pericardial effusion. HEART CATH HEART CATH 05/2017: EMODYNAMICS: LVEDP 8 mm Hg No gradient on LV to aortic pullback. LEFT VENTRICULOGRAM: LV gram deferred due to renal dysfunction. CORONARY ANGIOGRAPHY: LM is a large caliber vessel with a calcified distal 80% stenosis extending to the ostium of the LAD. LAD is a moderate caliber vessel with a mid focal 90% calcified stenosis. The distal vessel is free of any significant disease. Ramus and D1 are small to moderate caliber vessels with moderate diffuse disease of up to 40-50%. LCx is a moderate caliber non-dominant vessel with normal angiographic appearance. OM1 is a small caliber vessel with normal angiographic appearance. RCA is a large caliber dominant vessel with mild diffuse irregularities of up to 40%. RPDA and RPL are moderate caliber vessels with normal angiographic appearance. Conclusion 1. Critical LM and mid LAD disease with transient ischemic dilation and unstable angina. 2. Acute on chronic heart failure. ASSESSMENT/PLAN ASSESSMENT/PLAN 1. syncope --out X 2 seconds --check PPM to determine if dysrhythmia -- chronic atrial fib --check orthostatics---not demonstrated yesterday --non-compliant with meds; may not take for days then resumes; no breakfast yesterday morning - but took meds --? related to dehydration or blood sugar 2. bradycardia/sinus arrest with prior PPM 3. atrial fib; rate controlled --no OAC due to syncope/falls 4. DM, II --per primary service GREGORY BURKS MD 03/27/18 0255: CARDIAC CONSULT ASSESSMENT/PLAN ASSESSMENT/PLAN Patient seen and examined. Agree with INSEMINATION WORKER's assessment and plan. Syncope of uncertain etiology Pacemaker interrogation showed normal function Permanent atrial fibrillation rate controlled Patient is a poor candidate for long-term anticoagulation secondary to fall risk CAD status clinically stable Thank you for your consultation AUSTIN TAMAYO APRN Mar 27, 2018 09:36 GREGORY BURKS MD Mar 27, 2018 15:58
[2018-03-27 11:41] VITALS: BP 108/62
--- NOTE | 2018-03-27 11:58 | PDOC ---
PROGRESS NOTES Chief Complaint Chief Complaint Presyncope or syncope HTN GERD Osteoarthritis Benign prostatic enlargement diabetes History of Present Illness History of Present Illness pt was seen and examine VSS DW with nurse chandni hill Preacher/friend at bedside Vitals Vitals Vital Signs Date Time Temp Pulse Resp B/P (MAP) Pulse Ox O2 Delivery O2 Flow Rate FiO2 03/27/18 11:41 98.3 63 18 108/62 (77) 97 Room Air 98.3 Physical Exam General: Alert, Oriented X3, Cooperative, No acute distress Lungs: Clear, Other Abdomen: Normal bowel sounds, Soft, No tenderness, No hepatosplenomegaly, No masses Extremities: No clubbing, No cyanosis, No edema, Normal pulses, No tenderness/ swelling Skin: No rashes, No breakdown, No significant lesion Labs LABS Laboratory Tests Test 03/26/18 13:12 03/26/18 17:22 03/26/18 18:00 03/26/18 21:00 White Blood Count 9.0 x10^3/uL (4.0-11.0) Red Blood Count 4.31 x10^6/uL (4.30-5.70) Hemoglobin 14.3 g/dL (13.0-17.5) Hematocrit 39.9 % (39.0-53.0) Mean Corpuscular Volume 93 fL (79-100) Mean Corpuscular Hemoglobin 33 pg (25-35) Mean Corpuscular Hemoglobin Concent 36 g/dL (31-37) Red Cell Distribution Width 13.3 % (11.5-14.5) Platelet Count 144 x10^3/uL (140-400) Neutrophils (%) (Auto) 86 % (31-73) Lymphocytes (%) (Auto) 6 % (24-48) Monocytes (%) (Auto) 6 % (0-9) Eosinophils (%) (Auto) 1 % (0-3) Basophils (%) (Auto) 1 % (0-3) Neutrophils # (Auto) 7.8 x10^3uL (1.8-7.7) Lymphocytes # (Auto) 0.6 x10^3/uL (1.0-4.8) Monocytes # (Auto) 0.5 x10^3/uL (0.0-1.1) Eosinophils # (Auto) 0.1 x10^3/uL (0.0-0.7) Basophils # (Auto) 0.1 x10^3/uL (0.0-0.2) Segmented Neutrophils % 74 % (35-66) Band Neutrophils % 10 % (0-9) Lymphocytes % 6 % (24-48) Monocytes % 8 % (0-10) Eosinophils % 2 % (0-5) Platelet Estimate Adequate (ADEQUATE) Prothrombin Time 15.6 SEC (11.7-14.0) Prothromb Time International Ratio 1.3 (0.8-1.1) D-Dimer (Tiana) 2.51 ug/mlFEU (0.00-0.50) Sodium Level 141 mmol/L (136-145) Potassium Level 4.2 mmol/L (3.5-5.1) Chloride Level 106 mmol/L (98-107) Carbon Dioxide Level 23 mmol/L (21-32) Anion Gap 12 (6-14) Blood Urea Nitrogen 21 mg/dL (8-26) Creatinine 1.4 mg/dL (0.7-1.3) Estimated GFR (Cockcroft-Gault) 47.8 BUN/Creatinine Ratio 15 (6-20) Glucose Level 149 mg/dL (70-99) Calcium Level 8.4 mg/dL (8.5-10.1) Magnesium Level 1.7 mg/dL (1.8-2.4) Total Bilirubin 0.6 mg/dL (0.2-1.0) Aspartate Amino Transf (AST/SGOT) 9 U/L (15-37) Alanine Aminotransferase (ALT/SGPT) 15 U/L (16-63) Alkaline Phosphatase 86 U/L (46-116) Creatine Kinase 53 U/L (39-308) Troponin I Quantitative < 0.017 ng/mL (0.000-0.055) < 0.017 ng/mL (0.000-0.055) < 0.017 ng/mL (0.000-0.055) OZ-Svc-D-Type Natriuretic Peptide 183 pg/mL (0-449) Total Protein 6.6 g/dL (6.4-8.2) Albumin 3.5 g/dL (3.4-5.0) Albumin/Globulin Ratio 1.1 (1.0-1.7) Glucose (Fingerstick) 133 mg/dL (70-99) Test 03/26/18 21:05 03/27/18 04:45 03/27/18 07:17 03/27/18 09:25 Glucose (Fingerstick) 166 mg/dL (70-99) 124 mg/dL (70-99) Urine Collection Type Unknown Urine Color Yellow Urine Clarity Clear Urine pH 6.5 Urine Specific [place] 1.025 Urine Protein Negative mg/dL (NEG-TRACE) Urine Glucose (UA) 100 mg/dL (NEG) Urine Ketones (Stick) Negative mg/dL (NEG) Urine Blood Negative (NEG) Urine Nitrite Negative (NEG) Urine Bilirubin Negative (NEG) Urine Urobilinogen Dipstick 1.0 mg/dL (0.2 mg/dL) Urine Leukocyte Esterase Negative (NEG) Urine RBC Occ /HPF (0-2) Urine WBC Occ /HPF (0-4) Urine Squamous Epithelial Cells Few /LPF Urine Bacteria 0 /HPF (0-FEW) Urine Mucus Mod /LPF Magnesium Level 1.6 mg/dL (1.8-2.4) Review of Systems Review of Systems CO fatigue CO hunger Assessment and Plan Assessmemt and Plan Problems Presyncope or syncope HTN GERD Osteoarthritis Benign prostatic enlargement diabetes Plan: Cardiac Monitoring Monitor hypomagnesium and creatine Recheck labs PT/OT home meds. awaiting cardiac consult Comment Review of Relevant I have reviewed the following items david (where applicable) has been applied. Labs Laboratory Tests Test 03/26/18 13:12 03/26/18 17:22 03/26/18 18:00 03/26/18 21:00 White Blood Count 9.0 x10^3/uL (4.0-11.0) Red Blood Count 4.31 x10^6/uL (4.30-5.70) Hemoglobin 14.3 g/dL (13.0-17.5) Hematocrit 39.9 % (39.0-53.0) Mean Corpuscular Volume 93 fL (79-100) Mean Corpuscular Hemoglobin 33 pg (25-35) Mean Corpuscular Hemoglobin Concent 36 g/dL (31-37) Red Cell Distribution Width 13.3 % (11.5-14.5) Platelet Count 144 x10^3/uL (140-400) Neutrophils (%) (Auto) 86 % (31-73) Lymphocytes (%) (Auto) 6 % (24-48) Monocytes (%) (Auto) 6 % (0-9) Eosinophils (%) (Auto) 1 % (0-3) Basophils (%) (Auto) 1 % (0-3) Neutrophils # (Auto) 7.8 x10^3uL (1.8-7.7) Lymphocytes # (Auto) 0.6 x10^3/uL (1.0-4.8) Monocytes # (Auto) 0.5 x10^3/uL (0.0-1.1) Eosinophils # (Auto) 0.1 x10^3/uL (0.0-0.7) Basophils # (Auto) 0.1 x10^3/uL (0.0-0.2) Segmented Neutrophils % 74 % (35-66) Band Neutrophils % 10 % (0-9) Lymphocytes % 6 % (24-48) Monocytes % 8 % (0-10) Eosinophils % 2 % (0-5) Platelet Estimate Adequate (ADEQUATE) Prothrombin Time 15.6 SEC (11.7-14.0) Prothromb Time International Ratio 1.3 (0.8-1.1) D-Dimer (Tiana) 2.51 ug/mlFEU (0.00-0.50) Sodium Level 141 mmol/L (136-145) Potassium Level 4.2 mmol/L (3.5-5.1) Chloride Level 106 mmol/L (98-107) Carbon Dioxide Level 23 mmol/L (21-32) Anion Gap 12 (6-14) Blood Urea Nitrogen 21 mg/dL (8-26) Creatinine 1.4 mg/dL (0.7-1.3) Estimated GFR (Cockcroft-Gault) 47.8 BUN/Creatinine Ratio 15 (6-20) Glucose Level 149 mg/dL (70-99) Calcium Level 8.4 mg/dL (8.5-10.1) Magnesium Level 1.7 mg/dL (1.8-2.4) Total Bilirubin 0.6 mg/dL (0.2-1.0) Aspartate Amino Transf (AST/SGOT) 9 U/L (15-37) Alanine Aminotransferase (ALT/SGPT) 15 U/L (16-63) Alkaline Phosphatase 86 U/L (46-116) Creatine Kinase 53 U/L (39-308) Troponin I Quantitative < 0.017 ng/mL (0.000-0.055) < 0.017 ng/mL (0.000-0.055) < 0.017 ng/mL (0.000-0.055) JS-Idq-V-Type Natriuretic Peptide 183 pg/mL (0-449) Total Protein 6.6 g/dL (6.4-8.2) Albumin 3.5 g/dL (3.4-5.0) Albumin/Globulin Ratio 1.1 (1.0-1.7) Glucose (Fingerstick) 133 mg/dL (70-99) Test 03/26/18 21:05 03/27/18 04:45 03/27/18 07:17 03/27/18 09:25 Glucose (Fingerstick) 166 mg/dL (70-99) 124 mg/dL (70-99) Urine Collection Type Unknown Urine Color Yellow Urine Clarity Clear Urine pH 6.5 Urine Specific [place] 1.025 Urine Protein Negative mg/dL (NEG-TRACE) Urine Glucose (UA) 100 mg/dL (NEG) Urine Ketones (Stick) Negative mg/dL (NEG) Urine Blood Negative (NEG) Urine Nitrite Negative (NEG) Urine Bilirubin Negative (NEG) Urine Urobilinogen Dipstick 1.0 mg/dL (0.2 mg/dL) Urine Leukocyte Esterase Negative (NEG) Urine RBC Occ /HPF (0-2) Urine WBC Occ /HPF (0-4) Urine Squamous Epithelial Cells Few /LPF Urine Bacteria 0 /HPF (0-FEW) Urine Mucus Mod /LPF Magnesium Level 1.6 mg/dL (1.8-2.4) Laboratory Tests Test 03/26/18 13:12 03/26/18 17:22 03/26/18 18:00 03/26/18 21:00 White Blood Count 9.0 x10^3/uL (4.0-11.0) Red Blood Count 4.31 x10^6/uL (4.30-5.70) Hemoglobin 14.3 g/dL (13.0-17.5) Hematocrit 39.9 % (39.0-53.0) Mean Corpuscular Volume 93 fL (79-100) Mean Corpuscular Hemoglobin 33 pg (25-35) Mean Corpuscular Hemoglobin Concent 36 g/dL (31-37) Red Cell Distribution Width 13.3 % (11.5-14.5) Platelet Count 144 x10^3/uL (140-400) Neutrophils (%) (Auto) 86 % (31-73) Lymphocytes (%) (Auto) 6 % (24-48) Monocytes (%) (Auto) 6 % (0-9) Eosinophils (%) (Auto) 1 % (0-3) Basophils (%) (Auto) 1 % (0-3) Neutrophils # (Auto) 7.8 x10^3uL (1.8-7.7) Lymphocytes # (Auto) 0.6 x10^3/uL (1.0-4.8) Monocytes # (Auto) 0.5 x10^3/uL (0.0-1.1) Eosinophils # (Auto) 0.1 x10^3/uL (0.0-0.7) Basophils # (Auto) 0.1 x10^3/uL (0.0-0.2) Segmented Neutrophils % 74 % (35-66) Band Neutrophils % 10 % (0-9) Lymphocytes % 6 % (24-48) Monocytes % 8 % (0-10) Eosinophils % 2 % (0-5) Platelet Estimate Adequate (ADEQUATE) Prothrombin Time 15.6 SEC (11.7-14.0) Prothromb Time International Ratio 1.3 (0.8-1.1) D-Dimer (Tiana) 2.51 ug/mlFEU (0.00-0.50) Sodium Level 141 mmol/L (136-145) Potassium Level 4.2 mmol/L (3.5-5.1) Chloride Level 106 mmol/L (98-107) Carbon Dioxide Level 23 mmol/L (21-32) Anion Gap 12 (6-14) Blood Urea Nitrogen 21 mg/dL (8-26) Creatinine 1.4 mg/dL (0.7-1.3) Estimated GFR (Cockcroft-Gault) 47.8 BUN/Creatinine Ratio 15 (6-20) Glucose Level 149 mg/dL (70-99) Calcium Level 8.4 mg/dL (8.5-10.1) Magnesium Level 1.7 mg/dL (1.8-2.4) Total Bilirubin 0.6 mg/dL (0.2-1.0) Aspartate Amino Transf (AST/SGOT) 9 U/L (15-37) Alanine Aminotransferase (ALT/SGPT) 15 U/L (16-63) Alkaline Phosphatase 86 U/L (46-116) Creatine Kinase 53 U/L (39-308) Troponin I Quantitative < 0.017 ng/mL (0.000-0.055) < 0.017 ng/mL (0.000-0.055) < 0.017 ng/mL (0.000-0.055) RV-Qya-V-Type Natriuretic Peptide 183 pg/mL (0-449) Total Protein 6.6 g/dL (6.4-8.2) Albumin 3.5 g/dL (3.4-5.0) Albumin/Globulin Ratio 1.1 (1.0-1.7) Glucose (Fingerstick) 133 mg/dL (70-99) Test 03/26/18 21:05 03/27/18 04:45 03/27/18 07:17 03/27/18 09:25 Glucose (Fingerstick) 166 mg/dL (70-99) 124 mg/dL (70-99) Urine Collection Type Unknown Urine Color Yellow Urine Clarity Clear Urine pH 6.5 Urine Specific [place] 1.025 Urine Protein Negative mg/dL (NEG-TRACE) Urine Glucose (UA) 100 mg/dL (NEG) Urine Ketones (Stick) Negative mg/dL (NEG) Urine Blood Negative (NEG) Urine Nitrite Negative (NEG) Urine Bilirubin Negative (NEG) Urine Urobilinogen Dipstick 1.0 mg/dL (0.2 mg/dL) Urine Leukocyte Esterase Negative (NEG) Urine RBC Occ /HPF (0-2) Urine WBC Occ /HPF (0-4) Urine Squamous Epithelial Cells Few /LPF Urine Bacteria 0 /HPF (0-FEW) Urine Mucus Mod /LPF Magnesium Level 1.6 mg/dL (1.8-2.4) Medications Current Medications Acetaminophen (Tylenol) 500 mg PRN Q6HRS PRN PO MILD PAIN / TEMP; Start at 14:15 Acetaminophen/ Codeine Phosphate (Tylenol #3) 1 tab PRN Q6HRS PRN PO MODERATE PAIN; Start 03/26/18 at 14:15 Ondansetron HCl (Zofran) 4 mg PRN Q6HRS PRN IV NAUSEA/VOMITING; Start 03/26/18 at 14:15 Ondansetron HCl (Zofran Odt) 4 mg PRN Q6HRS PRN PO NAUSEA/VOMITING; Start 03/26 at 14:15 Aspirin (Children'S Aspirin) 81 mg DAILY PO Last administered on 03/27/18at 08: 29; Start 03/27/18 at 09:00 Vitamin D (Vitamin D3) 1,000 unit DAILY PO Last administered on 03/27/18at 08:29 ; Start 03/27/18 at 09:00 Clopidogrel Bisulfate (Plavix) 75 mg DAILYWBKFT PO Last administered on at 08:29; Start 03/27/18 at 08:00 Metoprolol Tartrate (Lopressor) 25 mg BID PO Last administered on 03/27/18at 08: 29; Start 03/26/18 at 21:00 Lisinopril (Prinivil) 10 mg BID PO Last administered on 03/27/18at 08:31; Start 03/26/18 at 21:00 Glipizide (Glucotrol) 20 mg BIDBFRMEAL PO Last administered on 03/27/18at 08:30 ; Start 03/26/18 at 16:30 Cetirizine HCl (ZyrTEC) 10 mg PRN DAILY PRN PO ALLERGIES; Start 03/27/18 at 09: 00 Pantoprazole Sodium (Protonix) 40 mg DAILYAC PO Last administered on 03/27/18at 08:30; Start 03/27/18 at 07:30 Simvastatin (Zocor) 80 mg QHS PO Last administered on 03/26/18at 20:48; Start at 21:00 Terazosin HCl (Hytrin) 5 mg QHS PO Last administered on 03/26/18at 20:48; Start 03/26/18 at 21:00 Insulin Human Lispro (HumaLOG) 0-9 UNITS TIDWMEALS SQ ; Start 03/26/18 at 17:00 Dextrose (Dextrose 50%-Water Syringe) 12.5 gm PRN Q15MIN PRN IV SEE COMMENTS; Start 03/26/18 at 14:30 Magnesium Sulfate 50 ml @ 25 mls/hr 1X ONCE IV ; Start 03/26/18 at 14:30; Stop 03/26/18 at 14:30; Status DC Magnesium Sulfate/ Dextrose 100 ml @ 100 mls/hr 1X ONCE IV Last administered on 03/26/18at 16:09; Start 03/26/18 at 15:00; Stop 03/26/18 at 15:59; Status DC Active Scripts Active Clopidogrel (Clopidogrel Bisulfate) 75 Mg Tablet 75 Mg PO DAILYWBKFT 90 Days Reported Aspirin 81 Mg Tab.chew 81 Mg PO DAILY Loratadine 10 Mg Tablet 1 Tab PO DAILY PRN Vitamin D3 (Cholecalciferol (Vitamin D3)) 1,000 Unit Tablet 1 Tab PO DAILY Metoprolol Tartrate 25 Mg Tablet 1 Tab PO BID Omeprazole 20 Mg Capsule.dr 1 Cap PO DAILY Glipizide 10 Mg Tablet 2 Tab PO BID Fosinopril Sodium 20 Mg Tablet 0.5 Tab PO BID Terazosin Hcl 5 Mg Capsule 1 Cap PO QHS Simvastatin 80 Mg Tablet 1 Tab PO QHS Metformin Hcl 1,000 Mg Tablet 1 Tab PO BID Vitals/I & O Vital Sign - Last 24 Hours 03/26/18 03/26/18 03/26/18 03/26/18 12:50 13:38 14:38 15:30 Temp 98.1 97.8 98.1 97.8 Pulse 65 62 70 69 Resp 16 18 18 20 B/P (MAP) 109/63 (78) 110/67 (81) 103/63 (76) 133/64 (87) Pulse Ox 98 97 97 93 O2 Delivery Room Air Room Air Room Air Room Air 03/26/18 03/26/18 03/26/18 03/26/18 17:26 18:20 18:25 18:30 Pulse 62 74 84 B/P (MAP) 102/61 (75) 119/78 (92) 124/80 (95) O2 Delivery Room Air 03/26/18 03/26/18 03/26/18 03/26/18 19:50 20:00 20:48 20:48 Temp 98.1 98.1 Pulse 61 61 61 Resp 18 B/P (MAP) 128/62 (84) 128/62 128/62 Pulse Ox 96 O2 Delivery Room Air Room Air 03/26/18 03/26/18 03/27/18 03/27/18 20:49 22:50 03:25 07:00 Temp 98.3 98.7 98.1 98.3 98.7 98.1 Pulse 61 63 66 61 Resp 18 18 18 B/P (MAP) 128/62 97/58 (71) 98/64 (75) 114/79 (91) Pulse Ox 96 96 97 O2 Delivery Room Air Room Air Room Air 03/27/18 03/27/18 03/27/18 03/27/18 07:57 08:29 08:31 11:41 Temp 98.3 98.3 Pulse 78 78 63 Resp 18 B/P (MAP) 114/79 114/79 108/62 (77) Pulse Ox 97 O2 Delivery Room Air Room Air Intake and Output 03/26/18 03/26/18 03/27/18 15:00 23:00 07:00 Intake Total 100 ml 320 ml Output Total 300 ml Balance 100 ml 20 ml YOKO OCONNOR III DO Mar 27, 2018 11:58
[2018-03-27 15:36] VITALS: BP 99/60
[2018-03-27 19:35] VITALS: BP 116/68
[2018-03-27] MEDS: TERAZOSIN 5 MG CAPSULE. PO SCH (20:24)
[2018-03-27] MEDS: SIMVASTATIN 40 MG TABLET. PO SCH (20:24)
[2018-03-27 22:50] VITALS: BP 108/69
[2018-03-28 02:50] VITALS: BP 110/71
[2018-03-28 07:00] VITALS: BP 120/57
[2018-03-28] MEDS: INSULIN LISPRO 300 UNITS/3 ML INSULN.PEN. SQ SCH ×2 (08:00→12:00)
[2018-03-28] MEDS: CHOLECALCIFEROL (VITAMIN D3) 1,000 UNIT TABLET PO SCH (08:33)
[2018-03-28] MEDS: ASPIRIN CHEWABLE 81 MG TABLET. PO SCH (08:33)
[2018-03-28] MEDS: glipiZIDE 5 MG TABLET PO SCH (08:33)
[2018-03-28] MEDS: PANTOPRAZOLE 40 MG TABLET.DR. PO SCH (08:33)
[2018-03-28] MEDS: CLOPIDOGREL BISULFATE 75 MG TABLET PO SCH (08:34)
[2018-03-28] MEDS: METOPROLOL TART IMMED RELEASE 25 MG TABLET. PO SCH (08:34)
[2018-03-28] MEDS: LISINOPRIL 10 MG TABLET PO SCH (08:34)
[2018-03-28 09:46] LABS: BASO % 1 % (0-3); EOS # 0.2 x10^3/uL (0.0-0.7); EOS % 2 % (0-3); HEMOGLOBIN 14.2 g/dL (13.0-17.5); LYMPH # 0.7 x10^3/uL (1.0-4.8); LYMPH % 10 % (24-48); MEAN CORPUSCULAR HEMOGLOBIN 32 pg (25-35); MEAN CORPUSCULAR HGB CONC 35 g/dL (31-37); MEAN CORPUSCULAR VOLUME 93 fL (79-100); MONO # 0.5 x10^3/uL (0.0-1.1); MONO % 7 % (0-9); NEUT # 5.7 x10^3uL (1.8-7.7); NEUT % 80 % (31-73); PLATELET COUNT 144 x10^3/uL (140-400); RED CELL DISTRIBUTION WIDTH 13.4 % (11.5-14.5); WHITE BLOOD COUNT 7.1 x10^3/uL (4.0-11.0)
[2018-03-28 09:51] LABS: CALCIUM 8.8 mg/dL (8.5-10.1); CREATININE 1.2 mg/dL (0.7-1.3); GFR 57.1; MAGNESIUM 1.8 mg/dL (1.8-2.4); POTASSIUM 4.7 mmol/L (3.5-5.1)
[2018-03-28 11:00] VITALS: BP 107/65
--- NOTE | 2018-03-28 11:24 | PDOC ---
AUSTIN TAMAYO INSTRUCTIONAL TECHNOLOGY COORDINATOR 03/28/18 1124: CARDIO Progress Notes Date and Time Date of Service 03/28/2018 Time of Evaluation 1120 Subjective Subjective: No Chest Pain, No shortness of breath, No Palpitations, No Dizziness, Other (no further syncope) Vitals Vitals Vital Signs Date Time Temp Pulse Resp B/P (MAP) Pulse Ox O2 Delivery O2 Flow Rate FiO2 03/28/18 08:34 63 120/57 03/28/18 08:00 Room Air 03/28/18 07:00 98.3 18 97 98.3 Weight Weight [ ] Input and Output Intake and Output Intake and Output 03/28/18 07:00 Intake Total 1080 ml Balance 1080 ml Intake Oral 1080 ml # Voids 3 Laboratory Labs Laboratory Tests Test 03/27/18 12:01 03/27/18 16:56 03/27/18 20:39 03/28/18 07:25 Glucose (Fingerstick) 174 mg/dL (70-99) 133 mg/dL (70-99) 212 mg/dL (70-99) 154 mg/dL (70-99) Test 03/28/18 09:25 White Blood Count 7.1 x10^3/uL (4.0-11.0) Red Blood Count 4.40 x10^6/uL (4.30-5.70) Hemoglobin 14.2 g/dL (13.0-17.5) Hematocrit 41.0 % (39.0-53.0) Mean Corpuscular Volume 93 fL (79-100) Mean Corpuscular Hemoglobin 32 pg (25-35) Mean Corpuscular Hemoglobin Concent 35 g/dL (31-37) Red Cell Distribution Width 13.4 % (11.5-14.5) Platelet Count 144 x10^3/uL (140-400) Neutrophils (%) (Auto) 80 % (31-73) Lymphocytes (%) (Auto) 10 % (24-48) Monocytes (%) (Auto) 7 % (0-9) Eosinophils (%) (Auto) 2 % (0-3) Basophils (%) (Auto) 1 % (0-3) Neutrophils # (Auto) 5.7 x10^3uL (1.8-7.7) Lymphocytes # (Auto) 0.7 x10^3/uL (1.0-4.8) Monocytes # (Auto) 0.5 x10^3/uL (0.0-1.1) Eosinophils # (Auto) 0.2 x10^3/uL (0.0-0.7) Basophils # (Auto) 0.0 x10^3/uL (0.0-0.2) Sodium Level 141 mmol/L (136-145) Potassium Level 4.7 mmol/L (3.5-5.1) Chloride Level 104 mmol/L (98-107) Carbon Dioxide Level 28 mmol/L (21-32) Anion Gap 9 (6-14) Blood Urea Nitrogen 20 mg/dL (8-26) Creatinine 1.2 mg/dL (0.7-1.3) Estimated GFR (Cockcroft-Gault) 57.1 Glucose Level 224 mg/dL (70-99) Calcium Level 8.8 mg/dL (8.5-10.1) Magnesium Level 1.8 mg/dL (1.8-2.4) Physical Exam HEENT: Neck Supple W Full Motion Chest: Symmetric LUNGS: Clear to Auscultation Heart: S1S2, no murmurs, irregularly irregular, other (tele: atrial fib; a- paced) Assessment Assessment 1. syncope --out X 2 seconds --no tachy dysrhythmias on PPM interrogation; fastest rate - 119; chronic atrial fib --not orthostatic --non-compliant with meds; may not take for days then resumes; no breakfast yesterday morning - but took meds --? related to dehydration or blood sugar --f/u with cardiology in 4 weeks 2. bradycardia/sinus arrest with prior PPM 3. atrial fib; rate controlled --no OAC due to syncope/falls 4. DM, II --per primary service SREEKANTH CONNER MD 03/28/18 1420: CARDIO Progress Notes Plan Plan Pt. seen and examined. Agree with above SLIP PRESSER note. Supportive care. Called and notified daughter AUSTIN TAMAYO INSTRUCTIONAL TECHNOLOGY COORDINATOR Mar 28, 2018 11:24 SREEKANTH CONNER MD Mar 28, 2018 14:20
--- NOTE | 2018-03-28 13:23 | PDOC3 ---
Discharge Summary [facility] Date of Admission: Mar 26, 2018 Discharge Date: Mar 28, 2018 Admitting Diagnosis syncope. not clear etiology, could 2/2 vasovagal or dehydration, neg orthostatic HTN GERD Osteoarthritis Benign prostatic enlargement diabetes PPM works normal non compliance Final Diagnosis CONSULTS card Brief Hospital Course Mr. Chen is a 88 old M, lives alone, using a cane, independent, was sent for syncope while he was sitting at a [place]. He denies chest pain or dizzy. PPM checked fine. orthostatic BP ok. he is not taking his meds as supposed to. pt has no issues in the past 2 days here, dc home, refused HH AND REHAB. dc time 35min. General: Alert, Oriented X3, Cooperative, No acute distress Lungs: Clear, Other Abdomen: Normal bowel sounds, Soft, No tenderness, No hepatosplenomegaly, No masses Extremities: No clubbing, No cyanosis, No edema, Normal pulses, No tenderness/ swelling Skin: No rashes, No breakdown, No significant lesion Disposition home CONDITION AT DISCHARGE: Improved, Stable Scheduled Aspirin (Aspirin), 81 MG PO DAILY, (Reported) Cholecalciferol (Vitamin D3) (Vitamin D3), 1 TAB PO DAILY, (Reported) Clopidogrel Bisulfate (Clopidogrel), 75 MG PO DAILYWBKFT Fosinopril Sodium (Fosinopril Sodium), 0.5 TAB PO BID, (Reported) Glipizide (Glipizide), 2 TAB PO BID, (Reported) Metformin Hcl (Metformin Hcl), 1 TAB PO BID, (Reported) Metoprolol Tartrate (Metoprolol Tartrate), 1 TAB PO BID, (Reported) Omeprazole (Omeprazole), 1 CAP PO DAILY, (Reported) Simvastatin (Simvastatin), 1 TAB PO QHS, (Reported) Terazosin Hcl (Terazosin Hcl), 1 CAP PO QHS, (Reported) Scheduled PRN Loratadine (Loratadine), 1 TAB PO DAILY PRN for ALLERGIES, (Reported) EMI MOORE MD Mar 28, 2018 13:23
== END 2018-03-28 16:12 | disposition home or self-care (01) | DRG 640 ==
LOC: ER 12:37 → 2 NORTH 14:00
PROVIDERS: ADMIT Internal Medicine; ATTEND Internal Medicine
PROC: 4B02XSZ Measurement of Cardiac Pacemaker, External Approach (ICD-10-PCS; principal; 2018-03-26)
DX: E86.0 Dehydration (principal); N17.0 Acute kidney failure with tubular necrosis; K21.9 Gastro-esophageal reflux disease without esophagitis; M19.90 Unspecified osteoarthritis, unspecified site; E11.9 Type 2 diabetes mellitus without complications; Z88.0 Allergy status to penicillin; N40.0 Benign prostatic hyperplasia without lower urinary tract symptoms; I10 Essential (primary) hypertension; I45.5 Other specified heart block; I48.2 Chronic atrial fibrillation; I25.10 Atherosclerotic heart disease of native coronary artery without angina pectoris; Z91.19 Patient's noncompliance with other medical treatment and regimen; R79.1 Abnormal coagulation profile; Z95.0 Presence of cardiac pacemaker; Z96.659 Presence of unspecified artificial knee joint; E83.42 Hypomagnesemia; R55 Syncope and collapse
CPT/HCPCS: 36415; 70450; 71045; 78582; 80048; 80053; 81001; 82550; 82962; 83735; 83880; 84484; 85007; 85025; 85379; 85610; 93005; 96374; A9540; A9558; J1815; J3475; 97110; 97116; 97530; 97535; 99285-25

== ENCOUNTER 2018-08-12 13:48 | Emergency (ER) | payer OTHER, MEDICARE ==
[~2018-08-12] VITALS: Ht 177.8 cm; Wt 83.9 kg
[~2018-08-12 13:48] MED LIST changes: -FOSI20TA3 PO; +FOSI20TA7 PO; +OMEP20CA10 PO; -OMEP20CA9 PO; +SAXA5TAB PO; +SIMV80TA17 PO; -SIMV80TA7 PO
[2018-08-12] MEDS ORDERED: LIDOCAINE WITH 8.4% SOD BICARB 3 ML DISP.SYRIN. INJ ONE (14:30)
--- NOTE | 2018-08-12 14:42 | RAD ---
EXAM: PA, oblique and lateral views of the left hand DATE: 08/12/2018 2:13 PM INDICATION: LEFT HAND PAIN AFTER FALL TODAY COMPARISON: No Prior FINDINGS: There is no evidence for acute fracture or dislocation. Scattered IP joint degenerative changes are seen with joint space narrowing and associated proliferative change most prominent at the index and thumb DIP. There is also advanced thumb CMC joint degenerative change with joint space effacement and cystic change. IMPRESSION: 1. No evidence of acute fracture or dislocation. 2. Multifocal degenerative changes as above, most prominent at the thumb CMC joint and scattered IP joints. Electronically signed by: Ole Covington MD (08/12/2018 2:38 PM) [facility]
--- NOTE | 2018-08-12 15:04 | EKG ---
[facility] [address] [place] [address] Test Date: 2018-08-12 Test Time: 14:00:10 Pat Name: NANCY LYNN Department: Room: Gender: M Geography Head: : 1930 Requested By: MEGHA SARKAR Order Number: [id number] Reading MD: Jadiel Gonzales MD Measurements Intervals Knifley Rate: 64 P: TN: QRS: -59 QRSD: 84 T: 7 QT: 396 QTc: 413 Interpretive Statements V-PACED UNDERLYING ATRIAL FIBRILLATION Electronically Signed On 08-14-2018 10:10:27 POLYMER SPECIALIST by Jadiel Gonzales MD
--- NOTE | 2018-08-12 15:13 | RAD ---
Exam performed: CT scan of the head without contrast. Date of Service: 08/30/2018. Comparison: CT head without contrast from July 15, 2018. Clinical History: Patient fell today. Technique: Helical acquisitions are obtained from the foramen magnum to the vertex without intravenous administration of contrast. Findings: There is prominence of cortical sulci and ventricular system compatible with age related atrophy. There are areas of low-attenuation in both periventricular deep white matter suggesting small vessel ischemic changes. Normal radford-white differentiation is maintained. There is no extra axial fluid collection, intraparenchymal hemorrhage or mass lesion. The visualized portions of the orbits, paranasal sinuses and the mastoid air cells appear clear. The calvarium is intact. Impression: 1. Age-appropriate atrophy without any acute intracranial process. PQRS Compliance Statement: One or more of the following individualized dose reduction techniques were utilized for this examination: 1. Automated exposure control 2. Adjustment of the mA and/or kV according to patient size 3. Use of iterative reconstruction technique Electronically signed by: Sofie Thurman MD (08/12/2018 3:09 PM) [facility]
--- NOTE | 2018-08-12 15:58 | PHYS DOC ---
Past Medical History Past Medical History: A-Fib, Arthritis, CAD, CVA, Diabetes-Type II, GERD, High Cholesterol, Heart Disease, Hypertension, Other Additional Past Medical Histor: hernia; hemiplegia; falls; Past Surgical History: Knee Replacement, Pacemaker, Other Additional Past Surgical Histo: PTCA, STENTS Alcohol Use: Rarely Drug Use: None Adult General Chief Complaint Chief Complaint: MECHANICAL FALL HPI HPI Patient is a 88 year old male with hx of hypertension, high cholesterol, A. fib, pacemaker, CVA, chronic low back pain, chronic left leg pain, who presents today to be evaluated status post falling. Patient states he got up without calling for help from the commode and fell. Patient denies hitting his head on the ground. Denies any loss of consciousness. He has a laceration on the left dorsal hand as well as left dorsal wrist. Patient states he is on multiple medications including Plavix. Review of Systems Review of Systems Constitutional: Denies fever or chills [] Eyes: Denies change in visual acuity, redness, or eye pain [] HENT: Denies nasal congestion or sore throat [] Respiratory: Denies cough or shortness of breath [] Cardiovascular: No additional information not addressed in HPI [] GI: Denies abdominal pain, nausea, vomiting, bloody stools or diarrhea [] : Denies dysuria or hematuria [] Musculoskeletal: Reports left wrist and left hand pain. Reports lacerations to the left hand and left wrist. Integument: Denies rash or skin lesions [] Neurologic: Denies headache, focal weakness or sensory changes [] All other systems were reviewed and found to be within normal limits, except as documented in this note. Current Medications Current Medications Current Medications Medications (Trade) Dose Ordered Sig/[facility] Start Time Stop Time Status Last Admin Dose Admin Lidocaine/Sodium Bicarbonate (Buffered Lidocaine 1%) 6 ml 1X ONCE 08/12/18 14:30 08/12/18 14:31 DC 08/12/18 14:42 6 ML Allergies Allergies Allergies Coded Allergies Type Severity Reaction Last Updated Verified Penicillins Allergy Intermediate Hives 08/01/16 Yes Physical Exam Physical Exam Constitutional: Well developed, well nourished, no acute distress, non-toxic appearance. [] HENT: Normocephalic, atraumatic, bilateral external ears normal, oropharynx moist, no oral exudates, nose normal. [] Eyes: PERRLA, EOMI, conjunctiva normal, no discharge. [] Neck: Normal range of motion, no tenderness, supple, no stridor. [] Cardiovascular:Pace rhythm, Left upper chest pacemaker Lungs & Thorax: Bilateral breath sounds clear to auscultation [] Abdomen: Bowel sounds normal, soft, no tenderness, no masses, no pulsatile masses. [] Skin: Warm, dry, left dorsal hand along the middle finger knuckle and ring finger knuckle with this history of laceration approximately 3 cm long, there is no obvious tendon involvement, patient able to flex and extend the left fingers with no difficulties, adequate radial, medial, ulnar sensation to the left hand. There is also superficial laceration noted on the left dorsal wrist. Laceration approximately 0.5 cm. No obvious tendon involvement on this laceration either. No scaphoid tenderness. Old bruise on the left forearm ventral aspect Back: No tenderness, no CVA tenderness. [] Extremities: No tenderness, no cyanosis, no clubbing, ROM intact, no edema. [] Neurologic: Alert and oriented X 2-baseline, normal motor function, normal sensory function, no focal deficits noted. [] Psychologic: Affect normal, judgement normal, mood normal. [] Current Patient Data Vital Signs Vital Signs Date Time Temp Pulse Resp B/P (MAP) Pulse Ox O2 Delivery O2 Flow Rate FiO2 08/12/18 13:48 98.1 67 16 103/58 (73) 98 Room Air 98.1 EKG EKG [] Radiology/Procedures Radiology/Procedures []PROCEDURE: HAND LEFT 3V EXAM: PA, oblique and lateral views of the left hand DATE: 08/12/2018 2:13 PM INDICATION: LEFT HAND PAIN AFTER FALL TODAY COMPARISON: No Prior FINDINGS: There is no evidence for acute fracture or dislocation. Scattered IP joint degenerative changes are seen with joint space narrowing and associated proliferative change most prominent at the index and thumb DIP. There is also advanced thumb CMC joint degenerative change with joint space effacement and cystic change. IMPRESSION: 1. No evidence of acute fracture or dislocation. 2. Multifocal degenerative changes as above, most prominent at the thumb CMC joint and scattered IP joints. Electronically signed by: Ole Jasso MD (08/12/2018 2:38 PM) [facility] DICTATED and SIGNED BY: OLE JASSO MD DATE: 08/12/18 0706 PROCEDURE: CT HEAD WO CONTRAST Exam performed: CT scan of the head without contrast. Date of Service: 08/30/2018. Comparison: CT head without contrast from July 15, 2018. Clinical History: Patient fell today. Technique: Helical acquisitions are obtained from the foramen magnum to the vertex without intravenous administration of contrast. Findings: There is prominence of cortical sulci and ventricular system compatible with age related atrophy. There are areas of low-attenuation in both periventricular deep white matter suggesting small vessel ischemic changes. Normal radford-white differentiation is maintained. There is no extra axial fluid collection, intraparenchymal hemorrhage or mass lesion. The visualized portions of the orbits, paranasal sinuses and the mastoid air cells appear clear. The calvarium is intact. Impression: 1. Age-appropriate atrophy without any acute intracranial process. PQRS Compliance Statement: One or more of the following individualized dose reduction techniques were utilized for this examination: 1. Automated exposure control 2. Adjustment of the mA and/or kV according to patient size 3. Use of iterative reconstruction technique Electronically signed by: Sofie Thurman MD (08/12/2018 3:09 PM) [facility] DICTATED and SIGNED BY: SOFIE THURMAN MD DATE: 08/12/18 1508 Laceration/Wound Repair Wound Location: Left hand laceration Wound's Depth, Shape: C Wound Length (cm): Approximately 3 cm Wound Explored: clean Irrigated w/ Saline (ccs): 100 Betadine Prep?: Yes Anesthesia: 1% buffered lidocaine Volume Anesthetic (ccs): Approximately 4 mL Wound Repaired With: Ethilon Suture Size/Type: 5.0/interrupted sutures Number of Sutures: 7 Progress : Wound was covered with nonstick dressing Course & Med Decision Making Course & Med Decision Making Pertinent Labs and Imaging studies reviewed. (See chart for details) This is a 88-year-old male patient presented to the ED today to be evaluated from the local group home. Patient fell while trying to get off the commode. Patient is complaining of left hand and left wrist pain as well as laceration to the left hand and left wrist. Laceration to the wrist is superficial and does not need stitches. Laceration to the left hand was closed by me as noted in procedures. Tetanus was updated. Left hand x-rays as well as CT of the head negative for any acute findings. Wound care instructions and return precautions provided. Daughter in the Ed, she states current mentation is normal, she states patient has hx of some confusion and left sided weakness. She states patient has had multiple falls in the group home because he does not call for help before moving. Sheldon Disclaimer Peteon Disclaimer This electronic medical record was generated, in whole or in part, using a voice recognition dictation system. Departure Departure Impression: Primary Impression: Fall Additional Impressions: Laceration of left hand Laceration of left wrist Disposition: HOME, SELF-CARE Condition: STABLE Referrals: UNKNOWN PCP NAME (PCP) Follow-up with your doctor in 7-10 days for stitches removal Patient Instructions: Contusion, Fall Prevention and Home Safety, Laceration Care, Adult Additional Instructions: You were evaluated at the emergency room after falling. You have a laceration to the left hand that was repaired with stitches. Keep the area clean and dry. You can shower. Apply Neosporin twice a day to the area. Follow-up with your own doctor or ED in 7-10 days for stitches removal Problem Qualifiers Primary Impression: Fall Encounter type: initial encounter Qualified Codes: W19.XXXA - Unspecified fall, initial encounter Additional Impressions: Laceration of left hand Encounter type: initial encounter Foreign body presence: without foreign body Qualified Codes: S61.412A - Laceration without foreign body of left hand , initial encounter Laceration of left wrist Encounter type: initial encounter Qualified Codes: S61.512A - Laceration without foreign body of left wrist, initial encounter EMGHA SARKAR APRN Aug 12, 2018 15:58
[2018-08-12 16:49] VITALS: BP 119/77
== END 2018-08-12 17:20 | disposition home or self-care (01) ==
LOC: ER 13:48
DX: S61.412A Laceration without foreign body of left hand, initial encounter (principal); S61.512A Laceration without foreign body of left wrist, initial encounter; I48.91 Unspecified atrial fibrillation; I10 Essential (primary) hypertension; G89.29 Other chronic pain; M79.605 Pain in left leg; M54.5 Low back pain; E78.00 Pure hypercholesterolemia, unspecified; Z86.73 Personal history of transient ischemic attack (TIA), and cerebral infarction without residual deficits; Z95.0 Presence of cardiac pacemaker; Z95.5 Presence of coronary angioplasty implant and graft; Z88.0 Allergy status to penicillin; W18.39XA Other fall on same level, initial encounter; Y93.89 Activity, other specified; Y92.89 Other specified places as the place of occurrence of the external cause; Y99.8 Other external cause status
CPT/HCPCS: 12002; 70450; 73130; 93005; 99284-25

== ENCOUNTER 2019-08-15 05:50 | Emergency (ER) | payer MEDICARE ==
[~2019-08-15] VITALS: Ht 182.9 cm; Wt 90.9 kg
[~2019-08-15 05:50] MED LIST changes: -OMEP20CA10 PO; +OMEP20CA16 PO
--- NOTE | 2019-08-15 06:21 | PHYS DOC ---
Past Medical History Past Medical History: A-Fib, Arthritis, CAD, CVA, Diabetes-Type II, GERD, High Cholesterol, Heart Disease, Hypertension, Other Additional Past Medical Histor: hernia; hemiplegia; falls; Past Surgical History: Knee Replacement, Pacemaker, Other Additional Past Surgical Histo: PTCA, STENTS Alcohol Use: Rarely Drug Use: None Social History Narrative: lives in a nursing facility Adult General Chief Complaint Chief Complaint: WEAKNESS/GENERALIZED HPI HPI Patient is an 89-year-old male who presents to the emergency department for eval uation from a nursing facility. His chief complaint is "left side pain", although the patient is not able to elaborate clearly where his pain is, as stated in his chest or flank or abdomen. He has not had any nausea vomiting, is uncertain if he has had any blood in the stool. He does admit to a light cough but is not coughing at this time. There have been no reports of fevers. He has a history of prior strokes, and takes Eliquis, among other medications. There are no known alleviating or exacerbating factors to his symptoms. History is limited secondary to the patient being a poor historian. Review of Systems Review of Systems Constitutional: Denies fever or chills [] Eyes: Denies change in visual acuity, redness, or eye pain [] HENT: Denies nasal congestion or sore throat [] Respiratory: Denies shortness of breath [] Cardiovascular: The patient denies any shortness of breath, chest pain, palpitations, or orthopnea [] GI: Denies nausea, vomiting, bloody stools or diarrhea [] : Denies dysuria or hematuria [] Musculoskeletal: Denies back pain or joint pain [] Integument: Denies rash or skin lesions [] Neurologic: Denies headache, focal weakness or sensory changes [] Endocrine: Denies polyuria or polydipsia [] All other systems were reviewed and found to be within normal limits, except as documented in this note. Current Medications Current Medications Current Medications Medications (Trade) Dose Ordered Sig/Brendon Start Time Stop Time Status Last Admin Dose Admin Info (CONTRAST GIVEN -- Rx MONITORING) 1 each PRN DAILY PRN 08/15/19 07:15 08/17/19 07:14 Iohexol (Omnipaque 300 Mg/ml) 60 ml 1X ONCE 08/15/19 07:00 08/15/19 07:02 DC 2/5/20 07:16 60 ML Sodium Chloride 1,000 ml @ 100 mls/hr Q10H 08/15/19 06:30 08/15/19 16:29 08/15/19 06:30 100 MLS/HR Allergies Allergies Allergies Coded Allergies Type Severity Reaction Last Updated Verified Penicillins Allergy Intermediate Hives 08/01/16 Yes Physical Exam Physical Exam PHYSICAL EXAM: CONSTITUTIONAL: Well developed, well nourished HEAD: normocephalic, atraumatic EENT: PERRL, EOMI. Conjunctivae normal color, sclerae non-icteric; moist mucous membranes. NECK: Supple, non-tender; no meningismus. LUNGS: Lungs CTA, breathing even and unlabored. Normal air movement. HEART: Regular rate and rhythm, no murmur CHEST: No deformity; non-tender ABDOMEN: The abdomen is soft, there is diffuse tenderness to palpation to the entire abdomen, without focal tenderness, rebound, or guarding, no masses or bruits. EXTREM: Normal ROM; no deformity, no calf tenderness. Normal pulses palpable in all extremities. There is no pedal edema. SKIN: No rash; no diaphoresis NEURO: Alert; normal speech, mildly impaired cognition; CN's grossly intact; strength grossly intact without focal deficit. BACK: No CVA TTP. Current Patient Data Vital Signs Vital Signs Date Time Temp Pulse Resp B/P (MAP) Pulse Ox O2 Delivery O2 Flow Rate FiO2 08/15/19 05:50 98.2 79 17 134/82 (99) 97 Room Air 98.2 Lab Values Laboratory Tests Test 08/15/19 06:25 08/15/19 08:21 White Blood Count 7.2 x10^3/uL (4.0-11.0) Red Blood Count 4.12 x10^6/uL (4.30-5.70) L Hemoglobin 13.4 g/dL (13.0-17.5) Hematocrit 38.1 % (39.0-53.0) L Mean Corpuscular Volume 93 fL (79-100) Mean Corpuscular Hemoglobin 33 pg (25-35) Mean Corpuscular Hemoglobin Concent 35 g/dL (31-37) Red Cell Distribution Width 13.5 % (11.5-14.5) Platelet Count 153 x10^3/uL (140-400) Neutrophils (%) (Auto) 75 % (31-73) H Lymphocytes (%) (Auto) 11 % (24-48) L Monocytes (%) (Auto) 9 % (0-9) Eosinophils (%) (Auto) 4 % (0-3) H Basophils (%) (Auto) 1 % (0-3) Neutrophils # (Auto) 5.3 x10^3/uL (1.8-7.7) Lymphocytes # (Auto) 0.8 x10^3/uL (1.0-4.8) L Monocytes # (Auto) 0.7 x10^3/uL (0.0-1.1) Eosinophils # (Auto) 0.3 x10^3/uL (0.0-0.7) Basophils # (Auto) 0.1 x10^3/uL (0.0-0.2) Prothrombin Time 14.4 SEC (11.7-14.0) H Prothrombin Time INR 1.2 (0.8-1.1) H Sodium Level 139 mmol/L (136-145) Potassium Level 4.6 mmol/L (3.5-5.1) Chloride Level 106 mmol/L (98-107) Carbon Dioxide Level 28 mmol/L (21-32) Anion Gap 5 (6-14) L Blood Urea Nitrogen 27 mg/dL (8-26) H Creatinine 1.2 mg/dL (0.7-1.3) Estimated GFR (Cockcroft-Gault) 57.0 BUN/Creatinine Ratio 23 (6-20) H Glucose Level 220 mg/dL (70-99) H Lactic Acid Level 1.3 mmol/L (0.4-2.0) Calcium Level 8.5 mg/dL (8.5-10.1) Total Bilirubin 0.8 mg/dL (0.2-1.0) Aspartate Amino Transferase (AST) 12 U/L (15-37) L Alanine Aminotransferase (ALT) 13 U/L (16-63) L Alkaline Phosphatase 85 U/L (46-116) Troponin I Quantitative < 0.017 ng/mL (0.000-0.055) WJ-Ccx-A-Type Natriuretic Peptide 1015 pg/mL (0-449) H Total Protein 6.1 g/dL (6.4-8.2) L Albumin 3.3 g/dL (3.4-5.0) L Albumin/Globulin Ratio 1.2 (1.0-1.7) Lipase 160 U/L (73-393) Influenza Type A Antigen Negative (NEGATIVE) Influenza Type B Antigen Negative (NEGATIVE) Urine Color Yellow Urine Clarity Clear Urine pH 8.0 Urine Specific [place] >=1.030 Urine Protein Negative mg/dL (NEG-TRACE) Urine Glucose (UA) 250 mg/dL (NEG) Urine Ketones (Stick) Negative mg/dL (NEG) Urine Blood Negative (NEG) Urine Nitrite Negative (NEG) Urine Bilirubin Negative (NEG) Urine Urobilinogen Dipstick 1.0 mg/dL (0.2 mg/dL) Urine Leukocyte Esterase Negative (NEG) Urine RBC Rare /HPF (0-2) Urine WBC 1-4 /HPF (0-4) Urine Squamous Epithelial Cells Occ /LPF Urine Amorphous Sediment Present /HPF Urine Bacteria 0 /HPF (0-FEW) Urine Mucus Slight /LPF Laboratory Tests 08/15/19 06:25 Laboratory Tests 08/15/19 06:25 EKG EKG [] Radiology/Procedures Radiology/Procedures PROCEDURE: PORTABLE CHEST 1V PORTABLE CHEST 1V Clinical History: Weakness Technique: AP view of the chest was obtained at 08/15/2019 6:15 AM. Comparison: None. Findings: The cardiomediastinal silhouette is normal. The pulmonary vasculature is normal. There is linear opacities in the right lung base. The left-sided dual-lead pacemaker. Impression: Mild right basal infiltrate likely discoid atelectasis.[] PROCEDURE: CT ABD PELV W/ IV CONTRST ONLY EXAM: CT Abdomen and Pelvis with IV contrast INDICATION: Abdominal pain and tenderness TECHNIQUE: Multi-detector row CT images were acquired from the lung bases through the abdomen and pelvis with the use of IV contrast. Sagittal and coronal images were acquired from the transaxial data. All CT scans performed at this facility utilize dose optimization techniques as appropriate to the exam, including the following: Automated exposure control and adjustment of the mA and/or KV according to patient size (this includes techniques or standardized protocols for targeted exams where dose is indication/reason for exam). IV CONTRAST: Administered ORAL CONTRAST: Not administered COMPARISON: Abdomen and pelvis CT without IV contrast of 05/15/2017. FINDINGS: Some respiratory motion artifact degrades detail LOWER CHEST: Pacemaker leads LIVER: Low-density round nodules in the right hepatic lobe compatible with cysts are redemonstrated unchanged in size measuring 1.6 and 2.3 cm in hepatic segments 8 and 5 respectively. BILIARY SYSTEM: Gallbladder is unremarkable. Bile ducts are not dilated. PANCREAS: Unremarkable SPLEEN: Unremarkable ADRENALS: Unremarkable KIDNEYS & URETERS: Stable bilateral perirenal soft tissue stranding of doubtful clinical significance. BLADDER: Unremarkable REPRODUCTIVE ORGANS: Unremarkable GASTROINTESTINAL: The stomach, small bowel, and colon are unremarkable. The appendix is not well seen but there are no findings suggestive of acute appendicitis. MESENTERY/PERITONEUM/RETROPERITONEUM: Unremarkable VASCULAR: Unremarkable LYMPH NODES: No adenopathy OSSEOUS & SOFT TISSUES: Similar lumbar spinal degenerative spondylosis. IMPRESSION: Motion degraded study showing no specific findings to explain abdominal pain. Course & Med Decision Making Course & Med Decision Making Pertinent Labs and Imaging studies reviewed. (See chart for details) [] 10:30 AM: The patient's condition remains stable. He complains of no pain at rest at this time, does complain of some discomfort in his left side with mild coughing or movement. It appears that this has been chronic. Evaluation has failed to reveal any emergent or abnormal pathology of significance. I did discuss importance of close outpatient follow-up with his primary provider and return precautions. Dragon Disclaimer Dragon Disclaimer This electronic medical record was generated, in whole or in part, using a voice recognition dictation system. Departure Departure Impression: Primary Impression: Chest wall pain Additional Impression: Abdominal tenderness Disposition: 01 HOME, SELF-CARE Condition: STABLE Referrals: UNKNOWN PCP NAME (PCP) Patient Instructions: Abdominal Pain, Chest Wall Pain Additional Instructions: Continue previously prescribed medications. Follow up with your primary care provider for further evaluation and treatment. Problem Qualifiers HAI ANDRWES MD Aug 15, 2019 06:21
--- NOTE | 2019-08-15 06:22 | EKG ---
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
[2019-08-15] MEDS ORDERED: IV NORMAL SALINE 1000ML BAG 1,000 ML IV SCH (06:30)
--- NOTE | 2019-08-15 06:35 | RAD ---
PORTABLE CHEST 1V Clinical History: Weakness Technique: AP view of the chest was obtained at 08/15/2019 6:15 AM. Comparison: None. Findings: The cardiomediastinal silhouette is normal. The pulmonary vasculature is normal. There is linear opacities in the right lung base. The left-sided dual-lead pacemaker. Impression: Mild right basal infiltrate likely discoid atelectasis. Electronically signed by: Eder Vásquez III, MD (08/15/2019 6:32 AM) [id number]
[2019-08-15 06:45] LABS: BASO # 0.1 x10^3/uL (0.0-0.2); BASO % 1 % (0-3); EOS # 0.3 x10^3/uL (0.0-0.7); EOS % 4 % (0-3); HEMATOCRIT 38.1 % (39.0-53.0); HEMOGLOBIN 13.4 g/dL (13.0-17.5); LYMPH # 0.8 x10^3/uL (1.0-4.8); LYMPH % 11 % (24-48); MEAN CORPUSCULAR HEMOGLOBIN 33 pg (25-35); MEAN CORPUSCULAR HGB CONC 35 g/dL (31-37); MEAN CORPUSCULAR VOLUME 93 fL (79-100); MONO # 0.7 x10^3/uL (0.0-1.1); MONO % 9 % (0-9); NEUT # 5.3 x10^3/uL (1.8-7.7); NEUT % 75 % (31-73); PLATELET COUNT 153 x10^3/uL (140-400); RED BLOOD COUNT 4.12 x10^6/uL (4.30-5.70); RED CELL DISTRIBUTION WIDTH 13.5 % (11.5-14.5); WHITE BLOOD COUNT 7.2 x10^3/uL (4.0-11.0)
[2019-08-15 06:55] LABS: CALCIUM 8.5 mg/dL (8.5-10.1); CREATININE 1.2 mg/dL (0.7-1.3); POTASSIUM 4.6 mmol/L (3.5-5.1)
[2019-08-15] MEDS ORDERED: IOHEXOL 300 MG/ML 100ML VIAL. IV ONE (07:00)
[2019-08-15 07:01] LABS: ALBUMIN 3.3 g/dL (3.4-5.0); ALBUMIN/GLOBULIN RATIO 1.2 (1.0-1.7); TOTAL BILIRUBIN 0.8 mg/dL (0.2-1.0); TOTAL PROTEIN 6.1 g/dL (6.4-8.2)
[2019-08-15 07:09] LABS: INFLUENZA A PATIENT NEGATIVE (NEGATIVE); INFLUENZA B PATIENT NEGATIVE (NEGATIVE)
[2019-08-15 07:13] LABS: PROTHROMBIN TIME PATIENT 14.4 SEC (11.7-14.0)
[2019-08-15] MEDS ORDERED: CONTRAST GIVEN. MC PRN (07:15)
--- NOTE | 2019-08-15 07:48 | RAD ---
EXAM: CT Abdomen and Pelvis with IV contrast INDICATION: Abdominal pain and tenderness TECHNIQUE: Multi-detector row CT images were acquired from the lung bases through the abdomen and pelvis with the use of IV contrast. Sagittal and coronal images were acquired from the transaxial data. All CT scans performed at this facility utilize dose optimization techniques as appropriate to the exam, including the following: Automated exposure control and adjustment of the mA and/or KV according to patient size (this includes techniques or standardized protocols for targeted exams where dose is indication/reason for exam). IV CONTRAST: Administered ORAL CONTRAST: Not administered COMPARISON: Abdomen and pelvis CT without IV contrast of 05/15/2017. FINDINGS: Some respiratory motion artifact degrades detail LOWER CHEST: Pacemaker leads LIVER: Low-density round nodules in the right hepatic lobe compatible with cysts are redemonstrated unchanged in size measuring 1.6 and 2.3 cm in hepatic segments 8 and 5 respectively. BILIARY SYSTEM: Gallbladder is unremarkable. Bile ducts are not dilated. PANCREAS: Unremarkable SPLEEN: Unremarkable ADRENALS: Unremarkable KIDNEYS & URETERS: Stable bilateral perirenal soft tissue stranding of doubtful clinical significance. BLADDER: Unremarkable REPRODUCTIVE ORGANS: Unremarkable GASTROINTESTINAL: The stomach, small bowel, and colon are unremarkable. The appendix is not well seen but there are no findings suggestive of acute appendicitis. MESENTERY/PERITONEUM/RETROPERITONEUM: Unremarkable VASCULAR: Unremarkable LYMPH NODES: No adenopathy OSSEOUS & SOFT TISSUES: Similar lumbar spinal degenerative spondylosis. IMPRESSION: Motion degraded study showing no specific findings to explain abdominal pain. Electronically signed by: Shima Ramos MD (08/15/2019 7:45 AM) [facility]
[2019-08-15 08:49] LABS: BILIRUBIN,URINE NEGATIVE (NEG); CLARITY,URINE CLEAR; COLOR,URINE YELLOW; NITRITE,URINE NEGATIVE (NEG); PROTEIN,URINE NEGATIVE (NEG-TRACE)
[2019-08-15 09:06] LABS: BACTERIA,URINE 0 /HPF (0-FEW); RBC,URINE RARE /HPF (0-2)
[2019-08-15 09:07] LABS: AMORPHOUS SEDIMENT,UR PRESENT /HPF; SQUAMOUS EPITHELIAL CELL,UR OCC /LPF
[2019-08-15 11:00] VITALS: BP 150/80
== END 2019-08-15 13:17 | disposition home or self-care (01) ==
LOC: ER 05:50
DX: R07.89 Other chest pain (principal); R05 Cough; R10.9 Unspecified abdominal pain; I48.20 Chronic atrial fibrillation, unspecified; M19.90 Unspecified osteoarthritis, unspecified site; I25.10 Atherosclerotic heart disease of native coronary artery without angina pectoris; I97.821 Postprocedural cerebrovascular infarction following other surgery; E11.9 Type 2 diabetes mellitus without complications; K21.9 Gastro-esophageal reflux disease without esophagitis; E78.00 Pure hypercholesterolemia, unspecified; I11.9 Hypertensive heart disease without heart failure; Z95.0 Presence of cardiac pacemaker; Z98.890 Other specified postprocedural states; Z88.0 Allergy status to penicillin
CPT/HCPCS: 36415; 71045; 74177; 80053; 81001; 83605; 83690; 83880; 84484; 85025; 85610; 87804; 93005; 99285; J7030; Q9967